=== PATIENT | male | born 1975 | race Two or more races ===

== ENCOUNTER 2016-10-16 12:48 | Emergency (ER) | payer MEDICAID ==
[~2016-10-16] VITALS: Ht 172.7 cm; Wt 72.6 kg
[~2016-10-16 12:48] MED LIST: COLACE100 MG ORAL; METFORMIN HCL500 M1 ORAL; NORCO 5-325 TA1 EAC1 ORAL; NORCO 5-325 TA1 EACH ORAL
[2016-10-16 13:04] VITALS: BP 107/77
--- NOTE | 2016-10-16 13:34 | Emergency Room Report ---
History of Present Illness General Chief Complaint: General Complaint Source: Patient Present Illness HPI 41-year-old male presents to the emergency department requesting evaluation for return to work status post cholecystectomy x2 weeks. Patient states his has not had any followup with his surgeon as he has been having difficulty contacting the surgeon to make an appointment. Patient states he needs to return to work patient had saurabh removed here in the emergency department at recent visit. Patient denies erythema, discharge or pain at the surgical site. He denies nausea, vomiting, fevers, chills. Denies CP, Palpitations, LOC, AMS , dizziness, Changes in Vision, Sensation, paresthesias, or a sudden severe headache. Allergies: Coded Allergies: No Known Allergies (Unverified , 10/08/16) Patient History Past Medical History: see triage record Past Surgical History: none Pertinent Family History: none Immunizations: UTD Reviewed Nursing Documentation: PMH: Agreed, PSxH: Agreed Nursing Documentation-PMH Past Medical History: No History, Except For Hx Hypertension: Yes Hx Diabetes: Yes Review of Systems All Other Systems: negative except mentioned in HPI Physical Exam Vital Signs Date Time Temp Pulse Resp B/P Pulse Ox O2 Delivery O2 Flow Rate FiO2 10/16/16 13:04 98.4 96 18 107/77 99 Room Air Sp02 EP Interpretation: reviewed, normal General Appearance: no apparent distress, alert, GCS 15, non-toxic Head: normocephalic, atraumatic Eyes: bilateral eye PERRL, bilateral eye normal inspection ENT: hearing grossly normal, normal pharynx, no angioedema, normal voice Neck: full range of motion, supple/symm/no masses Respiratory: chest non-tender, lungs clear, normal breath sounds, speaking full sentences Cardiovascular #1: regular rate, rhythm, no edema Gastrointestinal: normal bowel sounds, non tender, soft, no guarding, no rebound Rectal: deferred Genitourinary: normal inspection, no CVA tenderness Musculoskeletal: back normal, gait/station normal, normal range of motion, non- tender, no calf tenderness Neurologic: alert, oriented x3, responsive, motor strength/tone normal, sensory intact, speech normal Psychiatric: judgement/insight normal, memory normal, mood/affect normal, no suicidal/homicidal ideation Skin: normal color, no rash, warm/dry, well hydrated, wd healing/no infection noted - Large surgical incision and approximately 5 inches across the right upper quadrant noted, erythema or increased temperature to palpation no evidence of secondary infection at this time. Lymphatic: no adenopathy Medical Decision Making PA Attestation Dr. Hurtado is my supervising Physician whom patient management has been discussed with. Diagnostic Impression: Primary Impression: Status post biliary surgery Additional Impression: Visit for wound check ER Course Pt. presents to the ED for medical clearance to return to work status post cholecystectomy several weeks ago with inability to follow up with surgeon. Ddx considered but are not limited to wound dehiscence, cellulitis, healing surgical incision Vital signs: are WNL, pt. is afebrile H&PE are most consistent with: normal limited physical examination no evidence of infection. ORDERS: none required at this time, the diagnosis is clinical ED INTERVENTIONS: -Discussed with patient that he needs to follow up with the surgeon or at the hospital where surgery was performed as I am unable to clear him for return to work because I was not involved with the surgical aspect. I offered to help patient attempted to contact DrVidhi called Dr's change service and left a message which also is not returned. Messaging public service administrator gave me alternative number for the surgeon, and I provided that #2 the patient. DISCHARGE: At this time pt. is stable for d/c to law enforcement. Will provide printed patient care instructions, and any necessary prescriptions. Care plan and follow up instructions have been discussed with the patient prior to discharge. Last Vital Signs Date Time Temp Pulse Resp B/P Pulse Ox O2 Delivery O2 Flow Rate FiO2 10/16/16 13:04 98.4 96 18 107/77 99 Room Air Disposition: HOME, SELF-CARE Condition: Stable Patient Instructions: Medical Screening Exam Additional Instructions: your surgeon has been paged will discuss that he needs to schedule your follow up evaluation the office number is Follow up with Surgeon in 3-5 days Return sooner to ED if new symptoms occur, or current symptoms become worse. Kamryn Hargrove Oct 16, 2016 13:34
[2016-10-16 13:40] VITALS: BP 107/77
== END 2016-10-16 13:42 | disposition home or self-care (01) ==
LOC: EMR 13:36
DX: Z48.02 Encounter for removal of sutures (principal); Z90.49 Acquired absence of other specified parts of digestive tract; I10 Essential (primary) hypertension; E11.9 Type 2 diabetes mellitus without complications
CPT/HCPCS: 99282

== ENCOUNTER 2017-08-24 15:56 | Emergency (ER) | payer SELFPAY ==
[~2017-08-24] VITALS: Ht 170.2 cm; Wt 71.7 kg
[2017-08-24] MEDS ORDERED: NKM (16:09)
[2017-08-24 16:17] VITALS: BP 134/84
[2017-08-24] MEDS ORDERED: Ketorolac 30mg Inj IV ONE (16:30)
[2017-08-24 17:35] LABS: ANION GAP 9 mmol/L (5-15); CALCIUM 8.8 MG/DL (8.5-10.1); CARBON DIOXIDE 27 MMOL/L (21-32); CHLORIDE 99 MMOL/L (98-107); CREATININE 0.8 MG/DL (0.55-1.30); GLOMERULAR FILTRATION RATE > 60 mL/min (>60); POTASSIUM 3.9 MMOL/L (3.5-5.1); SODIUM 135 MMOL/L (136-145)
[2017-08-24 17:42] LABS: BASOPHILS % (AUTO) 0.9 % (0.0-2.0); EOSINOPHILS % (AUTO) 0.4 % (0.0-3.0); LYMPHOCYTES % (AUTO) 9.1 % (20.0-45.0); MEAN CORPUSCULAR HGB CONC 31.7 G/DL (32.0-36.0); MEAN CORPUSCULAR VOLUME 95 FL (80-99); MEAN PLATELET VOLUME 8.6 FL (6.5-10.1); MONOCYTES % (AUTO) 5.6 % (1.0-10.0); PLATELET COUNT 235 K/UL (150-450); RED BLOOD COUNT 5.45 M/UL (4.70-6.10); RED CELL DISTRIBUTION WIDTH 11.1 % (11.6-14.8); WHITE BLOOD COUNT 12.3 K/UL (4.8-10.8)
[2017-08-24 17:48] LABS: ALANINE AMINOTRANSFERASE 25 U/L (12-78); ALBUMIN/GLOBULIN RATIO 0.6 (1.0-2.7); ASPARTATE AMINO TRANSFERASE 15 U/L (15-37); CKMB 1.1 NG/ML (0.0-3.6); TOTAL PROTEIN 7.8 G/DL (6.4-8.2)
[2017-08-24 17:51] LABS: APPEARANCE,URINE CLEAR; KETONES,URINE 1+ (NEGATIVE); LEUKOCYTE ESTERASE ,URINE NEGATIVE (NEGATIVE); NITRITE,URINE NEGATIVE (NEGATIVE); PH,URINE 5 (4.5-8.0); PROTEIN,URINE 3+ (NEGATIVE); UROBILINOGEN,URINE NORMAL MG/DL (0.0-1.0)
[2017-08-24 18:12] LABS: AMORPHOUS SEDIMENT,UR FEW /LPF; BACTERIA,URINE FEW /HPF; WBC,URINE 0-2 /HPF (0 - 0)
[2017-08-24 18:31] VITALS: BP 127/75
[2017-08-24] MEDS ORDERED: METFORMIN HCL500 M1 ORAL (19:05)
[2017-08-24] MEDS ORDERED: CEPHALEXIN500 MG ORAL (19:05)
[2017-08-24] MEDS ORDERED: VIBRAMYCIN100 MG ORAL (19:05)
[2017-08-24 19:17] VITALS: BP 140/76
[2017-08-24 19:18] VITALS: BP 140/76
--- NOTE | 2017-08-24 21:02 | Emergency Room Report ---
History of Present Illness General Chief Complaint: Skin Rash/Abscess Source: Patient Present Illness [facility] The patient is a 42 yo male presenting for left foot pain. He states he has a history of diabetes on oral medication but has not been taking it for the past year. He has not seen his primary doctor and this time. Left foot pain began 3 days prior after he believes he cut his skin while cutting his toenails. Pain is now a 10 out of 10 dull ache and does not radiate. Worse with walking and movement. He has not tried any pain medications. He denies other symptoms including nausea, vomiting, fever, chills, chest pain, numbness or tingling, dizziness, blurred vision, SOB, CP, dysuria, increased urinary frequency Allergies: Coded Allergies: No Known Allergies (Unverified , 10/08/16) Patient History Past Medical History: see triage record Pertinent Family History: none Reviewed Nursing Documentation: PMH: Agreed, PSxH: Agreed Nursing Documentation-PMH Hx Hypertension: Yes Hx Diabetes: Yes Review of Systems All Other Systems: negative except mentioned in HPI Physical Exam Vital Signs Date Time Temp Pulse Resp B/P (MAP) Pulse Ox O2 Delivery O2 Flow Rate FiO2 08/24/17 16:02 98.8 110 18 118/77 98 Room Air Sp02 EP Interpretation: reviewed, normal General Appearance: no apparent distress, alert, GCS 15, non-toxic Head: normocephalic, atraumatic Eyes: bilateral eye normal inspection, bilateral eye PERRL ENT: hearing grossly normal, normal pharynx, no angioedema, normal voice Musculoskeletal: back normal, gait/station normal, normal range of motion, no calf tenderness, inflammation - L distal foot, swelling - L distal foot, tender - TTP over the L distal foot Neurologic: alert, oriented x3, responsive, motor strength/tone normal, sensory intact, speech normal Psychiatric: judgement/insight normal, memory normal, mood/affect normal, no suicidal/homicidal ideation Skin: rash - erythema to the L distal foot from mid foot to toes Lymphatic: no adenopathy Medical Decision Making PA Attestation Dr. Friedman is my supervising physician. Patient management was discussed with my supervising physician Diagnostic Impression: Primary Impression: Uncontrolled diabetes mellitus Qualified Codes: E11.8 - Type 2 diabetes mellitus with unspecified complications; E11.65 - Type 2 diabetes mellitus with hyperglycemia Additional Impression: Cellulitis Qualified Codes: L03.119 - Cellulitis of unspecified part of limb ER Course The patient is a 42 yo male presenting for left foot pain. Differential diagnoses considered but not limited to: abscess, cellulitis, insect bite, DKA, hyperglycemia, among others PE: Afebrile. NAD L foot: There is erythema, Soft tissue swelling, and edema from the toes to the mid foot. There is also tenderness to palpation of this area. Full active range of motion of the ankle and toes are intact. Sensation is intact to light touch. No discharge labs: Significant for leukocytosis and hyperglycemia The patient is given IV fluids. Glucose is rechecked the Accu-Chek has decreased by more than 100 The patient is also given IV antibiotics and pain medication. He'll be discharged home and treated for cellulitis. Prescription for Keflex and doxycycline. He needs to followup with his primary doctor soon as possible. He was given prescription for metformin and informed of the importance of diabetes control. ER precautions given Laboratory Tests Test 08/24/17 16:53 08/24/17 17:20 White Blood Count 12.3 K/UL (4.8-10.8) H Red Blood Count 5.45 M/UL (4.70-6.10) Hemoglobin 16.4 G/DL (14.2-18.0) Hematocrit 51.7 % (42.0-52.0) Mean Corpuscular Volume 95 FL (80-99) Mean Corpuscular Hemoglobin 30.0 PG (27.0-31.0) Mean Corpuscular Hemoglobin Concent 31.7 G/DL (32.0-36.0) L Red Cell Distribution Width 11.1 % (11.6-14.8) L Platelet Count 235 K/UL (150-450) Mean Platelet Volume 8.6 FL (6.5-10.1) Neutrophils (%) (Auto) 84.0 % (45.0-75.0) H Lymphocytes (%) (Auto) 9.1 % (20.0-45.0) L Monocytes (%) (Auto) 5.6 % (1.0-10.0) Eosinophils (%) (Auto) 0.4 % (0.0-3.0) Basophils (%) (Auto) 0.9 % (0.0-2.0) Sodium Level 135 MMOL/L (136-145) L Potassium Level 3.9 MMOL/L (3.5-5.1) Chloride Level 99 MMOL/L (98-107) Carbon Dioxide Level 27 MMOL/L (21-32) Anion Gap 9 mmol/L (5-15) Blood Urea Nitrogen 13 mg/dL (7-18) Creatinine 0.8 MG/DL (0.55-1.30) Estimate Glomerular Filtration Rate > 60 mL/min (>60) Glucose Level 360 MG/DL (74-106) H Lactic Acid Level 1.90 mmol/L (0.66-2.22) Calcium Level 8.8 MG/DL (8.5-10.1) Total Bilirubin 0.5 MG/DL (0.2-1.0) Aspartate Amino Transferase (AST) 15 U/L (15-37) Alanine Aminotransferase (ALT) 25 U/L (12-78) Alkaline Phosphatase 149 U/L (46-116) H Total Creatine Kinase 68 U/L (26-308) Creatine Kinase MB 1.1 NG/ML (0.0-3.6) Creatine Kinase MB Relative Index 1.6 Troponin I 0.000 ng/mL (0.000-0.056) Total Protein 7.8 G/DL (6.4-8.2) Albumin 2.9 G/DL (3.4-5.0) L Globulin 4.9 g/dL Albumin/Globulin Ratio 0.6 (1.0-2.7) L Urine Color Pale yellow Urine Appearance Clear Urine pH 5 (4.5-8.0) Urine Specific [place] 1.010 (1.005-1.035) Urine Protein 3+ (NEGATIVE) H Urine Glucose (UA) 4+ (NEGATIVE) H Urine Ketones 1+ (NEGATIVE) H Urine Occult Blood 3+ (NEGATIVE) H Urine Nitrite Negative (NEGATIVE) Urine Bilirubin Negative (NEGATIVE) Urine Urobilinogen Normal MG/DL (0.0-1.0) Urine Leukocyte Esterase Negative (NEGATIVE) Urine RBC 5-10 /HPF (0 - 0) H Urine WBC 0-2 /HPF (0 - 0) Urine Squamous Epithelial Cells None /LPF (NONE/OCC) Urine Amorphous Sediment Few /LPF (NONE) H Urine Bacteria Few /HPF (NONE) Acetone, Qualitative Positive Lab Results Impression Significant for leukocytosis and hyperglycemia Last Vital Signs Date Time Temp Pulse Resp B/P (MAP) Pulse Ox O2 Delivery O2 Flow Rate FiO2 08/24/17 19:18 98.9 99 22 140/76 97 Room Air Status: improved Disposition: HOME, SELF-CARE Condition: Improved Scripts Doxycycline Hyclate* (VIBRAMYCIN*) 100 Mg Capsule 100 MG ORAL EVERY 12 HOURS, #14 CAP 0 Refills Prov: FOREIGNANTHAO P.A. 08/24/17 Cephalexin* (KEFLEX*) 500 Mg Capsule 500 MG ORAL EVERY 12 HOURS, #14 CAP 0 Refills Prov: FOREIGNANTHAO P.A. 08/24/17 Metformin Hcl* (METFORMIN HCL*) 500 Mg Tablet 500 MG ORAL TWICE A DAY, #30 TAB Prov: THAO BLANDON.A. 08/24/17 Patient Instructions: Cellulitis, Type 2 Diabetes Mellitus, Adult, [id number] Additional Instructions: I discussed my findings with the patient. All questions and concerns have been answered. Treatment and medication compliance have been addressed. Return to ED if symptoms worsen, new symptoms arise such as fever or numbness, or if needed for any reason. Patient verbalized understanding of discharge instructions. Please follow up with her primary doctor for wound check within 2 days. THAO BLANDON Aug 24, 2017 21:02
--- NOTE | 2017-08-26 16:57 | Cardiology Report ---
APPROVED REPORT EKG Measurement Heart [id number] Sinus tachycardia Otherwise normal ECG
== END 2017-08-24 19:19 | disposition home or self-care (01) ==
LOC: EMR 16:18
DX: L03.116 Cellulitis of left lower limb (principal); E11.65 Type 2 diabetes mellitus with hyperglycemia; I10 Essential (primary) hypertension; D72.829 Elevated white blood cell count, unspecified
CPT/HCPCS: 36415; 80053; 81003; 82009; 82550; 82553; 82962; 83605; 84484; 85025; 87040; 93005; 96361; 96374; 99284; J1885

== ENCOUNTER 2017-08-27 11:08 | Inpatient (IN) | payer SELFPAY ==
[~2017-08-27] VITALS: Ht 167.6 cm; Wt 74.8 kg
[~2017-08-27 11:08] MED LIST changes: +CEPHALEXIN500 MG ORAL; +NKM; +VIBRAMYCIN100 MG ORAL
[2017-08-27 11:31] VITALS: BP 163/94
[2017-08-27] MEDS ORDERED: Vancomycin 1gm inj IVPB ONE (11:44)
[2017-08-27] MEDS ORDERED: Vancomycin 1 GM in D5W 275 ML IVPB ONE (11:45)
[2017-08-27] MEDS ORDERED: Morphine Sulfate 4mg/ml Inj IVP ONE (11:45)
[2017-08-27] MEDS ORDERED: Hydrogen Peroxide 473ml Bottle TOPIC ONE ×2 (12:18→13:00)
[2017-08-27 12:20] LABS: EOSINOPHILS % (AUTO) 1.5 % (0.0-3.0); LYMPHOCYTES % (AUTO) 21.1 % (20.0-45.0); MEAN CORPUSCULAR HEMOGLOBIN 30.6 PG (27.0-31.0); MEAN CORPUSCULAR HGB CONC 33.2 G/DL (32.0-36.0); MEAN CORPUSCULAR VOLUME 92 FL (80-99); MEAN PLATELET VOLUME 9.2 FL (6.5-10.1); MONOCYTES % (AUTO) 9.2 % (1.0-10.0); NEUTROPHILS % (AUTO) 67.2 % (45.0-75.0); PLATELET COUNT 303 K/UL (150-450); RED BLOOD COUNT 5.43 M/UL (4.70-6.10); RED CELL DISTRIBUTION WIDTH 10.3 % (11.6-14.8); WHITE BLOOD COUNT 6.7 K/UL (4.8-10.8)
[2017-08-27 12:25] LABS: INR 0.9 (0.9-1.1); PROTHROMBIN TIME 9.8 SEC (9.30-11.50)
--- NOTE | 2017-08-27 12:28 | Emergency Room Report ---
History of Present Illness General Chief Complaint: General Complaint Source: Patient, Medical Record Present Illness HPI The patient presents with increased pain and worsening of his left foot and third toe. He was seen in August 24 and begun on antibiotics for cellulitis. He states that the pain has been increasing. He's been continuing to work. Also there is drainage from the toe. His last tetanus was a year ago. He has diabetes and his blood sugar was out of control 3 days ago. He was given a prescription for metformin at that time. He denies fevers or chills. Pain is 10/10 in the toe and foot radiating somewhat to the ankle. It is aching and burning pain. He took S[place]ulpa with minimal relief. No NVD, dysuria, chest pain, URI sy, dyspnea, headache. 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 Nursing Documentation: PMH: Agreed, PSxH: Agreed Nursing Documentation-PMH Past Medical History: No History, Except For Hx Hypertension: Yes Hx Diabetes: Yes Review of Systems All Other Systems: negative except mentioned in HPI Physical Exam Vital Signs Date Time Temp Pulse Resp B/P (MAP) Pulse Ox O2 Delivery O2 Flow Rate FiO2 08/27/17 11:14 98.1 106 18 162/100 100 Room Air Sp02 EP Interpretation: reviewed, normal General Appearance: well appearing, no apparent distress, GCS 15 Head: normocephalic Eyes: bilateral eye normal inspection, bilateral eye PERRL ENT: moist mucus membranes Neck: supple Respiratory: lungs clear, normal breath sounds Cardiovascular #1: tachycardia Cardiovascular #2: 2+ radial (R), 2+ dorsalis pedis (L) Gastrointestinal: normal inspection, normal bowel sounds, non tender, no mass, non-distended Musculoskeletal: back normal, inflammation, swelling - 3rd toe L, tender Neurologic: alert, oriented x3, grossly normal Psychiatric: other - in pain and frustrated Skin: warm/dry, other - erythema of dorsum of L foot with swelling. 3rd toe is darkened with serosanguinous drainage Medical Decision Making Diagnostic Impression: Primary Impression: Osteomyelitis left third toe Additional Impression: Hyperglycemia ER Course Diabetic patient presents with prior diagnosis of cellulitis of L foot with worsened pain and drainage from 3rd toe. Ddx: cellulitis, osteomyelitis, gangrene amongst others. Emergent evaluation with xrays, labs, cultures. Treatment with IV hydration, analgesia and antibiotics IV. The foot will be cleansed. Xrays with osteo and gas. EKG without injury. CXR normal. Labs with elevated ESR and normalized WBC, elevated glucose and lactate. Antibiotics begun. Patient with epigastric pain and vomiting after morphine. Pepcid, Reglan and benadryl given with relief. Improved with treatment. Admit Dr. Gibson with orthopedic consult. Laboratory Tests Test 08/27/17 11:54 08/27/17 13:30 White Blood Count 6.7 K/UL (4.8-10.8) Red Blood Count 5.43 M/UL (4.70-6.10) Hemoglobin 16.6 G/DL (14.2-18.0) Hematocrit 50.0 % (42.0-52.0) Mean Corpuscular Volume 92 FL (80-99) Mean Corpuscular Hemoglobin 30.6 PG (27.0-31.0) Mean Corpuscular Hemoglobin Concent 33.2 G/DL (32.0-36.0) Red Cell Distribution Width 10.3 % (11.6-14.8) L Platelet Count 303 K/UL (150-450) Mean Platelet Volume 9.2 FL (6.5-10.1) Neutrophils (%) (Auto) 67.2 % (45.0-75.0) Lymphocytes (%) (Auto) 21.1 % (20.0-45.0) Monocytes (%) (Auto) 9.2 % (1.0-10.0) Eosinophils (%) (Auto) 1.5 % (0.0-3.0) Basophils (%) (Auto) 1.0 % (0.0-2.0) Erythrocyte Sedimentation Rate 27 MM/HR (0-15) H Prothrombin Time 9.8 SEC (9.30-11.50) Prothrombin Time INR 0.9 (0.9-1.1) PTT 29 SEC (23-33) Sodium Level 134 MMOL/L (136-145) L Potassium Level 3.7 MMOL/L (3.5-5.1) Chloride Level 96 MMOL/L (98-107) L Carbon Dioxide Level 28 MMOL/L (21-32) Anion Gap 10 mmol/L (5-15) Blood Urea Nitrogen 15 mg/dL (7-18) Creatinine 1.0 MG/DL (0.55-1.30) Estimate Glomerular Filtration Rate > 60 mL/min (>60) Glucose Level 384 MG/DL (74-106) H Lactic Acid Level 3.40 mmol/L (0.66-2.22) H Pending Calcium Level 9.3 MG/DL (8.5-10.1) Total Bilirubin 0.4 MG/DL (0.2-1.0) Aspartate Amino Transferase (AST) 13 U/L (15-37) L Alanine Aminotransferase (ALT) 22 U/L (12-78) Alkaline Phosphatase 139 U/L (46-116) H Total Creatine Kinase 36 U/L (26-308) Troponin I < 0.017 ng/mL (0.000-0.056) Total Protein 7.8 G/DL (6.4-8.2) Albumin 2.7 G/DL (3.4-5.0) L Globulin 5.1 g/dL Albumin/Globulin Ratio 0.5 (1.0-2.7) L EKG Diagnostic Results Rate: tachycardiac ST Segments: no acute changes Rhythm Strip Diag. Results EP Interpretation: yes Rhythm: no PVC's, no ectopy - Sinus tachycardia Chest X-Ray Diagnostic Results Chest X-Ray Diagnostic Results : Chest X-Ray Ordered: Yes # of Views/Limited/Complete: 1 View Indication: Other Interpretation: no consolidation, no effusion, no pneumothorax Impression: No acute disease - poor inspiration Electronically Signed by: Electronically signed by Massimo Griffith MD Other X-Ray Diagnostic Results Other X-Ray Diagnostic Results : X-Ray ordered: Left foot # of Views/Limited Vs Complete: 3 View Indication: Other Interpretation: no dislocation, no fractures, other - bone destruction and gas Status: improved Disposition: ADMITTED INPATIENT Condition: Serious Referrals: NOT CHOSEN VICKI/,REFERRING (PCP) Massimo Griffith M.D. Aug 27, 2017 12:28
[2017-08-27] MEDS ORDERED: DiphenhydrAMINE 50mg/ml Inj IVP ONE (12:30)
[2017-08-27] MEDS ORDERED: Metoclopramide 10mg/2ml Inj IVP ONE (12:30)
[2017-08-27 12:40] LABS: ANION GAP 10 mmol/L (5-15); CALCIUM 9.3 MG/DL (8.5-10.1); CARBON DIOXIDE 28 MMOL/L (21-32); CHLORIDE 96 MMOL/L (98-107); GLOMERULAR FILTRATION RATE > 60 mL/min (>60); POTASSIUM 3.7 MMOL/L (3.5-5.1); SODIUM 134 MMOL/L (136-145)
[2017-08-27 12:45] LABS: ALANINE AMINOTRANSFERASE 22 U/L (12-78); ALBUMIN/GLOBULIN RATIO 0.5 (1.0-2.7); ASPARTATE AMINO TRANSFERASE 13 U/L (15-37); TOTAL PROTEIN 7.8 G/DL (6.4-8.2)
[2017-08-27 12:54] VITALS: BP 159/88
[2017-08-27 12:56] LABS: REFLEX LACTIC ACID YES OR NO YES
[2017-08-27 13:22] LABS: ERYTHROCYTE SEDIMENTATION RATE 27 MM/HR (0-15)
[2017-08-27] MEDS ORDERED: Zosyn 3.375gm/50ml Premix 50 ML IVPB STA (14:04)
[2017-08-27] MEDS ORDERED: Albuterol/Ipratropium 3ml neb HHN PRN (15:00)
[2017-08-27] MEDS ORDERED: Miralax 17gm pkt ORAL PRN (15:00)
[2017-08-27] MEDS ORDERED: Nitroglycerin Subl 0.4mg tab SL PRN (15:00)
[2017-08-27 15:11] LABS: APPEARANCE,URINE CLEAR; KETONES,URINE NEGATIVE (NEGATIVE); LEUKOCYTE ESTERASE ,URINE NEGATIVE (NEGATIVE); NITRITE,URINE NEGATIVE (NEGATIVE); PH,URINE 5 (4.5-8.0); PROTEIN,URINE 3+ (NEGATIVE); UROBILINOGEN,URINE 1 MG/DL (0.0-1.0)
[2017-08-27 15:25] LABS: BACTERIA,URINE FEW /HPF; WBC,URINE 0-2 /HPF (0 - 0)
[2017-08-27 15:30] VITALS: BP 133/82
--- NOTE | 2017-08-27 15:34 | Diagnostic Imaging Report ---
Indication: Pain Technique: 3 views left foot Comparison: none Findings: There is a soft tissue defect involving the tip of the third toe. There are possibly some soft tissue gas bubbles. There is evidence of destruction of the terminal tuft of the third distal phalanx. There is slight irregularity of the terminal tuft of the seconds distal phalanx, although this appears fairly well-corticated and with fairly sharp margins. There is questionably some tissue loss at the tip of the second digit. No acute fractures. No dislocations. No other evidence of osseous erosions. The joint spaces are preserved. There is hallux [place] and metatarsus adductus. Impression: Evidence of destruction of the terminal tuft of the third distal phalanx, worrisome process myelitis. Overlying soft tissue defect likely relates to stated clinical history of gangrene. Possible gas bubbles are noted, may indicate open wound or infection with gas-forming organism Equivocal soft tissue and bony abnormality of the terminal tuft of the second digit. Tissue loss and osteomyelitis in this area not completely excludable. Consider MRI for better characterization
--- NOTE | 2017-08-27 15:39 | Diagnostic Imaging Report ---
Indication: Chest pain Technique: One view of the chest Comparison: none Findings: Inspiration is suboptimal. The lungs and pleural spaces are clear. Calcified granuloma is seen in the left lung apex Impression: Evidence of old granulomatous disease No acute process
--- NOTE | 2017-08-27 16:05 | Consultation ---
Consult Note Assessment/Plan Podiatry Consult Dictated A/ 1) Gas left 3rd toe 2) OM left 3rd toe 3) Cellulitis of left foot 4) DM 5) Diabetic Neuropathy P/ 1) Consent obtained and bedside I&D performed. Deep cultures were taken. 2) Cont IV abx 3) Will order wound care 4) Will monitor Thank you Maykel Zabala DPM Aug 27, 2017 16:05
[2017-08-27] MEDS: NovoLOG Insulin Flexpen SUBQ SCH ×2 (16:46→20:45)
[2017-08-27] MEDS: Cefepime HCl 2 GM in D5W 55 ML IV SCH (17:58)
[2017-08-27] MEDS ORDERED: Cefepime HCl 2 GM in D5W 110 ML IV SCH (18:00)
--- NOTE | 2017-08-27 18:30 | Consultation ---
DATE OF CONSULTATION: 08/27/2017 CONSULTING PHYSICIAN: Maykel Vuong D.P.M. REQUESTING PHYSICIAN: Elder Gibson M.D. REASON FOR CONSULTATION: Diabetic foot ulcer, cellulitis, possible gas. HISTORY OF PRESENT ILLNESS: The patient is a 42-year-old male, who was admitted to [facility] today for worsening infection of the left foot. He states that he was here a few days ago in the ER and was triaged and given intravenous antibiotics and discharged. Subsequently, he returned today with worsening infection, which required admission. The patient admits to some pain in the left foot. Denies any fevers, chills, nausea, or vomiting. PAST MEDICAL HISTORY: Significant for diabetes mellitus. MEDICATIONS: Per DEC and include heparin for DVT prophylaxis, vancomycin, cefepime and Zosyn. ALLERGIES: He has no known drug allergies. SOCIAL HISTORY: Noncontributory. FAMILY HISTORY: Noncontributory. REVIEW OF SYSTEMS: As above. PHYSICAL EXAMINATION: VITAL SIGNS: Temperature is 97.8 degrees, pulse is 101, respiration rate is 18, blood pressure is 136/74, and saturating 100% on room air. EXTREMITIES: Lower extremity physical exam, vascular, palpable pedal pulses noted bilaterally. Left foot is warmer than the right. There is hair noted on the digits. DERMATOLOGICAL: There is erythema noted on the dorsum of the left foot. Left third toe was bulbous. Also, the tip of the toe necrotic, malodorous and is discharge noted from the of the toe. Digital interspaces are macerated on adjacent interspaces of the third toe. Right dermatological exam is unremarkable. NEUROLOGICAL: Protective threshold is absent. MUSCULOSKELETAL: There is 5/5 muscle strength noted in anterolateral and posterior muscle groups of bilateral lower extremities. He has no gross deformity noted. LABORATORY AND DIAGNOSTIC DATA: White blood cell count is 6.7, hemoglobin and hematocrit is 16.6 and 50. ESR is 27. Lactic acid is 2.50. Potassium 3.7, creatinine is 1.0, glucose is 384, and BUN is 15. Albumin is 2.7. INR is 0.9. Lower extremity imaging, x-ray of the left foot shows evidence of destruction of the terminal tuft of the third distal phalanx, possible osteomyelitis overlying soft tissue defect likely relates to clinical history of gangrene, possible gas bubbles are noted, may indicate old open wound or infection with gas-forming organism. ASSESSMENT: 1. Gas left third toe. 2. Osteomyelitis of left third toe. 3. Cellulitis of left foot. 4. Diabetes mellitus. 5. Diabetic neuropathy. PLAN: 1. Consent was obtained from the patient to perform incision and drainage of the left third toe. Risks and benefits were explained to the patient. The patient agreed and signed the consent. The patient was identified. Correct site was identified and time out. Incision was made at the distal aspect of the left third toe. Nonviable tissue was removed and a ulceration was noted at the distal aspect of the third toe. This probes to bone. Purulence was noted and drained. Again, the distal phalanx was exposed. Malodor was noted. Cultures were taken and irrigated and thoroughly. Wound was dressed. The patient tolerated the procedure well. 2. Wound care orders were placed. 3. Continue IV antibiotics. 4. We will monitor the patient's condition. Thank you for the courtesy of this consultation, Dr. Gibson. Maykel Vuong D.P.M. DR: STEFANY JOB#: [id number] CC:
[2017-08-27 19:47] VITALS: BP 139/88
[2017-08-27] MEDS: Morphine Sulfate 2mg/ml Inj IVP PRN (20:43)
[2017-08-27] MEDS: Heparin 5000 units/ml inj SUBQ SCH (20:45)
[2017-08-27] MEDS: Vancomycin 1250mg/D5W 250ml IVPB SCH (20:46)
--- NOTE | 2017-08-27 21:43 | History & Physical ---
History and Physical History & Physicial JoB # [id number] Zachariah Solomon MD Aug 27, 2017 21:43
--- NOTE | 2017-08-27 22:42 | Pulmonology Progress Note ---
Assessment/Plan Problems: (1) Osteomyelitis of toe of left foot (2) Abnormal liver function test (3) Gangrene Assessment/Plan wound care IV abx podiatry Subjective Constitutional: Reports: no symptoms Respiratory: Reports: no symptoms Allergies: Coded Allergies: No Known Allergies (Unverified , 10/08/16) Objective Last 24 Hour Vital Signs Date Time Temp Pulse Resp B/P (MAP) Pulse Ox O2 Delivery O2 Flow Rate FiO2 08/27/17 21:22 98.2 08/27/17 19:47 98.2 86 18 139/88 97 Room Air 08/27/17 19:44 88 20 Room Air 08/27/17 16:48 98.5 08/27/17 15:30 97.6 82 18 133/82 100 Room Air 08/27/17 15:00 101 18 136/74 100 Room Air 08/27/17 12:54 97.8 115 18 159/88 100 Room Air 08/27/17 11:31 97.9 101 18 163/94 Room Air 08/27/17 11:14 98.1 106 18 162/100 100 Room Air Intake and Output 08/27/17 08/28/17 19:00 07:00 Intake Total 0 ml Balance 0 ml Intake Oral 0 ml General Appearance: WD/WN HEENT: normocephalic, atraumatic, PERRL Respiratory/Chest: chest wall non-tender, lungs clear Cardiovascular: normal peripheral pulses, regular rhythm Abdomen: normal bowel sounds, soft, non tender Genitourinary: normal external genitalia Extremities: no cyanosis Skin: no lesions, no ulcers Neurologic/Psychiatric: hand roller II-XII grossly normal Lymphatic: no neck adenopathy Laboratory Tests 08/27/17 11:54: White Blood Count 6.7, Red Blood Count 5.43, Hemoglobin 16.6, Hematocrit 50.0, Mean Corpuscular Volume 92, Mean Corpuscular Hemoglobin 30.6, Mean Corpuscular Hemoglobin Concent 33.2, Red Cell Distribution Width 10.3L, Platelet Count 303, Mean Platelet Volume 9.2, Neutrophils (%) (Auto) 67.2, Lymphocytes (%) (Auto) 21.1, Monocytes (%) (Auto) 9.2, Eosinophils (%) (Auto) 1.5, Basophils (%) (Auto ) 1.0, Erythrocyte Sedimentation Rate 27H, Prothrombin Time 9.8, Prothromb Time International Ratio 0.9, Activated Partial Thromboplast Time 29, Sodium Level 134L, Potassium Level 3.7, Chloride Level 96L, Carbon Dioxide Level 28, Anion Gap 10, Blood Urea Nitrogen 15, Creatinine 1.0, Estimat Glomerular Filtration Rate > 60, Glucose Level 384H, Lactic Acid Level 3.40H, Calcium Level 9.3, Total Bilirubin 0.4, Aspartate Amino Transf (AST/SGOT) 13L, Alanine Aminotransferase (ALT/SGPT) 22, Alkaline Phosphatase 139H, Total Creatine Kinase 36, Troponin I < 0.017, Total Protein 7.8, Albumin 2.7L, Globulin 5.1, Albumin/Globulin Ratio 0.5L 08/27/17 13:30: Lactic Acid Level 2.50H 08/27/17 14:42: Urine Color Yellow, Urine Appearance Clear, Urine pH 5, Urine Specific [place] 1.010, Urine Protein 3+H, Urine Glucose (UA) 4+H, Urine Ketones Negative, Urine Occult Blood 2+H, Urine Nitrite Negative, Urine Bilirubin Negative, Urine Urobilinogen 1H, Urine Leukocyte Esterase Negative, Urine RBC 2-4H, Urine WBC 0- 2, Urine Squamous Epithelial Cells None, Urine Bacteria Few Current Medications Medications (Trade) Dose Ordered Sig/Ghazal Route PRN Reason Start Time Stop Time Status Last Admin Dose Admin Acetaminophen (Tylenol) 650 mg Q4H PRN ORAL fever 08/27/17 15:00 09/26/17 14:59 Albuterol/ Ipratropium (Albuterol/ Ipratropium) 3 ml Q4H PRN HHN Shortness of Breath 08/27/17 15:00 09/01/17 14:59 Cefepime HCl 2 gm/ Dextrose 55 ml @ 110 mls/hr Q12HR@0600,1800 IV 08/27/17 18:00 09/03/17 17:59 08/27/17 17:58 Dextrose (Dextrose 50%) STAT PRN IV Hypoglycemia 08/27/17 15:00 09/26/17 14:59 Heparin Sodium (Porcine) (Heparin 5000 units/ml) 5,000 units EVERY 12 HOURS SUBQ 08/27/17 21:00 09/26/17 20:59 08/27/17 20:45 Insulin Aspart (NovoLOG) BEFORE MEALS AND HS SUBQ 08/27/17 16:30 09/26/17 16:29 08/27/17 20:45 Metformin HCl (Glucophage) 500 mg BEFORE LUNCH ORAL 08/28/17 11:30 09/27/17 11:29 Metformin HCl (Glucophage) 1,000 mg BIAC ORAL 08/28/17 06:30 09/27/17 06:29 Morphine Sulfate (Morphine Sulfate) 2 mg Q4H PRN IVP Moderate Pain (Pain Scale 4-6) 08/27/17 15:00 09/03/17 14:59 08/27/17 20:43 Ondansetron HCl (Zofran) 4 mg Q6H PRN IVP Nausea & Vomiting 08/27/17 15:00 09/26/17 14:59 Polyethylene Glycol (Miralax) 17 gm DAILYPRN PRN ORAL Constipation 08/27/17 15:00 09/26/17 14:59 Sodium Chloride 1,000 ml @ 100 mls/hr Q10H IV 08/27/17 21:45 09/26/17 21:44 08/27/17 22:00 Temazepam (Restoril) 15 mg HSPRN PRN ORAL Insomnia 08/27/17 15:00 09/03/17 14:59 Vancomycin HCl (Vanco rx to dose) 1 ea DAILY PRN MISC . 08/27/17 15:45 09/26/17 15:44 Vancomycin HCl/ Dextrose 250 ml @ 166.667 mls/hr Q12HR IVPB 08/27/17 21:00 09/01/17 20:59 08/27/17 20:46 CESAR SRINIVASAN Aug 27, 2017 22:42
--- NOTE | 2017-08-28 | History and Physical Report ---
DATE OF ADMISSION: 08/27/2017 CHIEF COMPLAINT: Left foot second toe gangrene. HISTORY OF PRESENT ILLNESS: This is a 42-year-old gentleman with past medical history significant for diabetes type 2, history of cholecystectomy, who presented to the emergency room complaining about the worsening infection of the left foot. The patient was noted that he was in the emergency room a few days ago and was given IV antibiotics and subsequently discharged. The patient returned today with worsening infection, which required admission and the patient has some pain in the left foot. Denies any fever or chills. Denies any nausea or vomiting. Shortly after initial evaluation in the emergency room, the patient was admitted to the hospital with diabetic foot ulcer with cellulitis and gas gangrene. PAST MEDICAL HISTORY/PAST SURGICAL HISTORY: As above. History of diabetes type 2 and cholecystectomy. MEDICATIONS: Medications at home are significant for Maurice and metformin. ALLERGIES: No known drug allergies. SOCIAL HISTORY: Denies any smoking. Socially drinks. No substance abuse. FAMILY HISTORY: Noncontributory. REVIEW OF SYSTEMS: Mostly as above. Denies any dysuria, frequency, hematuria, or hematochezia. PHYSICAL EXAMINATION: VITAL SIGNS: On admission, temperature 98.1, pulse of 106, respirations 18, and blood pressure 162/100. GENERAL: The patient is awake, responsive, in no acute distress. HEAD AND NECK: Pupils are reactive to light. Extraocular movements intact. Neck was supple. No JVD. LUNGS: Good air entry. No wheeze or rales. HEART: S1 and S2. Regular rhythm. No gallop or rub. ABDOMEN: Soft, nondistended, and nontender. Positive bowel sounds. EXTREMITIES: No cyanosis, clubbing, or edema. Left lower extremity has a dressing. NEUROLOGIC: Cranial nerves II through XII are grossly intact. Motor is 5/5 in all extremities. LABORATORY AND DIAGNOSTIC DATA: Laboratory on admission with WBC of 6.7, hemoglobin 16, hematocrit 50, platelets 303. Sodium 134, potassium 3.7, chloride 96, bicarbonate 28, BUN 15, creatinine 1.0, glucose is 384. Lactic acid is 3.40, repeat was 2.5. Troponin less than 0.17. Alkaline phosphatase 139. PT of 9.8, INR is 0.9, PTT of 29. Urinalysis, +4 glucose, +3 protein, +2 occult blood, nitrite negative, and leukocyte esterase negative. X-ray of the foot noted the patient has evidence of destruction of the terminal tuft of the third distal phalanx, worrisome for myelitis, overlying soft tissue defect related to the stated clinical history of the gangrene, possible gas bubble are noted, may indicate an open wound or infection with a gas forming organism. Tissue loss and osteomyelitis of was also noted. IMPRESSION: 1. Uncontrolled diabetes type 2. 2. Gas gangrene of the left second toe. 3. Proteinuria. 4. Hyponatremia. PLAN: Admit the patient to Med/Surg. We will follow up with Dr. Vuong's recommendation, who had seen the patient already, incised and drained abscess. Follow up with the culture. Broad-spectrum antibiotic with vancomycin and cefepime, and we will follow up with pain medication. Accu-Chek with sliding scale. IV hydration and we will monitor laboratory in the morning. Code status is Full Code. DVT prophylaxis at low risk. Zachariah Solomon M.D. DR: Kwadwo JOB#: [id number] CC:
[2017-08-28] MEDS ORDERED: Vancomycin 1 GM in D5W 275 ML IV SCH (00:30)
[2017-08-28 04:00] VITALS: BP 132/86
[2017-08-28] MEDS: Cefepime HCl 2 GM in D5W 55 ML IV SCH ×2 (06:01→20:22)
[2017-08-28] MEDS: metFORMIN 500mg tab ORAL SCH ×3 (06:01→17:02)
[2017-08-28] MEDS: NovoLOG Insulin Flexpen SUBQ SCH ×4 (06:02→20:46)
[2017-08-28 07:10] LABS: BASOPHILS % (AUTO) 1.2 % (0.0-2.0); EOSINOPHILS % (AUTO) 3.8 % (0.0-3.0); LYMPHOCYTES % (AUTO) 35.2 % (20.0-45.0); MEAN CORPUSCULAR HGB CONC 33.9 G/DL (32.0-36.0); MEAN CORPUSCULAR VOLUME 92 FL (80-99); MEAN PLATELET VOLUME 8.5 FL (6.5-10.1); MONOCYTES % (AUTO) 14.7 % (1.0-10.0); NEUTROPHILS % (AUTO) 45.1 % (45.0-75.0); PLATELET COUNT 286 K/UL (150-450); RED BLOOD COUNT 4.96 M/UL (4.70-6.10); RED CELL DISTRIBUTION WIDTH 10.6 % (11.6-14.8); WHITE BLOOD COUNT 5.2 K/UL (4.8-10.8)
[2017-08-28 07:31] LABS: MAGNESIUM 1.7 MG/DL (1.8-2.4)
[2017-08-28 07:34] LABS: ALANINE AMINOTRANSFERASE 98 U/L (12-78); ALBUMIN/GLOBULIN RATIO 0.5 (1.0-2.7); ANION GAP 7 mmol/L (5-15); ASPARTATE AMINO TRANSFERASE 51 U/L (15-37); CALCIUM 9.1 MG/DL (8.5-10.1); CARBON DIOXIDE 29 MMOL/L (21-32); CHLORIDE 103 MMOL/L (98-107); CREATININE 0.8 MG/DL (0.55-1.30); GLOMERULAR FILTRATION RATE > 60 mL/min (>60); POTASSIUM 4.3 MMOL/L (3.5-5.1); SODIUM 139 MMOL/L (136-145)
[2017-08-28 08:00] VITALS: BP 124/76
[2017-08-28] MEDS: Morphine Sulfate 2mg/ml Inj IVP PRN ×3 (08:05→21:50)
[2017-08-28] MEDS: Vancomycin 1250mg/D5W 250ml IVPB SCH ×2 (08:32→21:51)
[2017-08-28] MEDS: Heparin 5000 units/ml inj SUBQ SCH ×2 (08:34→20:25)
--- NOTE | 2017-08-28 09:30 | Pulmonology Progress Note ---
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 monomer recovery operator followed s/p I&D of L 3 rd toe wound wound care as per monomer recovery operator recommendations empiric abx fup with cx ID consult X ray left foot noted( likely gangrene,suspicious for osteo) MRI L foot - per ID discretion Venous Duplex BLE pain management BS management, HgA1c -9.8, not at goal , add Levemir, continue SS of insulin, Metformin DVT prophylaxis Bowel regimen case discussed and evaluated by supervising physician Subjective Allergies: Coded Allergies: No Known Allergies (Unverified , 10/08/16) Subjective denies chest pain, SOB pain Left foot, intermittently relieved with analgesics BS not well controlled Objective Last 24 Hour Vital Signs Date Time Temp Pulse Resp B/P (MAP) Pulse Ox O2 Delivery O2 Flow Rate FiO2 08/28/17 08:00 97.9 82 18 124/76 100 Room Air 08/28/17 07:55 81 18 Room Air 08/28/17 04:00 98.6 95 18 132/86 100 Room Air 08/27/17 21:22 98.2 08/27/17 19:47 98.2 86 18 139/88 97 Room Air 08/27/17 19:44 88 20 Room Air 08/27/17 16:48 98.5 08/27/17 15:30 97.6 82 18 133/82 100 Room Air 08/27/17 15:00 101 18 136/74 100 Room Air 08/27/17 12:54 97.8 115 18 159/88 100 Room Air 08/27/17 11:31 97.9 101 18 163/94 Room Air 08/27/17 11:14 98.1 106 18 162/100 100 Room Air General Appearance: WD/WN, no acute distress HEENT: normocephalic, atraumatic, anicteric, mucous membranes moist Respiratory/Chest: lungs clear, no respiratory distress, no accessory muscle use Cardiovascular: normal rate, regular rhythm, no JVD Abdomen: normal bowel sounds, soft, non tender, non distended Extremities: other - Left foot with dressing C/D/I Neurologic/Psychiatric: no motor/sensory deficits, alert, oriented x 3, responsive Laboratory Tests 08/27/17 11:54: White Blood Count 6.7, Red Blood Count 5.43, Hemoglobin 16.6, Hematocrit 50.0, Mean Corpuscular Volume 92, Mean Corpuscular Hemoglobin 30.6, Mean Corpuscular Hemoglobin Concent 33.2, Red Cell Distribution Width 10.3L, Platelet Count 303, Mean Platelet Volume 9.2, Neutrophils (%) (Auto) 67.2, Lymphocytes (%) (Auto) 21.1, Monocytes (%) (Auto) 9.2, Eosinophils (%) (Auto) 1.5, Basophils (%) (Auto ) 1.0, Erythrocyte Sedimentation Rate 27H, Prothrombin Time 9.8, Prothromb Time International Ratio 0.9, Activated Partial Thromboplast Time 29, Sodium Level 134L, Potassium Level 3.7, Chloride Level 96L, Carbon Dioxide Level 28, Anion Gap 10, Blood Urea Nitrogen 15, Creatinine 1.0, Estimat Glomerular Filtration Rate > 60, Glucose Level 384H, Lactic Acid Level 3.40H, Calcium Level 9.3, Total Bilirubin 0.4, Aspartate Amino Transf (AST/SGOT) 13L, Alanine Aminotransferase (ALT/SGPT) 22, Alkaline Phosphatase 139H, Total Creatine Kinase 36, Troponin I < 0.017, Total Protein 7.8, Albumin 2.7L, Globulin 5.1, Albumin/Globulin Ratio 0.5L 08/27/17 13:30: Lactic Acid Level 2.50H 08/27/17 14:42: Urine Color Yellow, Urine Appearance Clear, Urine pH 5, Urine Specific [place] 1.010, Urine Protein 3+H, Urine Glucose (UA) 4+H, Urine Ketones Negative, Urine Occult Blood 2+H, Urine Nitrite Negative, Urine Bilirubin Negative, Urine Urobilinogen 1H, Urine Leukocyte Esterase Negative, Urine RBC 2-4H, Urine WBC 0- 2, Urine Squamous Epithelial Cells None, Urine Bacteria Few 08/28/17 05:30: White Blood Count 5.2, Red Blood Count 4.96, Hemoglobin 15.4, Hematocrit 45.4, Mean Corpuscular Volume 92, Mean Corpuscular Hemoglobin 31.0, Mean Corpuscular Hemoglobin Concent 33.9, Red Cell Distribution Width 10.6L, Platelet Count 286, Mean Platelet Volume 8.5, Neutrophils (%) (Auto) 45.1, Lymphocytes (%) (Auto) 35.2, Monocytes (%) (Auto) 14.7H, Eosinophils (%) (Auto) 3.8H, Basophils (%) ( Auto) 1.2, Sodium Level 139, Potassium Level 4.3, Chloride Level 103, Carbon Dioxide Level 29, Anion Gap 7, Blood Urea Nitrogen 9, Creatinine 0.8, Estimat Glomerular Filtration Rate > 60, Glucose Level 149#H, Calcium Level 9.1, Total Bilirubin 0.3, Aspartate Amino Transf (AST/SGOT) 51H, Alanine Aminotransferase ( ALT/SGPT) 98H, Alkaline Phosphatase 254H, Total Protein 7.0, Albumin 2.4L, Globulin 4.6, Albumin/Globulin Ratio 0.5L, Hemoglobin A1c 9.8H, Phosphorus Level 4.0, Magnesium Level 1.7L Current Medications Medications (Trade) Dose Ordered Sig/Ghazal Route PRN Reason Start Time Stop Time Status Last Admin Dose Admin Acetaminophen (Tylenol) 650 mg Q4H PRN ORAL fever 08/27/17 15:00 09/26/17 14:59 Albuterol/ Ipratropium (Albuterol/ Ipratropium) 3 ml Q4H PRN HHN Shortness of Breath 08/27/17 15:00 09/01/17 14:59 Cefepime HCl 2 gm/ Dextrose 55 ml @ 110 mls/hr Q12HR@0600,1800 IV 08/27/17 18:00 09/03/17 17:59 08/28/17 06:01 Dextrose (Dextrose 50%) STAT PRN IV Hypoglycemia 08/27/17 15:00 09/26/17 14:59 Heparin Sodium (Porcine) (Heparin 5000 units/ml) 5,000 units EVERY 12 HOURS SUBQ 08/27/17 21:00 09/26/17 20:59 08/28/17 08:34 Insulin Aspart (NovoLOG) BEFORE MEALS AND HS SUBQ 08/27/17 16:30 09/26/17 16:29 08/28/17 06:02 Metformin HCl (Glucophage) 500 mg BEFORE LUNCH ORAL 08/28/17 11:30 09/27/17 11:29 Metformin HCl (Glucophage) 1,000 mg BIAC ORAL 08/28/17 06:30 09/27/17 06:29 08/28/17 06:01 Morphine Sulfate (Morphine Sulfate) 2 mg Q4H PRN IVP Moderate Pain (Pain Scale 4-6) 08/27/17 15:00 09/03/17 14:59 08/28/17 08:05 Ondansetron HCl (Zofran) 4 mg Q6H PRN IVP Nausea & Vomiting 08/27/17 15:00 09/26/17 14:59 Polyethylene Glycol (Miralax) 17 gm DAILYPRN PRN ORAL Constipation 08/27/17 15:00 09/26/17 14:59 Sodium Chloride 1,000 ml @ 100 mls/hr Q10H IV 08/27/17 21:45 09/26/17 21:44 08/28/17 08:31 Temazepam (Restoril) 15 mg HSPRN PRN ORAL Insomnia 08/27/17 15:00 09/03/17 14:59 Vancomycin HCl (Vanco rx to dose) 1 ea DAILY PRN MISC . 08/27/17 15:45 09/26/17 15:44 Vancomycin HCl/ Dextrose 250 ml @ 166.667 mls/hr Q12HR IVPB 08/27/17 21:00 09/01/17 20:59 08/28/17 08:32 [place] (Amara Horta NP Aug 28, 2017 09:30
[2017-08-28 10:24] LABS: BASOPHILS % (AUTO) 1.2 % (0.0-2.0); EOSINOPHILS % (AUTO) 3.3 % (0.0-3.0); LYMPHOCYTES % (AUTO) 29.6 % (20.0-45.0); MEAN CORPUSCULAR HEMOGLOBIN 31.1 PG (27.0-31.0); MEAN CORPUSCULAR HGB CONC 33.6 G/DL (32.0-36.0); MEAN CORPUSCULAR VOLUME 92 FL (80-99); MEAN PLATELET VOLUME 8.5 FL (6.5-10.1); MONOCYTES % (AUTO) 12.7 % (1.0-10.0); NEUTROPHILS % (AUTO) 53.3 % (45.0-75.0); PLATELET COUNT 273 K/UL (150-450); RED BLOOD COUNT 4.73 M/UL (4.70-6.10); RED CELL DISTRIBUTION WIDTH 10.6 % (11.6-14.8); WHITE BLOOD COUNT 5.1 K/UL (4.8-10.8)
[2017-08-28] MEDS: Levemir Flexpen SUBQ SCH (11:36)
--- NOTE | 2017-08-28 15:46 | Consultation ---
Consult Note Consult Note ID CONSULT: Sabrina# [id number] Assessment/Plan ASSESSMENT: 42 y/o male with: // Left 3rd toe ulcer / gangrene / abscess / osteomyelitis - SP I&D 08/27 - WCx GNR - XR: Evidence of destruction of the terminal tuft of the third distal phalanx, worrisome process myelitis. Overlying soft tissue defect likely relates to stated clinical history of gangrene. Possible gas bubbles are noted, may indicate open wound or infection with gas-forming organism. Equivocal soft tissue and bony abnormality of the terminal tuft of the second digit. Tissue loss and osteomyelitis in this area not completely excludable. Consider MRI for better characterization - elevated ESR // Left foot cellulitis // Elevated LFTs r/o hepatobiliary disease, asymptomatic // Afebrile without leukocytosis // Uncontrolled DM2 - HbA1c 9.8% // NKDA // Full Code PLAN: - continue IV vancomycin, cefepime d# 2, add PO flagyl d# 1 anaerobic coverage. Will need 6 weeks IV ABX if not amputated - check hepatitis panel, abdo US - f/u cultures - weekly CBC, CMP, ESR, CRP while on IV ABX - wound care, podiatry f/u Thanks! Will follow SERGIO LOPEZ Aug 28, 2017 15:46
[2017-08-28] MEDS: metroNIDAZOLE 500mg tab ORAL SCH ×2 (16:00→23:59)
--- NOTE | 2017-08-28 16:06 | Internal Med Progress Note ---
Subjective Physician Name Zachariah Solomon Attending Physician Zachariah Solomon MD Current Medications Medications (Trade) Dose Ordered Sig/Ghazal Route PRN Reason Start Time Stop Time Status Last Admin Dose Admin Acetaminophen (Tylenol) 650 mg Q4H PRN ORAL fever 08/27/17 15:00 09/26/17 14:59 Albuterol/ Ipratropium (Albuterol/ Ipratropium) 3 ml Q4H PRN HHN Shortness of Breath 08/27/17 15:00 09/01/17 14:59 Cefepime HCl 2 gm/ Dextrose 55 ml @ 110 mls/hr Q12HR@0600,1800 IV 08/27/17 18:00 09/03/17 17:59 08/28/17 06:01 Dextrose (Dextrose 50%) STAT PRN IV Hypoglycemia 08/27/17 15:00 09/26/17 14:59 Heparin Sodium (Porcine) (Heparin 5000 units/ml) 5,000 units EVERY 12 HOURS SUBQ 08/27/17 21:00 09/26/17 20:59 08/28/17 08:34 Insulin Aspart (NovoLOG) BEFORE MEALS AND HS SUBQ 08/27/17 16:30 09/26/17 16:29 08/28/17 11:31 Insulin Detemir (Levemir) 7 units DAILY SUBQ 08/28/17 11:00 09/27/17 10:59 08/28/17 11:36 Metformin HCl (Glucophage) 500 mg BEFORE LUNCH ORAL 08/28/17 11:30 09/27/17 11:29 08/28/17 11:30 Metformin HCl (Glucophage) 1,000 mg BIAC ORAL 08/28/17 06:30 09/27/17 06:29 08/28/17 06:01 Metronidazole (Flagyl) 500 mg Q8HR ORAL 08/28/17 16:00 09/04/17 15:59 Morphine Sulfate (Morphine Sulfate) 2 mg Q4H PRN IVP Moderate Pain (Pain Scale 4-6) 08/27/17 15:00 09/03/17 14:59 08/28/17 08:05 Ondansetron HCl (Zofran) 4 mg Q6H PRN IVP Nausea & Vomiting 08/27/17 15:00 09/26/17 14:59 Polyethylene Glycol (Miralax) 17 gm DAILYPRN PRN ORAL Constipation 08/27/17 15:00 09/26/17 14:59 Povidone Iodine (Betadine Susan) 1 applic BID TOPIC 08/28/17 15:00 09/27/17 14:59 Sodium Chloride 1,000 ml @ 100 mls/hr Q10H IV 08/27/17 21:45 09/26/17 21:44 08/28/17 08:31 Temazepam (Restoril) 15 mg HSPRN PRN ORAL Insomnia 08/27/17 15:00 09/03/17 14:59 Vancomycin HCl (Vanco rx to dose) 1 ea DAILY PRN MISC . 08/27/17 15:45 09/26/17 15:44 Vancomycin HCl/ Dextrose 250 ml @ 166.667 mls/hr Q12HR IVPB 08/27/17 21:00 09/01/17 20:59 08/28/17 08:32 Allergies: Coded Allergies: No Known Allergies (Unverified , 10/08/16) Subjective awake, alert, responsive, VAD, No CP or SOB. Objective Last Vital Signs Date Time Temp Pulse Resp B/P (MAP) Pulse Ox O2 Delivery O2 Flow Rate FiO2 08/28/17 08:00 97.9 82 18 124/76 100 Room Air Laboratory Tests Test 08/28/17 05:30 08/28/17 10:00 White Blood Count 5.2 K/UL (4.8-10.8) 5.1 K/UL (4.8-10.8) Red Blood Count 4.96 M/UL (4.70-6.10) 4.73 M/UL (4.70-6.10) Hemoglobin 15.4 G/DL (14.2-18.0) 14.7 G/DL (14.2-18.0) Hematocrit 45.4 % (42.0-52.0) 43.7 % (42.0-52.0) Mean Corpuscular Volume 92 FL (80-99) 92 FL (80-99) Mean Corpuscular Hemoglobin 31.0 PG (27.0-31.0) 31.1 PG (27.0-31.0) H Mean Corpuscular Hemoglobin Concent 33.9 G/DL (32.0-36.0) 33.6 G/DL (32.0-36.0) Red Cell Distribution Width 10.6 % (11.6-14.8) L 10.6 % (11.6-14.8) L Platelet Count 286 K/UL (150-450) 273 K/UL (150-450) Mean Platelet Volume 8.5 FL (6.5-10.1) 8.5 FL (6.5-10.1) Neutrophils (%) (Auto) 45.1 % (45.0-75.0) 53.3 % (45.0-75.0) Lymphocytes (%) (Auto) 35.2 % (20.0-45.0) 29.6 % (20.0-45.0) Monocytes (%) (Auto) 14.7 % (1.0-10.0) H 12.7 % (1.0-10.0) H Eosinophils (%) (Auto) 3.8 % (0.0-3.0) H 3.3 % (0.0-3.0) H Basophils (%) (Auto) 1.2 % (0.0-2.0) 1.2 % (0.0-2.0) Sodium Level 139 MMOL/L (136-145) Potassium Level 4.3 MMOL/L (3.5-5.1) Chloride Level 103 MMOL/L (98-107) Carbon Dioxide Level 29 MMOL/L (21-32) Anion Gap 7 mmol/L (5-15) Blood Urea Nitrogen 9 mg/dL (7-18) Creatinine 0.8 MG/DL (0.55-1.30) Estimat Glomerular Filtration Rate > 60 mL/min (>60) Glucose Level 149 MG/DL (74-106) #H Hemoglobin A1c 9.8 % (4.3-6.0) H Calcium Level 9.1 MG/DL (8.5-10.1) Phosphorus Level 4.0 MG/DL (2.5-4.9) Magnesium Level 1.7 MG/DL (1.8-2.4) L Total Bilirubin 0.3 MG/DL (0.2-1.0) Aspartate Amino Transf (AST/SGOT) 51 U/L (15-37) H Alanine Aminotransferase (ALT/SGPT) 98 U/L (12-78) H Alkaline Phosphatase 254 U/L (46-116) H Total Protein 7.0 G/DL (6.4-8.2) Albumin 2.4 G/DL (3.4-5.0) L Globulin 4.6 g/dL Albumin/Globulin Ratio 0.5 (1.0-2.7) L Lactic Acid Level 1.20 mmol/L (0.66-2.22) Microbiology Date/Time Source Procedure Growth Status 08/27/17 16:00 Wound Gram Stain - Final Resulted 08/27/17 16:00 Wound Wound Culture - Preliminary Resulted 08/27/17 12:35 Toe Left Second Gram Stain - Final Resulted 08/27/17 12:35 Toe Left Second Wound Culture - Preliminary Resulted Objective General: No acute distress, awake and alert HEENT: NCAT, sclera anicteric, PERRL, EOMI. Neck: Supple, no significant jugular venous distention, Lungs: Good inspiratory effort, no accessory muscle use, clear to auscultation bilaterally, no Wheeze or Rales. Heart: Regular rate and rhythm, normal S1/S2, no murmurs/gallops Abdomen: soft, nontender, nondistended. Normoactive bowel sounds. / Rectal: Refused and deferred. Extremities: No Cyanosis , clubbing or edema. Neuro: A&O x 3, Able to move all extremities, Left foot dressing. Skin: warm, no rashes or lesions Psych: Normal mood and affect Assessment/Plan Assessment/Plan IMPRESSION: 1. Uncontrolled diabetes type 2. 2. Gas gangrene of the left second toe. 3. Proteinuria. 4. Hyponatremia. 5. Abnormal LFT. PLAN: in Med/Surg. Dr. Vuong's from Podiatry monitor cultures. Broad-spectrum antibiotic with vancomycin, Flagyl, and Cefepime Accu-Chek with sliding scale. IV hydration Monitor Labs Code status is Full Code. DVT prophylaxis at low risk. Zachariah Solomon MD Aug 28, 2017 16:06
[2017-08-28] MEDS: Betadine 4oz Bottle TOPIC SCH ×2 (16:57→18:00)
[2017-08-28 19:32] VITALS: BP 140/87
[2017-08-28] MEDS ORDERED: NS 275ml ONE (21:04)
[2017-08-28] MEDS ORDERED: Tubing IV Secondary IV ONE (21:04)
[2017-08-29] VITALS: BP_SYST 135; BP_SYST 157; BP_DIAS 91; BP_DIAS 95
--- NOTE | 2017-08-29 03:46 | Consultation ---
DATE OF CONSULTATION: 08/28/2017 INFECTIOUS DISEASES CONSULTATION CONSULTING PHYSICIAN: Espinoza Tripp M.D. REQUESTING PHYSICIAN: Zachariah Solomon M.D. REASON FOR CONSULTATION: Osteomyelitis. HISTORY OF PRESENT ILLNESS: This is a 42-year-old diabetic male admitted on 08/27/2017 with a left foot infection. He has evidence of gangrene of his left third toe and x-ray is concerning for abscess and osteomyelitis as well. He has been seen by the Podiatry, who performed a bedside incision and drainage with pustular output. A Gram stain is showing gram-negative rods. He is afebrile without leukocytosis and started on empiric IV vancomycin and cefepime. ID now consulted to assist in management. PAST MEDICAL HISTORY: Uncontrolled diabetes. Hemoglobin A1c of 9.8%. PAST SURGICAL HISTORY: 1. Cholecystectomy. 2. Incision and drainage of his left third toe on 08/27/2017. ALLERGIES: No known drug allergies. MEDICATIONS: 1. Vancomycin. 2. Cefepime. 3. Metformin. 4. Insulin. FAMILY HISTORY: Reviewed and noncontributory. SOCIAL HISTORY: The patient drinks alcohol socially. He denies tobacco or illicit drug abuse. REVIEW OF SYSTEMS: As per history of present illness. Ten systems reviewed. All pertinent positives and negatives noted. PHYSICAL EXAMINATION: VITAL SIGNS: Maximum temperature 98.2, blood pressure 124/76, heart rate in 80s, respiratory rate 18, and saturating 100% on room air. GENERAL: No apparent distress. Nontoxic appearing. CARDIOVASCULAR: Regular rate and rhythm. No murmurs. PULMONARY: Clear to auscultation bilaterally. ABDOMEN: Bowel sounds are present. Soft, nondistended, and nontender. EXTREMITIES: Left foot is bandaged. Photographic evidence reviewed. NEUROLOGICAL: Alert and oriented x3, nonfocal. SKIN: No rash. LABORATORY DATA: White blood cell count 5.1, hemoglobin 14.7, and platelets 273,000. Sodium 139, potassium 4.3, chloride 103, bicarbonate 29, BUN 7, creatinine 0.9, and glucose 149. ESR 27. Hemoglobin A1c 9.8%. AST 51, ALT 98, and alkaline phosphatase 254. Total bilirubin 0.3. Albumin 2.4. Urinalysis is negative. MICROBIOLOGY: On 08/27/2017, wound culture, gram-negative rods. IMAGIN. On 08/28/2017, bilateral lower extremity Doppler ultrasound negative for DVT. 2. On 08/27/2017, chest x-ray no acute findings. 3. On 08/27/2017, left foot x-ray with gas bubbles and probable osteomyelitis. Please refer to full report for full details. ASSESSMENT: 1. Left third toe gangrene/abscess/osteomyelitis, status post incision and drainage on 08/27/2017. Wound cultures growing gram-negative rods. ESR is elevated. 2. Left foot cellulitis. 3. Elevated liver function tests, rule out hepatobiliary disease, asymptomatic at this time. 4. Afebrile without leukocytosis. 5. Uncontrolled diabetes type 2 with hemoglobin A1c at 9.8%. 6. No known drug allergies. 7. Full Code. PLAN: 1. Continue IV vancomycin and cefepime, day #2 and add oral Flagyl day #1, anaerobic coverage. He will need six weeks of IV antibiotics if toe is not amputated. 2. Check hepatitis panel and abdominal ultrasound. 3. Follow up cultures. 4. Weekly CBC, CMP, ESR, and CRP while on IV antibiotics. 5. Wound care. Thank you. We will follow. Espinoza Tripp M.D. DR: LAMAR/josue JOB#: [id number] CC: Zachariah Solomon M.D.; Fax#: [phone] Gris Roy M.D; FAX#: [phone]
[2017-08-29 04:00] VITALS: BP 151/92
[2017-08-29] MEDS: Cefepime HCl 2 GM in D5W 55 ML IV SCH ×2 (05:08→17:52)
[2017-08-29] MEDS ORDERED: Vancomycin 1gm inj IVPB ONE (05:25)
[2017-08-29] MEDS: metroNIDAZOLE 500mg tab ORAL SCH ×3 (05:50→21:36)
[2017-08-29] MEDS: metFORMIN 500mg tab ORAL SCH ×3 (05:54→16:37)
[2017-08-29] MEDS ORDERED: Vancomycin 1gm in Dextrose 275ml IVPB SCH (06:00)
[2017-08-29] MEDS: NovoLOG Insulin Flexpen SUBQ SCH ×5 (06:01→21:00)
[2017-08-29 07:23] LABS: BASOPHILS % (AUTO) 1.2 % (0.0-2.0); EOSINOPHILS % (AUTO) 3.4 % (0.0-3.0); LYMPHOCYTES % (AUTO) 29.6 % (20.0-45.0); MEAN CORPUSCULAR HEMOGLOBIN 32.4 PG (27.0-31.0); MEAN CORPUSCULAR HGB CONC 35.6 G/DL (32.0-36.0); MEAN CORPUSCULAR VOLUME 91 FL (80-99); NEUTROPHILS % (AUTO) 55.8 % (45.0-75.0); PLATELET COUNT 280 K/UL (150-450); RED CELL DISTRIBUTION WIDTH 10.4 % (11.6-14.8); WHITE BLOOD COUNT 4.6 K/UL (4.8-10.8)
[2017-08-29 07:43] LABS: ALANINE AMINOTRANSFERASE 68 U/L (12-78); ALBUMIN/GLOBULIN RATIO 0.5 (1.0-2.7); ANION GAP 5 mmol/L (5-15); ASPARTATE AMINO TRANSFERASE 29 U/L (15-37); CALCIUM 9.4 MG/DL (8.5-10.1); CARBON DIOXIDE 29 MMOL/L (21-32); CHLORIDE 103 MMOL/L (98-107); CREATININE 0.6 MG/DL (0.55-1.30); GLOMERULAR FILTRATION RATE > 60 mL/min (>60); POTASSIUM 3.8 MMOL/L (3.5-5.1); SODIUM 137 MMOL/L (136-145); TOTAL PROTEIN 6.8 G/DL (6.4-8.2)
[2017-08-29 08:00] VITALS: BP 122/78
[2017-08-29] MEDS: Levemir Flexpen SUBQ SCH (08:50)
[2017-08-29] MEDS: Heparin 5000 units/ml inj SUBQ SCH ×2 (09:00→20:31)
[2017-08-29] MEDS: Betadine 4oz Bottle TOPIC SCH ×2 (09:01→18:00)
[2017-08-29] MEDS ORDERED: D5W 275ml ONE (10:35)
[2017-08-29] MEDS: Vancomycin 1gm in Dextrose 275ml IVPB SCH ×3 (11:47→23:49)
--- NOTE | 2017-08-29 11:56 | Infectious Diseases Prog Note ---
Assessment/Plan Assessment/Plan ASSESSMENT: 42 y/o male with: // Left 3rd toe ulcer / gangrene / abscess / osteomyelitis - SP I&D 08/27 - WCx ( stain : GNR ) + strp x 3 - XR: Evidence of destruction of the terminal tuft of the third distal phalanx, worrisome process myelitis. Overlying soft tissue defect likely relates to stated clinical history of gangrene. Possible gas bubbles are noted, may indicate open wound or infection with gas-forming organism. Equivocal soft tissue and bony abnormality of the terminal tuft of the second digit. Tissue loss and osteomyelitis in this area not completely excludable. Consider MRI for better characterization - elevated ESR // Left foot cellulitis // Elevated LFTs improving hepatitis panel: neg // Afebrile without leukocytosis // Uncontrolled DM2 - HbA1c 9.8% // NKDA // Full Code PLAN: - continue IV vancomycin, cefepimem d# 3, and PO flagyl d# 2. Will need 6 weeks IV ABX if not amputated - check abdo US - f/u cultures - weekly CBC, CMP, ESR, CRP while on IV ABX Subjective Constitutional: Denies: no symptoms, fever, chills, fatigue, anorexia, drenching sweats, other Allergies: Coded Allergies: No Known Allergies (Unverified , 10/08/16) Objective Vital Signs Last 24 Hour Vital Signs Date Time Temp Pulse Resp B/P (MAP) Pulse Ox O2 Delivery O2 Flow Rate FiO2 08/29/17 08:00 97.3 78 18 122/78 98 Room Air 08/29/17 07:00 84 18 Room Air 21 08/29/17 04:00 97.7 80 20 151/92 98 Room Air 08/29/17 00:00 97.3 85 20 157/91 98 Room Air 08/28/17 19:32 97.7 87 20 140/87 97 Room Air Height (Feet): 5 Height (Inches): 6.00 Weight (Pounds): 165 HEENT: anicteric Respiratory/Chest: no accessory muscle use Cardiovascular: no gallop/murmur Abdomen: no organomegaly Microbiology Date/Time Source Procedure Growth Status 08/27/17 11:54 Blood Blood Culture - Preliminary NO GROWTH AFTER 24 HOURS Resulted 08/27/17 11:54 Blood Blood Culture - Preliminary NO GROWTH AFTER 24 HOURS Resulted 08/27/17 16:00 Wound Gram Stain - Final Resulted 08/27/17 16:00 Wound Culture - Preliminary Strep Species, Gamma-Hemolytic Strep Species, Beta Hemolytic Streptococcus Viridans Resulted 08/27/17 13:40 Nasal Nares MRSA Culture - Final NO METHICILLIN RESISTANT STAPH AUREUS... Complete 08/27/17 12:35 Toe Left Second Gram Stain - Final Resulted 08/27/17 12:35 Wound Culture - Preliminary Strep Species, Gamma-Hemolytic Resulted Laboratory Tests Test 08/28/17 20:25 08/29/17 04:50 Vancomycin Level Trough 4.7 ug/mL (5.0-12.0) L Hepatitis A IgM Antibody Negative (Negative) Hepatitis B Surface Antigen Negative (Negative) Hepatitis B Core IgM Antibody Negative (Negative) Hepatitis C Antibody 0.2 s/co ratio (0.0-0.9) White Blood Count 4.6 K/UL (4.8-10.8) L Red Blood Count 4.70 M/UL (4.70-6.10) Hemoglobin 15.2 G/DL (14.2-18.0) Hematocrit 42.7 % (42.0-52.0) Mean Corpuscular Volume 91 FL (80-99) Mean Corpuscular Hemoglobin 32.4 PG (27.0-31.0) H Mean Corpuscular Hemoglobin Concent 35.6 G/DL (32.0-36.0) Red Cell Distribution Width 10.4 % (11.6-14.8) L Platelet Count 280 K/UL (150-450) Mean Platelet Volume 8.0 FL (6.5-10.1) Neutrophils (%) (Auto) 55.8 % (45.0-75.0) Lymphocytes (%) (Auto) 29.6 % (20.0-45.0) Monocytes (%) (Auto) 10.0 % (1.0-10.0) Eosinophils (%) (Auto) 3.4 % (0.0-3.0) H Basophils (%) (Auto) 1.2 % (0.0-2.0) Sodium Level 137 MMOL/L (136-145) Potassium Level 3.8 MMOL/L (3.5-5.1) Chloride Level 103 MMOL/L (98-107) Carbon Dioxide Level 29 MMOL/L (21-32) Anion Gap 5 mmol/L (5-15) Blood Urea Nitrogen 7 mg/dL (7-18) Creatinine 0.6 MG/DL (0.55-1.30) Estimat Glomerular Filtration Rate > 60 mL/min (>60) Glucose Level 199 MG/DL (74-106) H Calcium Level 9.4 MG/DL (8.5-10.1) Total Bilirubin 0.3 MG/DL (0.2-1.0) Aspartate Amino Transf (AST/SGOT) 29 U/L (15-37) Alanine Aminotransferase (ALT/SGPT) 68 U/L (12-78) Alkaline Phosphatase 210 U/L (46-116) H Total Protein 6.8 G/DL (6.4-8.2) Albumin 2.4 G/DL (3.4-5.0) L Globulin 4.4 g/dL Albumin/Globulin Ratio 0.5 (1.0-2.7) L Current Medications Medications (Trade) Dose Ordered Sig/Ghazal Route PRN Reason Start Time Stop Time Status Last Admin Dose Admin Acetaminophen (Tylenol) 650 mg Q4H PRN ORAL fever 08/27/17 15:00 09/26/17 14:59 Albuterol/ Ipratropium (Albuterol/ Ipratropium) 3 ml Q4H PRN HHN Shortness of Breath 08/27/17 15:00 09/01/17 14:59 Cefepime HCl 2 gm/ Dextrose 55 ml @ 110 mls/hr Q12HR@0600,1800 IV 08/27/17 18:00 09/03/17 17:59 08/29/17 05:08 Dextrose (Dextrose 50%) STAT PRN IV Hypoglycemia 08/27/17 15:00 09/26/17 14:59 Heparin Sodium (Porcine) (Heparin 5000 units/ml) 5,000 units EVERY 12 HOURS SUBQ 08/27/17 21:00 09/26/17 20:59 08/29/17 09:00 Insulin Aspart (NovoLOG) BEFORE MEALS AND HS SUBQ 08/27/17 16:30 09/26/17 16:29 08/29/17 11:41 Insulin Detemir (Levemir) 7 units DAILY SUBQ 08/28/17 11:00 09/27/17 10:59 08/28/17 11:36 Metformin HCl (Glucophage) 500 mg BEFORE LUNCH ORAL 08/28/17 11:30 09/27/17 11:29 08/29/17 11:41 Metformin HCl (Glucophage) 1,000 mg BIAC ORAL 08/28/17 06:30 09/27/17 06:29 08/29/17 05:54 Metronidazole (Flagyl) 500 mg Q8HR ORAL 08/28/17 16:00 09/04/17 15:59 08/29/17 05:50 Morphine Sulfate (Morphine Sulfate) 2 mg Q4H PRN IVP Moderate Pain (Pain Scale 4-6) 08/27/17 15:00 09/03/17 14:59 08/28/17 21:50 Ondansetron HCl (Zofran) 4 mg Q6H PRN IVP Nausea & Vomiting 08/27/17 15:00 09/26/17 14:59 Polyethylene Glycol (Miralax) 17 gm DAILYPRN PRN ORAL Constipation 08/27/17 15:00 09/26/17 14:59 Povidone Iodine (Betadine Susan) 1 applic BID TOPIC 08/28/17 15:00 09/27/17 14:59 08/29/17 09:01 Sodium Chloride 1,000 ml @ 100 mls/hr Q10H IV 08/27/17 21:45 09/26/17 21:44 08/29/17 03:49 Temazepam (Restoril) 15 mg HSPRN PRN ORAL Insomnia 08/27/17 15:00 09/03/17 14:59 Vancomycin HCl (Vanco rx to dose) 1 ea DAILY PRN MISC . 08/27/17 15:45 09/26/17 15:44 Vancomycin HCl 1 gm/Dextrose 275 ml @ 183.708 mls/hr Q6HR IVPB 08/29/17 12:00 09/03/17 11:59 08/29/17 11:47 KAMRAN ROMERO M.D. Aug 29, 2017 11:56
[2017-08-29 12:00] VITALS: BP 120/74
[2017-08-29] MEDS: Morphine Sulfate 2mg/ml Inj IVP PRN ×2 (12:27→17:53)
--- NOTE | 2017-08-29 12:37 | Podiatric Progress Note ---
Assessment/Plan Patient Edd Aldrich is a 42 year old male who was admitted on Aug 27, 2017 at 12:07 with Problems: Assessment/Plan A/ 1) Gas left 3rd toe - resolved 2) OM left 3rd toe 3) Cellulitis of left foot - resolving 4) DM 5) Diabetic Neuropathy P/ 1) Cont wound care. Condition is improving but will likely need serial debridements. Advised patient he may lose toe but will attempt to salvage. Can perform wound care as outpt. 2) Cont IV abx, recommend retirement abx 3) Will monitor Subjective Allergies: Coded Allergies: No Known Allergies (Unverified , 10/08/16) Subjective Patient states he feels much better. He himself has noticed an improvement in the overall appearance of his left foot. Swelling in his left toe has gone down. Objective Exam Last 24 Hour Vital Signs Date Time Temp Pulse Resp B/P (MAP) Pulse Ox O2 Delivery O2 Flow Rate FiO2 08/29/17 12:00 97.8 78 18 120/74 99 Room Air 08/29/17 08:00 97.3 78 18 122/78 98 Room Air 08/29/17 07:00 84 18 Room Air 21 08/29/17 04:00 97.7 80 20 151/92 98 Room Air 08/29/17 00:00 97.3 85 20 157/91 98 Room Air 08/28/17 19:32 97.7 87 20 140/87 97 Room Air Laboratory Tests Test 08/28/17 20:25 08/29/17 04:50 Vancomycin Level Trough 4.7 ug/mL (5.0-12.0) L Hepatitis A IgM Antibody Negative (Negative) Hepatitis B Surface Antigen Negative (Negative) Hepatitis B Core IgM Antibody Negative (Negative) Hepatitis C Antibody 0.2 s/co ratio (0.0-0.9) White Blood Count 4.6 K/UL (4.8-10.8) L Red Blood Count 4.70 M/UL (4.70-6.10) Hemoglobin 15.2 G/DL (14.2-18.0) Hematocrit 42.7 % (42.0-52.0) Mean Corpuscular Volume 91 FL (80-99) Mean Corpuscular Hemoglobin 32.4 PG (27.0-31.0) H Mean Corpuscular Hemoglobin Concent 35.6 G/DL (32.0-36.0) Red Cell Distribution Width 10.4 % (11.6-14.8) L Platelet Count 280 K/UL (150-450) Mean Platelet Volume 8.0 FL (6.5-10.1) Neutrophils (%) (Auto) 55.8 % (45.0-75.0) Lymphocytes (%) (Auto) 29.6 % (20.0-45.0) Monocytes (%) (Auto) 10.0 % (1.0-10.0) Eosinophils (%) (Auto) 3.4 % (0.0-3.0) H Basophils (%) (Auto) 1.2 % (0.0-2.0) Sodium Level 137 MMOL/L (136-145) Potassium Level 3.8 MMOL/L (3.5-5.1) Chloride Level 103 MMOL/L (98-107) Carbon Dioxide Level 29 MMOL/L (21-32) Anion Gap 5 mmol/L (5-15) Blood Urea Nitrogen 7 mg/dL (7-18) Creatinine 0.6 MG/DL (0.55-1.30) Estimat Glomerular Filtration Rate > 60 mL/min (>60) Glucose Level 199 MG/DL (74-106) H Calcium Level 9.4 MG/DL (8.5-10.1) Total Bilirubin 0.3 MG/DL (0.2-1.0) Aspartate Amino Transf (AST/SGOT) 29 U/L (15-37) Alanine Aminotransferase (ALT/SGPT) 68 U/L (12-78) Alkaline Phosphatase 210 U/L (46-116) H Total Protein 6.8 G/DL (6.4-8.2) Albumin 2.4 G/DL (3.4-5.0) L Globulin 4.4 g/dL Albumin/Globulin Ratio 0.5 (1.0-2.7) L Microbiology Date/Time Source Procedure Growth Status 08/27/17 11:54 Blood Blood Culture - Preliminary NO GROWTH AFTER 24 HOURS Resulted 08/27/17 16:00 Wound Gram Stain - Final Resulted 08/27/17 16:00 Wound Culture - Preliminary Strep Species, Gamma-Hemolytic Strep Species, Beta Hemolytic Streptococcus Viridans Resulted 08/27/17 13:40 Nasal Nares MRSA Culture - Final NO METHICILLIN RESISTANT STAPH AUREUS... Complete 08/27/17 12:35 Toe Left Second Gram Stain - Final Resulted 08/27/17 12:35 Wound Culture - Preliminary Strep Species, Gamma-Hemolytic Resulted Dermatological Dermatological Narrative Left 3rd toe edema has subsided. Erythema of left foot resolved Bone is exposed and distal aspect of toe is necrotic. No purulence or malodor noted. Maykel Vuong DPM Aug 29, 2017 12:37
--- NOTE | 2017-08-29 14:45 | Pulmonology Progress Note ---
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&D of L 3 rd toe wound wound care as per well drill operator recommendations empiric abx fup with cx blood cx prel negative , wound cx + Strep ID follows X ray left foot noted( likely gangrene,suspicious for osteo) MRI L foot - per ID discretion ID recommended 6 weeks Rx for presumptive OM , will hold on MRI for now Venous Duplex BLE pain management BS management, HgA1c -9.8, not at goal , started on Levemir, continue SS of insulin, Metformin - BS better DVT prophylaxis Bowel regimen case discussed and evaluated by supervising physician Subjective Allergies: Coded Allergies: No Known Allergies (Unverified , 10/08/16) Subjective denies chest pain, SOB pain Left foot, intermittently relieved with analgesics BS better Objective Last 24 Hour Vital Signs Date Time Temp Pulse Resp B/P (MAP) Pulse Ox O2 Delivery O2 Flow Rate FiO2 08/29/17 12:00 97.8 78 18 120/74 99 Room Air 08/29/17 08:00 97.3 78 18 122/78 98 Room Air 08/29/17 07:00 84 18 Room Air 21 08/29/17 04:00 97.7 80 20 151/92 98 Room Air 08/29/17 00:00 97.3 85 20 157/91 98 Room Air 08/28/17 19:32 97.7 87 20 140/87 97 Room Air Objective General Appearance: WD/WN, no acute distress HEENT: normocephalic, atraumatic, anicteric, mucous membranes moist Respiratory/Chest: lungs clear, no respiratory distress, no accessory muscle use Cardiovascular: normal rate, regular rhythm, no JVD Abdomen: normal bowel sounds, soft, non tender, non distended Extremities: other - Left foot with dressing C/D/I Neurologic/Psychiatric: no motor/sensory deficits, alert, oriented x 3, responsive Microbiology Date/Time Source Procedure Growth Status 08/27/17 11:54 Blood Blood Culture - Preliminary NO GROWTH AFTER 24 HOURS Resulted 08/27/17 11:54 Blood Blood Culture - Preliminary NO GROWTH AFTER 24 HOURS Resulted 08/27/17 16:00 Wound Gram Stain - Final Resulted 08/27/17 16:00 Wound Culture - Preliminary Strep Species, Gamma-Hemolytic Strep Species, Beta Hemolytic Streptococcus Viridans Resulted 08/27/17 13:40 Nasal Nares MRSA Culture - Final NO METHICILLIN RESISTANT STAPH AUREUS... Complete 08/27/17 12:35 Toe Left Second Gram Stain - Final Resulted 08/27/17 12:35 Wound Culture - Preliminary Strep Species, Gamma-Hemolytic Resulted Laboratory Tests 08/28/17 20:25: Vancomycin Level Trough 4.7L, Hepatitis A IgM Antibody Negative, Hepatitis B Surface Antigen Negative, Hepatitis B Core IgM Antibody Negative, Hepatitis C Antibody 0.2 08/29/17 04:50: White Blood Count 4.6L, Red Blood Count 4.70, Hemoglobin 15.2, Hematocrit 42.7, Mean Corpuscular Volume 91, Mean Corpuscular Hemoglobin 32.4H, Mean Corpuscular Hemoglobin Concent 35.6, Red Cell Distribution Width 10.4L, Platelet Count 280, Mean Platelet Volume 8.0, Neutrophils (%) (Auto) 55.8, Lymphocytes (%) (Auto) 29.6, Monocytes (%) (Auto) 10.0, Eosinophils (%) (Auto) 3.4H, Basophils (%) ( Auto) 1.2, Sodium Level 137, Potassium Level 3.8, Chloride Level 103, Carbon Dioxide Level 29, Anion Gap 5, Blood Urea Nitrogen 7, Creatinine 0.6, Estimat Glomerular Filtration Rate > 60, Glucose Level 199H, Calcium Level 9.4, Total Bilirubin 0.3, Aspartate Amino Transf (AST/SGOT) 29, Alanine Aminotransferase ( ALT/SGPT) 68, Alkaline Phosphatase 210H, Total Protein 6.8, Albumin 2.4L, Globulin 4.4, Albumin/Globulin Ratio 0.5L Current Medications Medications (Trade) Dose Ordered Sig/Ghazal Route PRN Reason Start Time Stop Time Status Last Admin Dose Admin Acetaminophen (Tylenol) 650 mg Q4H PRN ORAL fever 08/27/17 15:00 09/26/17 14:59 Albuterol/ Ipratropium (Albuterol/ Ipratropium) 3 ml Q4H PRN HHN Shortness of Breath 08/27/17 15:00 09/01/17 14:59 Cefepime HCl 2 gm/ Dextrose 55 ml @ 110 mls/hr Q12HR@0600,1800 IV 08/27/17 18:00 09/03/17 17:59 08/29/17 05:08 Dextrose (Dextrose 50%) STAT PRN IV Hypoglycemia 08/27/17 15:00 09/26/17 14:59 Heparin Sodium (Porcine) (Heparin 5000 units/ml) 5,000 units EVERY 12 HOURS SUBQ 08/27/17 21:00 09/26/17 20:59 08/29/17 09:00 Insulin Aspart (NovoLOG) BEFORE MEALS AND HS SUBQ 08/27/17 16:30 09/26/17 16:29 08/29/17 11:41 Insulin Detemir (Levemir) 7 units DAILY SUBQ 08/28/17 11:00 09/27/17 10:59 08/28/17 11:36 Metformin HCl (Glucophage) 500 mg BEFORE LUNCH ORAL 08/28/17 11:30 09/27/17 11:29 08/29/17 11:41 Metformin HCl (Glucophage) 1,000 mg BIAC ORAL 08/28/17 06:30 09/27/17 06:29 08/29/17 05:54 Metronidazole (Flagyl) 500 mg Q8HR ORAL 08/28/17 16:00 09/04/17 15:59 08/29/17 05:50 Morphine Sulfate (Morphine Sulfate) 2 mg Q4H PRN IVP Moderate Pain (Pain Scale 4-6) 08/27/17 15:00 09/03/17 14:59 08/29/17 12:27 Ondansetron HCl (Zofran) 4 mg Q6H PRN IVP Nausea & Vomiting 08/27/17 15:00 09/26/17 14:59 Polyethylene Glycol (Miralax) 17 gm DAILYPRN PRN ORAL Constipation 08/27/17 15:00 09/26/17 14:59 Povidone Iodine (Betadine Susan) 1 applic BID TOPIC 08/28/17 15:00 09/27/17 14:59 08/29/17 09:01 Sodium Chloride 1,000 ml @ 100 mls/hr Q10H IV 08/27/17 21:45 09/26/17 21:44 08/29/17 03:49 Temazepam (Restoril) 15 mg HSPRN PRN ORAL Insomnia 08/27/17 15:00 09/03/17 14:59 Vancomycin HCl (Vanco rx to dose) 1 ea DAILY PRN MISC . 08/27/17 15:45 09/26/17 15:44 Vancomycin HCl 1 gm/Dextrose 275 ml @ 183.708 mls/hr Q6HR IVPB 08/29/17 12:00 09/03/17 11:59 08/29/17 11:47 Newton (Rodney)Amara NP Aug 29, 2017 14:45
--- NOTE | 2017-08-29 15:15 | Internal Med Progress Note ---
Subjective Physician Name Zachariah Solomon Attending Physician Zachariah Solomon MD Current Medications Medications (Trade) Dose Ordered Sig/Ghazal Route PRN Reason Start Time Stop Time Status Last Admin Dose Admin Acetaminophen (Tylenol) 650 mg Q4H PRN ORAL fever 08/27/17 15:00 09/26/17 14:59 Albuterol/ Ipratropium (Albuterol/ Ipratropium) 3 ml Q4H PRN HHN Shortness of Breath 08/27/17 15:00 09/01/17 14:59 Cefepime HCl 2 gm/ Dextrose 55 ml @ 110 mls/hr Q12HR@0600,1800 IV 08/27/17 18:00 09/03/17 17:59 08/29/17 05:08 Dextrose (Dextrose 50%) STAT PRN IV Hypoglycemia 08/27/17 15:00 09/26/17 14:59 Heparin Sodium (Porcine) (Heparin 5000 units/ml) 5,000 units EVERY 12 HOURS SUBQ 08/27/17 21:00 09/26/17 20:59 08/29/17 09:00 Insulin Aspart (NovoLOG) BEFORE MEALS AND HS SUBQ 08/27/17 16:30 09/26/17 16:29 08/29/17 11:41 Insulin Detemir (Levemir) 7 units DAILY SUBQ 08/28/17 11:00 09/27/17 10:59 08/28/17 11:36 Metformin HCl (Glucophage) 500 mg BEFORE LUNCH ORAL 08/28/17 11:30 09/27/17 11:29 08/29/17 11:41 Metformin HCl (Glucophage) 1,000 mg BIAC ORAL 08/28/17 06:30 09/27/17 06:29 08/29/17 05:54 Metronidazole (Flagyl) 500 mg Q8HR ORAL 08/28/17 16:00 09/04/17 15:59 08/29/17 14:59 Morphine Sulfate (Morphine Sulfate) 2 mg Q4H PRN IVP Moderate Pain (Pain Scale 4-6) 08/27/17 15:00 09/03/17 14:59 08/29/17 12:27 Ondansetron HCl (Zofran) 4 mg Q6H PRN IVP Nausea & Vomiting 08/27/17 15:00 09/26/17 14:59 Polyethylene Glycol (Miralax) 17 gm DAILYPRN PRN ORAL Constipation 08/27/17 15:00 09/26/17 14:59 Povidone Iodine (Betadine Susan) 1 applic BID TOPIC 08/28/17 15:00 09/27/17 14:59 08/29/17 09:01 Sodium Chloride 1,000 ml @ 100 mls/hr Q10H IV 08/27/17 21:45 09/26/17 21:44 08/29/17 03:49 Temazepam (Restoril) 15 mg HSPRN PRN ORAL Insomnia 08/27/17 15:00 09/03/17 14:59 Vancomycin HCl (Vanco rx to dose) 1 ea DAILY PRN MISC . 08/27/17 15:45 09/26/17 15:44 Vancomycin HCl 1 gm/Dextrose 275 ml @ 183.708 mls/hr Q6HR IVPB 08/29/17 12:00 09/03/17 11:59 08/29/17 11:47 Allergies: Coded Allergies: No Known Allergies (Unverified , 10/08/16) Subjective awake, alert, responsive, NAD, No CP or SOB. Objective Last Vital Signs Date Time Temp Pulse Resp B/P (MAP) Pulse Ox O2 Delivery O2 Flow Rate FiO2 08/29/17 12:00 97.8 78 18 120/74 99 Room Air 08/29/17 07:00 21 Laboratory Tests Test 08/28/17 20:25 08/29/17 04:50 Vancomycin Level Trough 4.7 ug/mL (5.0-12.0) L Hepatitis A IgM Antibody Negative (Negative) Hepatitis B Surface Antigen Negative (Negative) Hepatitis B Core IgM Antibody Negative (Negative) Hepatitis C Antibody 0.2 s/co ratio (0.0-0.9) White Blood Count 4.6 K/UL (4.8-10.8) L Red Blood Count 4.70 M/UL (4.70-6.10) Hemoglobin 15.2 G/DL (14.2-18.0) Hematocrit 42.7 % (42.0-52.0) Mean Corpuscular Volume 91 FL (80-99) Mean Corpuscular Hemoglobin 32.4 PG (27.0-31.0) H Mean Corpuscular Hemoglobin Concent 35.6 G/DL (32.0-36.0) Red Cell Distribution Width 10.4 % (11.6-14.8) L Platelet Count 280 K/UL (150-450) Mean Platelet Volume 8.0 FL (6.5-10.1) Neutrophils (%) (Auto) 55.8 % (45.0-75.0) Lymphocytes (%) (Auto) 29.6 % (20.0-45.0) Monocytes (%) (Auto) 10.0 % (1.0-10.0) Eosinophils (%) (Auto) 3.4 % (0.0-3.0) H Basophils (%) (Auto) 1.2 % (0.0-2.0) Sodium Level 137 MMOL/L (136-145) Potassium Level 3.8 MMOL/L (3.5-5.1) Chloride Level 103 MMOL/L (98-107) Carbon Dioxide Level 29 MMOL/L (21-32) Anion Gap 5 mmol/L (5-15) Blood Urea Nitrogen 7 mg/dL (7-18) Creatinine 0.6 MG/DL (0.55-1.30) Estimat Glomerular Filtration Rate > 60 mL/min (>60) Glucose Level 199 MG/DL (74-106) H Calcium Level 9.4 MG/DL (8.5-10.1) Total Bilirubin 0.3 MG/DL (0.2-1.0) Aspartate Amino Transf (AST/SGOT) 29 U/L (15-37) Alanine Aminotransferase (ALT/SGPT) 68 U/L (12-78) Alkaline Phosphatase 210 U/L (46-116) H Total Protein 6.8 G/DL (6.4-8.2) Albumin 2.4 G/DL (3.4-5.0) L Globulin 4.4 g/dL Albumin/Globulin Ratio 0.5 (1.0-2.7) L Microbiology Date/Time Source Procedure Growth Status 08/27/17 11:54 Blood Blood Culture - Preliminary NO GROWTH AFTER 24 HOURS Resulted 08/27/17 11:54 Blood Blood Culture - Preliminary NO GROWTH AFTER 24 HOURS Resulted 08/27/17 16:00 Wound Gram Stain - Final Resulted 08/27/17 16:00 Wound Culture - Preliminary Strep Species, Gamma-Hemolytic Strep Species, Beta Hemolytic Streptococcus Viridans Resulted 08/27/17 13:40 Nasal Nares MRSA Culture - Final NO METHICILLIN RESISTANT STAPH AUREUS... Complete 08/27/17 12:35 Toe Left Second Gram Stain - Final Resulted 08/27/17 12:35 Wound Culture - Preliminary Strep Species, Gamma-Hemolytic Resulted Objective General: No acute distress, awake and alert HEENT: NCAT, sclera anicteric, PERRL, EOMI. Neck: Supple, no significant jugular venous distention, Lungs: Good inspiratory effort, no accessory muscle use, clear to auscultation bilaterally, no Wheeze or Rales. Heart: Regular rate and rhythm, normal S1/S2, no murmurs/gallops Abdomen: soft, nontender, nondistended. Normoactive bowel sounds. / Rectal: Refused and deferred. Extremities: No Cyanosis , clubbing or edema. Neuro: A&O x 3, Able to move all extremities, Left foot dressing. Skin: warm, no rashes or lesions Psych: Normal mood and affect Assessment/Plan Assessment/Plan IMPRESSION: 1. Uncontrolled diabetes type 2. 2. left foot infection STREP SPECIES, GAMMA-HEMOLYTIC GROWTH: 3+ Organism 2 STREP SPECIES, BETA HEMOLYTIC GROWTH: 3+ Organism 3 STREPTOCOCCUS VIRIDANS GROWTH: 3+ 3. Proteinuria. 4. Hyponatremia. 5. Abnormal LFT. PLAN: in Med/Surg. Dr. Vuong's from Podiatry monitor cultures. Broad-spectrum antibiotic with vancomycin, Flagyl, and Cefepime Accu-Chek with sliding scale. IV hydration Monitor Labs Code status is Full Code. DVT prophylaxis at low risk. Zachariah Solomon MD Aug 29, 2017 15:15
[2017-08-29 16:00] VITALS: BP 120/84
[2017-08-29 19:37] VITALS: BP 156/85
[2017-08-30] VITALS (7 sets, daily range): BP systolic 106–156; BP diastolic 71–96
[2017-08-30] MEDS: Cefepime HCl 2 GM in D5W 55 ML IV SCH ×2 (05:28→17:05)
[2017-08-30] MEDS: Vancomycin 1gm in Dextrose 275ml IVPB SCH ×3 (06:13→17:49)
[2017-08-30] MEDS: metroNIDAZOLE 500mg tab ORAL SCH ×2 (06:13→14:26)
[2017-08-30] MEDS: metFORMIN 500mg tab ORAL SCH ×3 (06:14→16:53)
[2017-08-30] MEDS: NovoLOG Insulin Flexpen SUBQ SCH ×4 (06:16→21:07)
[2017-08-30] MEDS: Betadine 4oz Bottle TOPIC SCH ×2 (08:21→17:05)
[2017-08-30] MEDS: Levemir Flexpen SUBQ SCH (08:22)
[2017-08-30] MEDS: Heparin 5000 units/ml inj SUBQ SCH ×2 (08:22→21:08)
--- NOTE | 2017-08-30 10:16 | Diagnostic Imaging Report ---
ULTRASOUND OF THE ABDOMEN HISTORY: Elevated LFTs. TECHNIQUE: Grayscale ultrasound imaging of the abdomen was performed. COMPARISON: No prior study is available for comparison. FINDINGS: The liver is borderline increased in size measuring 17.1 cm and mildly echogenic in appearance. There is no intrahepatic biliary ductal dilatation. Routine color and pulsed Doppler images demonstrate normal hepatopetal flow in the main portal vein. The gallbladder is surgically absent. The common bile duct measures 4 mm. The head and body of the pancreas are normal. The pancreatic tail is obscured by gas. The spleen is mildly enlarged and measures 13.5 cm. The right kidney measures 12.4 cm in length. The left kidney measures 13.1 cm in length. The kidneys appear normal without evidence of hydronephrosis. The visualized portions of the aorta and inferior vena cava appear normal. IMPRESSION: 1. Borderline hepatomegaly and increased hepatic echogenicity suggesting hepatic steatosis or other fibrofatty hepatocellular disease. Please correlate with liver function tests. 2. Mild splenomegaly. 3. Status post cholecystectomy.
--- NOTE | 2017-08-30 13:09 | Pulmonology Progress Note ---
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 3 rd toe wound wound care as per preschool teacher recommendations abx fup with cx blood cx prel negative , ID follows X ray left foot noted( likely gangrene,suspicious for osteo) MRI L foot - per ID discretion ID recommended 6 weeks Rx for presumptive OM , will hold on MRI for now will need PICC placement in am Venous Duplex BLE pain management BS management, HgA1c -9.8, not at goal , started on Levemir, continue SS of insulin, Metformin - BS better DVT prophylaxis Bowel regimen LFT down, abdominal US + likely hepatic steatosis, +HSM case discussed and evaluated by supervising physician Subjective Allergies: Coded Allergies: No Known Allergies (Unverified , 10/08/16) Subjective denies chest pain, SOB pain in the left foot, intermittently relieved with analgesics BS improving afebrile, no leukocytosis Objective Last 24 Hour Vital Signs Date Time Temp Pulse Resp B/P (MAP) Pulse Ox O2 Delivery O2 Flow Rate FiO2 08/30/17 12:00 97.8 83 18 106/71 99 Room Air 08/30/17 08:00 97.1 83 18 134/81 98 Room Air 08/30/17 07:30 86 18 Room Air 21 08/30/17 04:00 97.5 79 20 127/80 97 Room Air 08/30/17 00:00 97.9 81 20 135/95 99 Room Air 08/29/17 21:42 79 18 Room Air 21 08/29/17 19:37 97.9 92 20 156/85 96 Room Air 08/29/17 16:00 98.2 88 21 120/84 99 Room Air Intake and Output 08/30/17 08/31/17 19:00 07:00 Intake Total 183.708 ml Balance 183.708 ml IV Total 183.708 ml # Bowel Movements 2 Objective General Appearance: WD/WN, no acute distress HEENT: normocephalic, atraumatic, anicteric, mucous membranes moist Respiratory/Chest: lungs clear, no respiratory distress, no accessory muscle use Cardiovascular: normal rate, regular rhythm, no JVD Abdomen: normal bowel sounds, soft, non tender, non distended Extremities: other - Left foot with dressing C/D/I Neurologic/Psychiatric: no motor/sensory deficits, alert, oriented x 3, responsive Microbiology Date/Time Source Procedure Growth Status 08/27/17 16:00 Wound Gram Stain - Final Resulted 08/27/17 16:00 Wound Culture - Preliminary Enterococcus Faecalis Strep Species, Beta Hemolytic Streptococcus Viridans Resulted 08/27/17 13:40 Nasal Nares MRSA Culture - Final NO METHICILLIN RESISTANT STAPH AUREUS... Complete Laboratory Tests 08/30/17 05:15: Vancomycin Level Trough 16.9H Current Medications Medications (Trade) Dose Ordered Sig/Ghazal Route PRN Reason Start Time Stop Time Status Last Admin Dose Admin Acetaminophen (Tylenol) 650 mg Q4H PRN ORAL fever 08/27/17 15:00 09/26/17 14:59 Albuterol/ Ipratropium (Albuterol/ Ipratropium) 3 ml Q4H PRN HHN Shortness of Breath 08/27/17 15:00 09/01/17 14:59 Cefepime HCl 2 gm/ Dextrose 55 ml @ 110 mls/hr Q12HR@0600,1800 IV 08/27/17 18:00 09/03/17 17:59 08/30/17 05:28 Dextrose (Dextrose 50%) STAT PRN IV Hypoglycemia 08/27/17 15:00 09/26/17 14:59 Heparin Sodium (Porcine) (Heparin 5000 units/ml) 5,000 units EVERY 12 HOURS SUBQ 08/27/17 21:00 09/26/17 20:59 08/30/17 08:22 Insulin Aspart (NovoLOG) BEFORE MEALS AND HS SUBQ 08/27/17 16:30 09/26/17 16:29 08/30/17 12:36 Insulin Detemir (Levemir) 7 units DAILY SUBQ 08/28/17 11:00 09/27/17 10:59 08/30/17 08:22 Metformin HCl (Glucophage) 500 mg BEFORE LUNCH ORAL 08/28/17 11:30 09/27/17 11:29 08/30/17 12:33 Metformin HCl (Glucophage) 1,000 mg BIAC ORAL 08/28/17 06:30 09/27/17 06:29 08/30/17 06:14 Metronidazole (Flagyl) 500 mg Q8HR ORAL 08/28/17 16:00 09/04/17 15:59 08/30/17 06:13 Morphine Sulfate (Morphine Sulfate) 2 mg Q4H PRN IVP Moderate Pain (Pain Scale 4-6) 08/27/17 15:00 09/03/17 14:59 08/29/17 17:53 Ondansetron HCl (Zofran) 4 mg Q6H PRN IVP Nausea & Vomiting 08/27/17 15:00 09/26/17 14:59 Polyethylene Glycol (Miralax) 17 gm DAILYPRN PRN ORAL Constipation 08/27/17 15:00 09/26/17 14:59 Povidone Iodine (Betadine Susan) 1 applic BID TOPIC 08/28/17 15:00 09/27/17 14:59 08/30/17 08:21 Sodium Chloride 1,000 ml @ 100 mls/hr Q10H IV 08/27/17 21:45 09/26/17 21:44 08/29/17 23:48 Temazepam (Restoril) 15 mg HSPRN PRN ORAL Insomnia 08/27/17 15:00 09/03/17 14:59 Vancomycin HCl (Vanco rx to dose) 1 ea DAILY PRN MISC . 08/27/17 15:45 09/26/17 15:44 Vancomycin HCl 1 gm/Dextrose 275 ml @ 183.708 mls/hr Q6HR IVPB 08/29/17 12:00 09/03/17 11:59 08/30/17 12:33 Amara Glez NP ([facility]anchtein) Aug 30, 2017 13:09
[2017-08-30] MEDS ORDERED: Lidocaine 1% Plain 30 ml INJ ONE (13:30)
--- NOTE | 2017-08-30 15:21 | Internal Med Progress Note ---
Subjective Physician Name Zachariah Solomon Attending Physician Zachariah Solomon MD Current Medications Medications (Trade) Dose Ordered Sig/Ghazal Route PRN Reason Start Time Stop Time Status Last Admin Dose Admin Acetaminophen (Tylenol) 650 mg Q4H PRN ORAL fever 08/27/17 15:00 09/26/17 14:59 Albuterol/ Ipratropium (Albuterol/ Ipratropium) 3 ml Q4H PRN HHN Shortness of Breath 08/27/17 15:00 09/01/17 14:59 Cefepime HCl 2 gm/ Dextrose 55 ml @ 110 mls/hr Q12HR@0600,1800 IV 08/27/17 18:00 09/03/17 17:59 08/30/17 05:28 Chlorhexidine Gluconate (Catina-Hex 2%) 1 applic DAILY@2000 TOPIC 08/30/17 20:00 09/29/17 19:59 Dextrose (Dextrose 50%) STAT PRN IV Hypoglycemia 08/27/17 15:00 09/26/17 14:59 Heparin Sodium (Porcine) (Heparin 5000 units/ml) 5,000 units EVERY 12 HOURS SUBQ 08/27/17 21:00 09/26/17 20:59 08/30/17 08:22 Heparin Sodium/ Sodium Chloride (Heparin 2000 units/Ns 1000ml premix) 2,000 unit ONCE ONCE INJ 08/31/17 13:30 08/31/17 13:31 Insulin Aspart (NovoLOG) BEFORE MEALS AND HS SUBQ 08/27/17 16:30 09/26/17 16:29 08/30/17 12:36 Insulin Detemir (Levemir) 7 units DAILY SUBQ 08/28/17 11:00 09/27/17 10:59 08/30/17 08:22 Lidocaine HCl (Xylocaine 1% 30ml) 30 ml ONCE ONCE INJ 08/31/17 13:30 08/31/17 13:31 Metformin HCl (Glucophage) 500 mg BEFORE LUNCH ORAL 08/28/17 11:30 09/27/17 11:29 08/30/17 12:33 Metformin HCl (Glucophage) 1,000 mg BIAC ORAL 08/28/17 06:30 09/27/17 06:29 08/30/17 06:14 Metronidazole (Flagyl) 500 mg Q8HR ORAL 08/28/17 16:00 09/04/17 15:59 08/30/17 14:26 Morphine Sulfate (Morphine Sulfate) 2 mg Q4H PRN IVP Moderate Pain (Pain Scale 4-6) 08/27/17 15:00 09/03/17 14:59 08/29/17 17:53 Ondansetron HCl (Zofran) 4 mg Q6H PRN IVP Nausea & Vomiting 08/27/17 15:00 09/26/17 14:59 Polyethylene Glycol (Miralax) 17 gm DAILYPRN PRN ORAL Constipation 08/27/17 15:00 09/26/17 14:59 Povidone Iodine (Betadine Susan) 1 applic BID TOPIC 08/28/17 15:00 09/27/17 14:59 08/30/17 08:21 Sodium Chloride 1,000 ml @ 100 mls/hr Q10H IV 08/27/17 21:45 09/26/17 21:44 08/29/17 23:48 Temazepam (Restoril) 15 mg HSPRN PRN ORAL Insomnia 08/27/17 15:00 09/03/17 14:59 Vancomycin HCl (Vanco rx to dose) 1 ea DAILY PRN MISC . 08/27/17 15:45 09/26/17 15:44 Vancomycin HCl 1 gm/Dextrose 275 ml @ 183.708 mls/hr Q6HR IVPB 08/29/17 12:00 09/03/17 11:59 08/30/17 12:33 Allergies: Coded Allergies: No Known Allergies (Unverified , 10/08/16) Subjective awake, alert, responsive, NAD, No CP or SOB. Objective Last Vital Signs Date Time Temp Pulse Resp B/P (MAP) Pulse Ox O2 Delivery O2 Flow Rate FiO2 08/30/17 12:00 97.8 83 18 106/71 99 Room Air 08/30/17 07:30 21 Laboratory Tests Test 08/30/17 05:15 Vancomycin Level Trough 16.9 ug/mL (5.0-12.0) H Microbiology Date/Time Source Procedure Growth Status 08/27/17 16:00 Wound Gram Stain - Final Resulted 08/27/17 16:00 Wound Culture - Preliminary Enterococcus Faecalis Strep Species, Beta Hemolytic Streptococcus Viridans Resulted Intake and Output 08/30/17 08/31/17 19:00 07:00 Intake Total 183.708 ml Balance 183.708 ml IV Total 183.708 ml # Bowel Movements 2 Objective General: No acute distress, awake and alert HEENT: NCAT, sclera anicteric, PERRL, EOMI. Neck: Supple, no significant jugular venous distention, Lungs: Good inspiratory effort, no accessory muscle use, clear to auscultation bilaterally, no Wheeze or Rales. Heart: Regular rate and rhythm, normal S1/S2, no murmurs/gallops Abdomen: soft, nontender, nondistended. Normoactive bowel sounds. / Rectal: Refused and deferred. Extremities: No Cyanosis , clubbing or edema. Neuro: A&O x 3, Able to move all extremities, Left foot dressing. Skin: warm, no rashes or lesions Psych: Normal mood and affect Assessment/Plan Assessment/Plan IMPRESSION: 1. Uncontrolled diabetes type 2. 2. left foot infection STREP SPECIES, GAMMA-HEMOLYTIC GROWTH: 3+ Organism 2 STREP SPECIES, BETA HEMOLYTIC GROWTH: 3+ Organism 3 STREPTOCOCCUS VIRIDANS GROWTH: 3+ 3. Proteinuria. 4. Hyponatremia. 5. Abnormal LFT resolved. PLAN: in Med/Surg. F/U with ID recommendation monitor cultures. Broad-spectrum antibiotic with vancomycin, Flagyl, and Cefepime Accu-Chek with sliding scale. DC IV hydration Monitor Labs Code status is Full Code. DVT prophylaxis at low risk. Abdominal US IMPRESSION: 1. Borderline hepatomegaly and increased hepatic echogenicity suggesting hepatic steatosis or other fibrofatty hepatocellular disease. Please correlate with liver function tests. 2. Mild splenomegaly. 3. Status post cholecystectomy. Zachariah Solomon MD Aug 30, 2017 15:21
[2017-08-30] MEDS: Dyna-Hex 2% Top Sol 2oz TOPIC SCH (20:00)
[2017-08-31] MEDS: Vancomycin 1gm in Dextrose 275ml IVPB SCH ×2 (00:24→06:42)
[2017-08-31] MEDS: metroNIDAZOLE 500mg tab ORAL SCH ×2 (00:24→05:49)
[2017-08-31 04:00] VITALS: BP 112/72
[2017-08-31] MEDS: Cefepime HCl 2 GM in D5W 55 ML IV SCH (05:49)
[2017-08-31] MEDS: metFORMIN 500mg tab ORAL SCH ×3 (06:41→16:31)
[2017-08-31 06:45] LABS: BASOPHILS % (AUTO) 0.9 % (0.0-2.0); EOSINOPHILS % (AUTO) 3.1 % (0.0-3.0); LYMPHOCYTES % (AUTO) 31.6 % (20.0-45.0); MEAN CORPUSCULAR HEMOGLOBIN 31.8 PG (27.0-31.0); MEAN CORPUSCULAR HGB CONC 35.1 G/DL (32.0-36.0); MEAN CORPUSCULAR VOLUME 91 FL (80-99); MEAN PLATELET VOLUME 7.9 FL (6.5-10.1); MONOCYTES % (AUTO) 10.5 % (1.0-10.0); NEUTROPHILS % (AUTO) 53.9 % (45.0-75.0); PLATELET COUNT 312 K/UL (150-450); RED BLOOD COUNT 4.95 M/UL (4.70-6.10); RED CELL DISTRIBUTION WIDTH 10.6 % (11.6-14.8)
[2017-08-31] MEDS: NovoLOG Insulin Flexpen SUBQ SCH ×4 (06:51→20:25)
[2017-08-31 07:16] LABS: ANION GAP 7 mmol/L (5-15); CALCIUM 9.6 MG/DL (8.5-10.1); CARBON DIOXIDE 27 MMOL/L (21-32); CHLORIDE 105 MMOL/L (98-107); CREATININE 0.7 MG/DL (0.55-1.30); GLOMERULAR FILTRATION RATE > 60 mL/min (>60); POTASSIUM 3.7 MMOL/L (3.5-5.1); SODIUM 139 MMOL/L (136-145)
[2017-08-31 08:00] VITALS: BP 123/73
[2017-08-31] MEDS: Heparin 5000 units/ml inj SUBQ SCH ×2 (08:24→20:20)
[2017-08-31] MEDS: Levemir Flexpen SUBQ SCH (08:29)
[2017-08-31] MEDS: Betadine 4oz Bottle TOPIC SCH ×2 (09:00→16:56)
--- NOTE | 2017-08-31 10:55 | Infectious Diseases Prog Note ---
Assessment/Plan Assessment/Plan ASSESSMENT: 42 y/o male with: // Left 3rd toe ulcer / gangrene / abscess / osteomyelitis - SP I&D 08/27 - WCx :+3 E.fecalis ( S Amp, vanco), +3 S. anginosus/ constellatus, +3 S. viridans (preliminary) - XR: Evidence of destruction of the terminal tuft of the third distal phalanx, worrisome process myelitis. Overlying soft tissue defect likely relates to stated clinical history of gangrene. Possible gas bubbles are noted, may indicate open wound or infection with gas-forming organism. Equivocal soft tissue and bony abnormality of the terminal tuft of the second digit. Tissue loss and osteomyelitis in this area not completely excludable. Consider MRI for better characterization - elevated ESR // Left foot cellulitis, improving // Elevated LFTs improving hepatitis panel: neg Abd us: Borderline hepatomegaly and increased hepatic echogenicity suggesting hepatic steatosis or other fibrofatty hepatocellular disease. Please correlate with liver function tests. Mild splenomegaly. Status post cholecystectomy. // Afebrile without leukocytosis // Uncontrolled DM2 - HbA1c 9.8% // NKDA // Full Code PLAN: -Switch IV vancomycin, cefepime d# 5, and PO flagyl d# 4 to IV Unasyn 2g q 6h. Will need 6 weeks IV ABX if not amputated -alternative upon discharge if unable to do q6h dosing: IV Ceftriaxone plus PO flagyl - f/u final cultures - weekly CBC, CMP, ESR, CRP while on IV ABX Subjective Allergies: Coded Allergies: No Known Allergies (Unverified , 10/08/16) Subjective afebrile no leukocytosius Objective Vital Signs Last 24 Hour Vital Signs Date Time Temp Pulse Resp B/P (MAP) Pulse Ox O2 Delivery O2 Flow Rate FiO2 08/31/17 08:00 98.1 85 20 123/73 98 Room Air 08/31/17 04:00 97.5 77 20 112/72 98 Room Air 08/30/17 23:42 97.5 77 20 135/85 98 Room Air 08/30/17 19:39 97.7 83 20 143/95 99 Room Air 08/30/17 19:10 87 18 Room Air 21 08/30/17 15:45 98.2 85 19 156/96 98 Room Air 08/30/17 12:00 97.8 83 18 106/71 99 Room Air Height (Feet): 5 Height (Inches): 6.00 Weight (Pounds): 165 Objective General Appearance: WD/WN, no acute distress HEENT: normocephalic, atraumatic, anicteric, mucous membranes moist Respiratory/Chest: lungs clear, no respiratory distress, no accessory muscle use Cardiovascular: normal rate, regular rhythm, no JVD Abdomen: normal bowel sounds, soft, non tender, non distended Extremities: other - Left foot with dressing C/D/I Neurologic/Psychiatric: no motor/sensory deficits, alert, oriented x 3, responsive Laboratory Tests Test 08/31/17 05:00 White Blood Count 5.0 K/UL (4.8-10.8) Red Blood Count 4.95 M/UL (4.70-6.10) Hemoglobin 15.8 G/DL (14.2-18.0) Hematocrit 44.9 % (42.0-52.0) Mean Corpuscular Volume 91 FL (80-99) Mean Corpuscular Hemoglobin 31.8 PG (27.0-31.0) H Mean Corpuscular Hemoglobin Concent 35.1 G/DL (32.0-36.0) Red Cell Distribution Width 10.6 % (11.6-14.8) L Platelet Count 312 K/UL (150-450) Mean Platelet Volume 7.9 FL (6.5-10.1) Neutrophils (%) (Auto) 53.9 % (45.0-75.0) Lymphocytes (%) (Auto) 31.6 % (20.0-45.0) Monocytes (%) (Auto) 10.5 % (1.0-10.0) H Eosinophils (%) (Auto) 3.1 % (0.0-3.0) H Basophils (%) (Auto) 0.9 % (0.0-2.0) Sodium Level 139 MMOL/L (136-145) Potassium Level 3.7 MMOL/L (3.5-5.1) Chloride Level 105 MMOL/L (98-107) Carbon Dioxide Level 27 MMOL/L (21-32) Anion Gap 7 mmol/L (5-15) Blood Urea Nitrogen 8 mg/dL (7-18) Creatinine 0.7 MG/DL (0.55-1.30) Estimat Glomerular Filtration Rate > 60 mL/min (>60) Glucose Level 120 MG/DL (74-106) H Calcium Level 9.6 MG/DL (8.5-10.1) Current Medications Medications (Trade) Dose Ordered Sig/Ghazal Route PRN Reason Start Time Stop Time Status Last Admin Dose Admin Acetaminophen (Tylenol) 650 mg Q4H PRN ORAL fever 08/27/17 15:00 09/26/17 14:59 Albuterol/ Ipratropium (Albuterol/ Ipratropium) 3 ml Q4H PRN HHN Shortness of Breath 08/27/17 15:00 09/01/17 14:59 Cefepime HCl 2 gm/ Dextrose 55 ml @ 110 mls/hr Q12HR@0600,1800 IV 08/27/17 18:00 09/03/17 17:59 08/31/17 05:49 Chlorhexidine Gluconate (Catina-Hex 2%) 1 applic DAILY@2000 TOPIC 08/30/17 20:00 09/29/17 19:59 Dextrose (Dextrose 50%) STAT PRN IV Hypoglycemia 08/27/17 15:00 09/26/17 14:59 Heparin Sodium (Porcine) (Heparin 5000 units/ml) 5,000 units EVERY 12 HOURS SUBQ 08/27/17 21:00 09/26/17 20:59 08/31/17 08:24 Heparin Sodium/ Sodium Chloride (Heparin 2000 units/Ns 1000ml premix) 2,000 unit ONCE ONCE INJ 08/31/17 13:30 08/31/17 13:31 Insulin Aspart (NovoLOG) BEFORE MEALS AND HS SUBQ 08/27/17 16:30 09/26/17 16:29 08/31/17 06:51 Insulin Detemir (Levemir) 7 units DAILY SUBQ 08/28/17 11:00 09/27/17 10:59 08/31/17 08:29 Lidocaine HCl (Xylocaine 1% 30ml) 30 ml ONCE ONCE INJ 08/31/17 13:30 08/31/17 13:31 Metformin HCl (Glucophage) 500 mg BEFORE LUNCH ORAL 08/28/17 11:30 09/27/17 11:29 08/30/17 12:33 Metformin HCl (Glucophage) 1,000 mg BIAC ORAL 08/28/17 06:30 09/27/17 06:29 08/31/17 06:41 Metronidazole (Flagyl) 500 mg Q8HR ORAL 08/28/17 16:00 09/04/17 15:59 08/31/17 05:49 Morphine Sulfate (Morphine Sulfate) 2 mg Q4H PRN IVP Moderate Pain (Pain Scale 4-6) 08/27/17 15:00 09/03/17 14:59 08/29/17 17:53 Ondansetron HCl (Zofran) 4 mg Q6H PRN IVP Nausea & Vomiting 08/27/17 15:00 09/26/17 14:59 Polyethylene Glycol (Miralax) 17 gm DAILYPRN PRN ORAL Constipation 08/27/17 15:00 09/26/17 14:59 Povidone Iodine (Betadine Susan) 1 applic BID TOPIC 08/28/17 15:00 09/27/17 14:59 08/30/17 17:05 Temazepam (Restoril) 15 mg HSPRN PRN ORAL Insomnia 08/27/17 15:00 09/03/17 14:59 Vancomycin HCl (Vanco rx to dose) 1 ea DAILY PRN MISC . 08/27/17 15:45 09/26/17 15:44 Vancomycin HCl 1 gm/Dextrose 275 ml @ 183.708 mls/hr Q6HR IVPB 08/29/17 12:00 09/03/17 11:59 08/31/17 06:42 Tawnya Turner M.D. Aug 31, 2017 10:55
[2017-08-31 12:00] VITALS: BP 140/85
[2017-08-31] MEDS: Ampicillin/Sulbactam Sod 3 GM in NS 110 ML IVPB SCH ×3 (12:37→23:49)
[2017-08-31] MEDS: Morphine Sulfate 2mg/ml Inj IVP PRN ×2 (13:09→16:57)
--- NOTE | 2017-08-31 13:21 | Diagnostic Imaging Report ---
Indications: Needs long-term IV access Technique: Ultrasound confirms patent compressible left basilic vein. Total sterile technique, including sterile probe cover and sterile gel, hat, mask,, sterile gown, large sterile drape, and preparation with 2% chlorhexidine utilized. Local anesthesia with 1% lidocaine. Under real-time ultrasound guidance, puncture basilic vein using 21-gauge needle, documented and archived, passage 0.018 guidewire under direct fluoroscopy, which was used to determine appropriate catheter length, exchange for 5 Swedish peel-away sheath. 5 Swedish Bard dual-lumen power PICC cut to but acute cm. It was inserted through the peel-away sheath. Peel-away sheath and guidewire removed. Catheter fixed to the skin. Both catheter ports aspirated and flushed. Patient tolerated procedure well, without immediate complication. Digital radiograph documents satisfactory catheter tip position, at the cavoatrial junction. Total fluoroscopy time 0.2 minutes. Total dose area product 7 dGycm2 Impression: Successful placement of left PICC under sonographic and fluoroscopic guidance, as described above.
[2017-08-31] MEDS ORDERED: Lidocaine 1% Plain 30 ml INJ ONE (13:30)
[2017-08-31] MEDS ORDERED: Heparin 2000 units/Ns 1000ml INJ ONE (13:30)
--- NOTE | 2017-08-31 15:37 | Pulmonology Progress Note ---
Assessment/Plan Problems: (1) Gangrene (2) Hyperglycemia (3) Cellulitis of third toe, left Assessment/Plan iv abx wound care dc planning Subjective ROS Limited/Unobtainable: No Constitutional: Reports: no symptoms HEENT: Repors: no symptoms Respiratory: Reports: no symptoms Cardiovascular: Reports: no symptoms Allergies: Coded Allergies: No Known Allergies (Unverified , 10/08/16) Objective Last 24 Hour Vital Signs Date Time Temp Pulse Resp B/P (MAP) Pulse Ox O2 Delivery O2 Flow Rate FiO2 08/31/17 13:39 99.1 08/31/17 12:00 99.1 86 20 140/85 98 Room Air 08/31/17 08:00 98.1 85 20 123/73 98 Room Air 08/31/17 07:25 84 18 Room Air 21 08/31/17 04:00 97.5 77 20 112/72 98 Room Air 08/30/17 23:42 97.5 77 20 135/85 98 Room Air 08/30/17 19:39 97.7 83 20 143/95 99 Room Air 08/30/17 19:10 87 18 Room Air 21 08/30/17 15:45 98.2 85 19 156/96 98 Room Air Intake and Output 08/31/17 09/01/17 19:00 07:00 Intake Total 110 ml Balance 110 ml IV Total 110 ml General Appearance: WD/WN HEENT: normocephalic, atraumatic Respiratory/Chest: chest wall non-tender, lungs clear Cardiovascular: normal peripheral pulses, normal rate Abdomen: no organomegaly Extremities: no cyanosis Skin: no rash Laboratory Tests 08/31/17 05:00: White Blood Count 5.0, Red Blood Count 4.95, Hemoglobin 15.8, Hematocrit 44.9, Mean Corpuscular Volume 91, Mean Corpuscular Hemoglobin 31.8H, Mean Corpuscular Hemoglobin Concent 35.1, Red Cell Distribution Width 10.6L, Platelet Count 312, Mean Platelet Volume 7.9, Neutrophils (%) (Auto) 53.9, Lymphocytes (%) (Auto) 31.6, Monocytes (%) (Auto) 10.5H, Eosinophils (%) (Auto) 3.1H, Basophils (%) ( Auto) 0.9, Sodium Level 139, Potassium Level 3.7, Chloride Level 105, Carbon Dioxide Level 27, Anion Gap 7, Blood Urea Nitrogen 8, Creatinine 0.7, Estimat Glomerular Filtration Rate > 60, Glucose Level 120H, Calcium Level 9.6 Current Medications Medications (Trade) Dose Ordered Sig/Ghazal Route PRN Reason Start Time Stop Time Status Last Admin Dose Admin Acetaminophen (Tylenol) 650 mg Q4H PRN ORAL fever 08/27/17 15:00 09/26/17 14:59 Albuterol/ Ipratropium (Albuterol/ Ipratropium) 3 ml Q4H PRN HHN Shortness of Breath 08/27/17 15:00 09/01/17 14:59 Ampicillin Sodium/ Sulbactam Sodium 3 gm/Sodium Chloride 110 ml @ 220 mls/hr Q6HR IVPB 08/31/17 12:30 09/07/17 12:29 08/31/17 12:37 Chlorhexidine Gluconate (Catina-Hex 2%) 1 applic DAILY@2000 TOPIC 08/30/17 20:00 09/29/17 19:59 Dextrose (Dextrose 50%) STAT PRN IV Hypoglycemia 08/27/17 15:00 09/26/17 14:59 Heparin Sodium (Porcine) (Heparin 5000 units/ml) 5,000 units EVERY 12 HOURS SUBQ 08/27/17 21:00 09/26/17 20:59 08/31/17 08:24 Insulin Aspart (NovoLOG) BEFORE MEALS AND HS SUBQ 08/27/17 16:30 09/26/17 16:29 08/31/17 11:23 Insulin Detemir (Levemir) 7 units DAILY SUBQ 08/28/17 11:00 09/27/17 10:59 08/31/17 08:29 Metformin HCl (Glucophage) 500 mg BEFORE LUNCH ORAL 08/28/17 11:30 09/27/17 11:29 08/31/17 11:16 Metformin HCl (Glucophage) 1,000 mg BIAC ORAL 08/28/17 06:30 09/27/17 06:29 08/31/17 06:41 Morphine Sulfate (Morphine Sulfate) 2 mg Q4H PRN IVP Moderate Pain (Pain Scale 4-6) 08/27/17 15:00 09/03/17 14:59 08/31/17 13:09 Ondansetron HCl (Zofran) 4 mg Q6H PRN IVP Nausea & Vomiting 08/27/17 15:00 09/26/17 14:59 Polyethylene Glycol (Miralax) 17 gm DAILYPRN PRN ORAL Constipation 08/27/17 15:00 09/26/17 14:59 Povidone Iodine (Betadine Susan) 1 applic BID TOPIC 08/28/17 15:00 09/27/17 14:59 08/31/17 09:00 Temazepam (Restoril) 15 mg HSPRN PRN ORAL Insomnia 08/27/17 15:00 09/03/17 14:59 CESAR SRINIVASAN Aug 31, 2017 15:37
[2017-08-31 16:00] VITALS: BP 117/81
--- NOTE | 2017-08-31 19:56 | Internal Med Progress Note ---
Subjective Date of Service: Aug 31, 2017 Physician Name Salima Sheffield Attending Physician Zachariah Solomon MD Current Medications Medications (Trade) Dose Ordered Sig/Ghazal Route PRN Reason Start Time Stop Time Status Last Admin Dose Admin Acetaminophen (Tylenol) 650 mg Q4H PRN ORAL fever 08/27/17 15:00 09/26/17 14:59 Albuterol/ Ipratropium (Albuterol/ Ipratropium) 3 ml Q4H PRN HHN Shortness of Breath 08/27/17 15:00 09/01/17 14:59 Ampicillin Sodium/ Sulbactam Sodium 3 gm/Sodium Chloride 110 ml @ 220 mls/hr Q6HR IVPB 08/31/17 12:30 09/07/17 12:29 08/31/17 17:25 Chlorhexidine Gluconate (Catina-Hex 2%) 1 applic DAILY@2000 TOPIC 08/30/17 20:00 09/29/17 19:59 Dextrose (Dextrose 50%) STAT PRN IV Hypoglycemia 08/27/17 15:00 09/26/17 14:59 Heparin Sodium (Porcine) (Heparin 5000 units/ml) 5,000 units EVERY 12 HOURS SUBQ 08/27/17 21:00 09/26/17 20:59 08/31/17 08:24 Insulin Aspart (NovoLOG) BEFORE MEALS AND HS SUBQ 08/27/17 16:30 09/26/17 16:29 08/31/17 11:23 Insulin Detemir (Levemir) 7 units DAILY SUBQ 08/28/17 11:00 09/27/17 10:59 08/31/17 08:29 Metformin HCl (Glucophage) 500 mg BEFORE LUNCH ORAL 08/28/17 11:30 09/27/17 11:29 08/31/17 11:16 Metformin HCl (Glucophage) 1,000 mg BIAC ORAL 08/28/17 06:30 09/27/17 06:29 08/31/17 16:31 Morphine Sulfate (Morphine Sulfate) 2 mg Q4H PRN IVP Moderate Pain (Pain Scale 4-6) 08/27/17 15:00 09/03/17 14:59 08/31/17 16:57 Ondansetron HCl (Zofran) 4 mg Q6H PRN IVP Nausea & Vomiting 08/27/17 15:00 09/26/17 14:59 Polyethylene Glycol (Miralax) 17 gm DAILYPRN PRN ORAL Constipation 08/27/17 15:00 09/26/17 14:59 Povidone Iodine (Betadine Susan) 1 applic BID TOPIC 08/28/17 15:00 09/27/17 14:59 08/31/17 16:56 Temazepam (Restoril) 15 mg HSPRN PRN ORAL Insomnia 08/27/17 15:00 09/03/17 14:59 Allergies: Coded Allergies: No Known Allergies (Unverified , 10/08/16) ROS Limited/Unobtainable: No Constitutional: Reports: no symptoms HEENT: Reports: no symptoms Cardiovascular: Reports: no symptoms Respiratory: Reports: no symptoms Gastrointestinal/Abdominal: Reports: no symptoms Genitourinary: Reports: no symptoms Neurologic/Psychiatric: Reports: no symptoms Subjective 42 YO M admitted with infection left foot. Now osteomyelitis left 3rd toe. Cover for Int [facility]-Dr Solomon. Objective Last Vital Signs Date Time Temp Pulse Resp B/P (MAP) Pulse Ox O2 Delivery O2 Flow Rate FiO2 08/31/17 17:27 98.0 08/31/17 16:00 85 20 117/81 99 Room Air 08/31/17 07:25 21 Laboratory Tests Test 08/31/17 05:00 White Blood Count 5.0 K/UL (4.8-10.8) Red Blood Count 4.95 M/UL (4.70-6.10) Hemoglobin 15.8 G/DL (14.2-18.0) Hematocrit 44.9 % (42.0-52.0) Mean Corpuscular Volume 91 FL (80-99) Mean Corpuscular Hemoglobin 31.8 PG (27.0-31.0) H Mean Corpuscular Hemoglobin Concent 35.1 G/DL (32.0-36.0) Red Cell Distribution Width 10.6 % (11.6-14.8) L Platelet Count 312 K/UL (150-450) Mean Platelet Volume 7.9 FL (6.5-10.1) Neutrophils (%) (Auto) 53.9 % (45.0-75.0) Lymphocytes (%) (Auto) 31.6 % (20.0-45.0) Monocytes (%) (Auto) 10.5 % (1.0-10.0) H Eosinophils (%) (Auto) 3.1 % (0.0-3.0) H Basophils (%) (Auto) 0.9 % (0.0-2.0) Sodium Level 139 MMOL/L (136-145) Potassium Level 3.7 MMOL/L (3.5-5.1) Chloride Level 105 MMOL/L (98-107) Carbon Dioxide Level 27 MMOL/L (21-32) Anion Gap 7 mmol/L (5-15) Blood Urea Nitrogen 8 mg/dL (7-18) Creatinine 0.7 MG/DL (0.55-1.30) Estimat Glomerular Filtration Rate > 60 mL/min (>60) Glucose Level 120 MG/DL (74-106) H Calcium Level 9.6 MG/DL (8.5-10.1) Intake and Output 08/31/17 09/01/17 19:00 07:00 Intake Total 110 ml Balance 110 ml IV Total 110 ml Objective Objective General: No acute distress, awake and alert HEENT: NCAT, sclera anicteric, PERRL, EOMI. Neck: Supple, no significant jugular venous distention, Lungs: Good inspiratory effort, no accessory muscle use, clear to auscultation bilaterally, no Wheeze or Rales. Heart: Regular rate and rhythm, normal S1/S2, no murmurs/gallops Abdomen: soft, nontender, nondistended. Normoactive bowel sounds. / Rectal: Refused and deferred. Extremities: No Cyanosis , clubbing or edema. Neuro: A&O x 3, Able to move all extremities, Left foot dressing. Skin: warm, no rashes or lesions Psych: Normal mood and affect Assessment/Plan Problem List: (1) Osteomyelitis of toe of left foot Assessment & Plan: See podiatry and ID note. Continue vanco, flagyl and cefepime. May require serial I&D. (2) Abnormal liver function test (3) Uncontrolled diabetes mellitus Assessment & Plan: Continue novolog sliding scale. Status: not improved SALIMA SHEFFIELD Aug 31, 2017 19:56
[2017-08-31 20:00] VITALS: BP 151/85
[2017-08-31] MEDS: Dyna-Hex 2% Top Sol 2oz TOPIC SCH (20:18)
[2017-09-01] VITALS: BP 135/83
[2017-09-01 04:00] VITALS: BP 131/87
[2017-09-01] MEDS: Ampicillin/Sulbactam Sod 3 GM in NS 110 ML IVPB SCH ×4 (05:53→23:53)
[2017-09-01] MEDS: metFORMIN 500mg tab ORAL SCH ×3 (05:54→16:33)
[2017-09-01] MEDS: NovoLOG Insulin Flexpen SUBQ SCH ×4 (05:57→20:45)
[2017-09-01 08:00] VITALS: BP 123/77
[2017-09-01] MEDS: Heparin 5000 units/ml inj SUBQ SCH ×2 (09:20→20:44)
[2017-09-01] MEDS: Levemir Flexpen SUBQ SCH (09:21)
[2017-09-01] MEDS: Betadine 4oz Bottle TOPIC SCH ×2 (09:25→17:08)
[2017-09-01 12:00] VITALS: BP 131/77
--- NOTE | 2017-09-01 12:19 | Infectious Diseases Prog Note ---
Assessment/Plan Assessment/Plan ASSESSMENT: 42 y/o male with: // Left 3rd toe ulcer / gangrene / abscess / osteomyelitis - SP I&D 08/27 - WCx :+3 E.fecalis ( S Amp, vanco), +3 S. anginosus/ constellatus, +3 S. viridans , <+1 S. aureus (sensi pending) - XR: Evidence of destruction of the terminal tuft of the third distal phalanx, worrisome process myelitis. Overlying soft tissue defect likely relates to stated clinical history of gangrene. Possible gas bubbles are noted, may indicate open wound or infection with gas-forming organism. Equivocal soft tissue and bony abnormality of the terminal tuft of the second digit. Tissue loss and osteomyelitis in this area not completely excludable. Consider MRI for better characterization - elevated ESR // Left foot cellulitis, improving // Elevated LFTs improving hepatitis panel: neg Abd us: Borderline hepatomegaly and increased hepatic echogenicity suggesting hepatic steatosis or other fibrofatty hepatocellular disease. Please correlate with liver function tests. Mild splenomegaly. Status post cholecystectomy. // Afebrile without leukocytosis // Uncontrolled DM2 - HbA1c 9.8% // NKDA // Full Code PLAN: -Continue IV Unasyn 3g q 6h abx d# for OM and resumed IV Vancomycin pending S.aureus sensi -alternative upon discharge if unable to do q6h dosing: IV Ceftriaxone 2g qd plus PO flagyl 500mg q8h, if MSSA- if MRSA will do IV Vanco and Ceftriaxone -08/31 SP IV Vanco, Cefepime, Flagyl #4 - f/u final cultures - weekly CBC, CMP, ESR, CRP while on IV ABX Subjective Allergies: Coded Allergies: No Known Allergies (Unverified , 10/08/16) Subjective afebrile no leukocytosius wound cx also grwoing S.aureus Bcx NTD Objective Vital Signs Last 24 Hour Vital Signs Date Time Temp Pulse Resp B/P (MAP) Pulse Ox O2 Delivery O2 Flow Rate FiO2 09/01/17 08:00 97.9 86 19 123/77 98 Room Air 09/01/17 07:55 86 18 Room Air 21 09/01/17 04:00 97.9 83 18 131/87 99 Room Air 09/01/17 00:00 97.5 81 18 135/83 95 Room Air 08/31/17 20:00 98.1 87 18 151/85 99 Room Air 08/31/17 19:00 91 18 Room Air 21 08/31/17 17:27 98.0 08/31/17 16:00 98.0 85 20 117/81 99 Room Air Height (Feet): 5 Height (Inches): 6.00 Weight (Pounds): 165 Objective General Appearance: WD/WN, no acute distress HEENT: normocephalic, atraumatic, anicteric, mucous membranes moist Respiratory/Chest: lungs clear, no respiratory distress, no accessory muscle use Cardiovascular: normal rate, regular rhythm, no JVD Abdomen: normal bowel sounds, soft, non tender, non distended Extremities: other - Left foot with dressing C/D/I Neurologic/Psychiatric: no motor/sensory deficits, alert, oriented x 3, responsive Current Medications Medications (Trade) Dose Ordered Sig/Ghazal Route PRN Reason Start Time Stop Time Status Last Admin Dose Admin Acetaminophen (Tylenol) 650 mg Q4H PRN ORAL fever 08/27/17 15:00 09/26/17 14:59 Albuterol/ Ipratropium (Albuterol/ Ipratropium) 3 ml Q4H PRN HHN Shortness of Breath 08/27/17 15:00 09/01/17 14:59 Ampicillin Sodium/ Sulbactam Sodium 3 gm/Sodium Chloride 110 ml @ 220 mls/hr Q6HR IVPB 08/31/17 12:30 09/07/17 12:29 09/01/17 05:53 Chlorhexidine Gluconate (Catina-Hex 2%) 1 applic DAILY@2000 TOPIC 08/30/17 20:00 09/29/17 19:59 08/31/17 20:18 Dextrose (Dextrose 50%) STAT PRN IV Hypoglycemia 08/27/17 15:00 09/26/17 14:59 Heparin Sodium (Porcine) (Heparin 5000 units/ml) 5,000 units EVERY 12 HOURS SUBQ 08/27/17 21:00 09/26/17 20:59 09/01/17 09:20 Insulin Aspart (NovoLOG) BEFORE MEALS AND HS SUBQ 08/27/17 16:30 09/26/17 16:29 09/01/17 05:57 Insulin Detemir (Levemir) 7 units DAILY SUBQ 08/28/17 11:00 09/27/17 10:59 09/01/17 09:21 Metformin HCl (Glucophage) 500 mg BEFORE LUNCH ORAL 08/28/17 11:30 09/27/17 11:29 08/31/17 11:16 Metformin HCl (Glucophage) 1,000 mg BIAC ORAL 08/28/17 06:30 09/27/17 06:29 09/01/17 05:54 Morphine Sulfate (Morphine Sulfate) 2 mg Q4H PRN IVP Moderate Pain (Pain Scale 4-6) 08/27/17 15:00 09/03/17 14:59 08/31/17 16:57 Ondansetron HCl (Zofran) 4 mg Q6H PRN IVP Nausea & Vomiting 08/27/17 15:00 09/26/17 14:59 Polyethylene Glycol (Miralax) 17 gm DAILYPRN PRN ORAL Constipation 08/27/17 15:00 09/26/17 14:59 Povidone Iodine (Betadine Susan) 1 applic BID TOPIC 08/28/17 15:00 09/27/17 14:59 09/01/17 09:25 Temazepam (Restoril) 15 mg HSPRN PRN ORAL Insomnia 08/27/17 15:00 09/03/17 14:59 Tawnya Tunrer M.D. Sep 01, 2017 12:19
[2017-09-01] MEDS: Morphine Sulfate 2mg/ml Inj IVP PRN (12:56)
--- NOTE | 2017-09-01 15:37 | Podiatric Progress Note ---
Assessment/Plan Patient Edd Alrdich is a 42 year old male who was admitted on Aug 27, 2017 at 12:07 with Problems: Assessment/Plan A/ 1) Gas left 3rd toe - resolved 2) OM left 3rd toe 3) Cellulitis of left foot - resolved 4) DM 5) Diabetic Neuropathy P/ 1) Cont wound care. Condition is improving. Will need outpatient follow. Patient can be discharged from my standpoint 2) Cont IV abx, recommend skilled nursing abx 3) Will monitor Subjective Allergies: Coded Allergies: No Known Allergies (Unverified , 10/08/16) Subjective Patient is feeling better. He wants to go home Objective Exam Last 24 Hour Vital Signs Date Time Temp Pulse Resp B/P (MAP) Pulse Ox O2 Delivery O2 Flow Rate FiO2 09/01/17 12:00 98.0 85 18 131/77 97 Room Air 09/01/17 08:00 97.9 86 19 123/77 98 Room Air 09/01/17 07:55 86 18 Room Air 21 09/01/17 04:00 97.9 83 18 131/87 99 Room Air 09/01/17 00:00 97.5 81 18 135/83 95 Room Air 08/31/17 20:00 98.1 87 18 151/85 99 Room Air 08/31/17 19:00 91 18 Room Air 21 08/31/17 17:27 98.0 08/31/17 16:00 98.0 85 20 117/81 99 Room Air Microbiology Date/Time Source Procedure Growth Status 08/27/17 11:54 Blood Blood Culture - Preliminary NO GROWTH AFTER 4 DAYS Resulted 08/27/17 16:00 Wound Gram Stain - Final Resulted 08/27/17 16:00 Wound Culture - Preliminary Enterococcus Faecalis Strep Anginosus/Constellatus Streptococcus Viridans Staphylococcus Aureus Resulted 08/27/17 13:40 Nasal Nares MRSA Culture - Final NO METHICILLIN RESISTANT STAPH AUREUS... Complete 08/27/17 12:35 Toe Left Second Gram Stain - Final Complete 08/27/17 12:35 Wound Culture - Final Enterococcus Faecalis Complete Dermatological Dermatological Narrative left 3rd toe reduced swelling. no discharge, erythema resolved. Distal portion necrotic but remaining toe viable. Maykel Vuong DPNate Sep 01, 2017 15:37
--- NOTE | 2017-09-01 15:41 | Pulmonology Progress Note ---
Assessment/Plan Problems: (1) Gangrene (2) Hyperglycemia (3) Cellulitis of third toe, left Assessment/Plan iv abx wound care dc planning might need to go to a skilled care facility Subjective ROS Limited/Unobtainable: No Constitutional: Reports: no symptoms HEENT: Repors: no symptoms Respiratory: Reports: no symptoms Cardiovascular: Reports: no symptoms Allergies: Coded Allergies: No Known Allergies (Unverified , 10/08/16) Objective Last 24 Hour Vital Signs Date Time Temp Pulse Resp B/P (MAP) Pulse Ox O2 Delivery O2 Flow Rate FiO2 09/01/17 12:00 98.0 85 18 131/77 97 Room Air 09/01/17 08:00 97.9 86 19 123/77 98 Room Air 09/01/17 07:55 86 18 Room Air 21 09/01/17 04:00 97.9 83 18 131/87 99 Room Air 09/01/17 00:00 97.5 81 18 135/83 95 Room Air 08/31/17 20:00 98.1 87 18 151/85 99 Room Air 08/31/17 19:00 91 18 Room Air 21 08/31/17 17:27 98.0 08/31/17 16:00 98.0 85 20 117/81 99 Room Air Intake and Output 09/01/17 09/02/17 19:00 07:00 Intake Total 110 ml Balance 110 ml IV Total 110 ml General Appearance: WD/WN, no acute distress HEENT: normocephalic Respiratory/Chest: chest wall non-tender, lungs clear Cardiovascular: normal peripheral pulses, normal rate Abdomen: normal bowel sounds, soft, non tender Genitourinary: normal external genitalia Extremities: no clubbing Skin: no ulcers Current Medications Medications (Trade) Dose Ordered Sig/Ghazal Route PRN Reason Start Time Stop Time Status Last Admin Dose Admin Acetaminophen (Tylenol) 650 mg Q4H PRN ORAL fever 08/27/17 15:00 09/26/17 14:59 Ampicillin Sodium/ Sulbactam Sodium 3 gm/Sodium Chloride 110 ml @ 220 mls/hr Q6HR IVPB 08/31/17 12:30 09/07/17 12:29 09/01/17 12:42 Chlorhexidine Gluconate (Catina-Hex 2%) 1 applic DAILY@1999 TOPIC 08/30/17 20:00 09/29/17 19:59 08/31/17 20:18 Dextrose (Dextrose 50%) STAT PRN IV Hypoglycemia 08/27/17 15:00 09/26/17 14:59 Heparin Sodium (Porcine) (Heparin 5000 units/ml) 5,000 units EVERY 12 HOURS SUBQ 08/27/17 21:00 09/26/17 20:59 09/01/17 09:20 Insulin Aspart (NovoLOG) BEFORE MEALS AND HS SUBQ 08/27/17 16:30 09/26/17 16:29 09/01/17 12:38 Insulin Detemir (Levemir) 7 units DAILY SUBQ 08/28/17 11:00 09/27/17 10:59 09/01/17 09:21 Metformin HCl (Glucophage) 500 mg BEFORE LUNCH ORAL 08/28/17 11:30 09/27/17 11:29 09/01/17 12:42 Metformin HCl (Glucophage) 1,000 mg BIAC ORAL 08/28/17 06:30 09/27/17 06:29 09/01/17 05:54 Morphine Sulfate (Morphine Sulfate) 2 mg Q4H PRN IVP Moderate Pain (Pain Scale 4-6) 08/27/17 15:00 09/03/17 14:59 09/01/17 12:56 Ondansetron HCl (Zofran) 4 mg Q6H PRN IVP Nausea & Vomiting 08/27/17 15:00 09/26/17 14:59 Polyethylene Glycol (Miralax) 17 gm DAILYPRN PRN ORAL Constipation 08/27/17 15:00 09/26/17 14:59 Povidone Iodine (Betadine Susan) 1 applic BID TOPIC 08/28/17 15:00 09/27/17 14:59 09/01/17 09:25 Temazepam (Restoril) 15 mg HSPRN PRN ORAL Insomnia 08/27/17 15:00 09/03/17 14:59 Vancomycin HCl (Vanco rx to dose) 1 ea DAILYPRN PRN MISC Per rx protocol 09/01/17 12:30 10/01/17 12:29 Vancomycin HCl 1 gm/Dextrose 275 ml @ 183.708 mls/hr Q6H IVPB 09/01/17 16:30 09/06/17 16:29 CESAR SRINIVASAN Sep 01, 2017 15:41
--- NOTE | 2017-09-01 15:51 | Internal Med Progress Note ---
Subjective Date of Service: Sep 01, 2017 Physician Name Salima Sheffield Attending Physician Zachariah Solomon MD Current Medications Medications (Trade) Dose Ordered Sig/Ghazal Route PRN Reason Start Time Stop Time Status Last Admin Dose Admin Acetaminophen (Tylenol) 650 mg Q4H PRN ORAL fever 08/27/17 15:00 09/26/17 14:59 Ampicillin Sodium/ Sulbactam Sodium 3 gm/Sodium Chloride 110 ml @ 220 mls/hr Q6HR IVPB 08/31/17 12:30 09/07/17 12:29 09/01/17 12:42 Chlorhexidine Gluconate (Catina-Hex 2%) 1 applic DAILY@2000 TOPIC 08/30/17 20:00 09/29/17 19:59 08/31/17 20:18 Dextrose (Dextrose 50%) STAT PRN IV Hypoglycemia 08/27/17 15:00 09/26/17 14:59 Heparin Sodium (Porcine) (Heparin 5000 units/ml) 5,000 units EVERY 12 HOURS SUBQ 08/27/17 21:00 09/26/17 20:59 09/01/17 09:20 Insulin Aspart (NovoLOG) BEFORE MEALS AND HS SUBQ 08/27/17 16:30 09/26/17 16:29 09/01/17 12:38 Insulin Detemir (Levemir) 7 units DAILY SUBQ 08/28/17 11:00 09/27/17 10:59 09/01/17 09:21 Metformin HCl (Glucophage) 500 mg BEFORE LUNCH ORAL 08/28/17 11:30 09/27/17 11:29 09/01/17 12:42 Metformin HCl (Glucophage) 1,000 mg BIAC ORAL 08/28/17 06:30 09/27/17 06:29 09/01/17 05:54 Morphine Sulfate (Morphine Sulfate) 2 mg Q4H PRN IVP Moderate Pain (Pain Scale 4-6) 08/27/17 15:00 09/03/17 14:59 09/01/17 12:56 Ondansetron HCl (Zofran) 4 mg Q6H PRN IVP Nausea & Vomiting 08/27/17 15:00 09/26/17 14:59 Polyethylene Glycol (Miralax) 17 gm DAILYPRN PRN ORAL Constipation 08/27/17 15:00 09/26/17 14:59 Povidone Iodine (Betadine Susan) 1 applic BID TOPIC 08/28/17 15:00 09/27/17 14:59 09/01/17 09:25 Temazepam (Restoril) 15 mg HSPRN PRN ORAL Insomnia 08/27/17 15:00 09/03/17 14:59 Vancomycin HCl (Vanco rx to dose) 1 ea DAILYPRN PRN MISC Per rx protocol 09/01/17 12:30 10/01/17 12:29 Vancomycin HCl 1 gm/Dextrose 275 ml @ 183.708 mls/hr Q6H IVPB 09/01/17 16:30 09/06/17 16:29 Allergies: Coded Allergies: No Known Allergies (Unverified , 10/08/16) ROS Limited/Unobtainable: No Constitutional: Reports: no symptoms HEENT: Reports: no symptoms Cardiovascular: Reports: no symptoms Respiratory: Reports: no symptoms Gastrointestinal/Abdominal: Reports: no symptoms Genitourinary: Reports: no symptoms Neurologic/Psychiatric: Reports: no symptoms Subjective 42 YO M admitted with infection left foot. Now osteomyelitis left 3rd toe. Cover for Int Med-Dr Solomon. Objective Last Vital Signs Date Time Temp Pulse Resp B/P (MAP) Pulse Ox O2 Delivery O2 Flow Rate FiO2 09/01/17 12:00 98.0 85 18 131/77 97 Room Air 09/01/17 07:55 21 Intake and Output 09/01/17 09/02/17 19:00 07:00 Intake Total 110 ml Balance 110 ml IV Total 110 ml Objective Objective General: No acute distress, awake and alert HEENT: NCAT, sclera anicteric, PERRL, EOMI. Neck: Supple, no significant jugular venous distention, Lungs: Good inspiratory effort, no accessory muscle use, clear to auscultation bilaterally, no Wheeze or Rales. Heart: Regular rate and rhythm, normal S1/S2, no murmurs/gallops Abdomen: soft, nontender, nondistended. Normoactive bowel sounds. / Rectal: Refused and deferred. Extremities: No Cyanosis , clubbing or edema. Neuro: A&O x 3, Able to move all extremities, Left foot dressing. Skin: warm, no rashes or lesions Psych: Normal mood and affect Assessment/Plan Problem List: (1) Osteomyelitis of toe of left foot Assessment & Plan: See podiatry and ID note. Continue vanco, flagyl and cefepime. May require serial I&D. (2) Abnormal liver function test (3) Uncontrolled diabetes mellitus Assessment & Plan: Continue novolog sliding scale. Status: progressing SALIMA SHEFFIELD Sep 01, 2017 15:51
[2017-09-01 16:06] VITALS: BP 123/87
[2017-09-01] MEDS: Vancomycin 1gm in Dextrose 275ml IVPB SCH ×2 (17:07→22:37)
[2017-09-01 20:00] VITALS: BP 145/91
[2017-09-01] MEDS: Dyna-Hex 2% Top Sol 2oz TOPIC SCH (20:00)
[2017-09-02] VITALS: BP 141/71
[2017-09-02] MEDS: Vancomycin 1gm in Dextrose 275ml IVPB SCH ×2 (03:33→09:57)
[2017-09-02 04:00] VITALS: BP 134/85
[2017-09-02] MEDS: Morphine Sulfate 2mg/ml Inj IVP PRN ×4 (04:31→18:00)
[2017-09-02] MEDS: Ampicillin/Sulbactam Sod 3 GM in NS 110 ML IVPB SCH ×4 (05:02→20:32)
[2017-09-02] MEDS: metFORMIN 500mg tab ORAL SCH ×3 (05:58→17:12)
[2017-09-02] MEDS: NovoLOG Insulin Flexpen SUBQ SCH ×4 (06:00→20:31)
[2017-09-02 06:42] LABS: BASOPHILS % (AUTO) 1.3 % (0.0-2.0); EOSINOPHILS % (AUTO) 2.7 % (0.0-3.0); MEAN CORPUSCULAR HEMOGLOBIN 32.6 PG (27.0-31.0); MEAN CORPUSCULAR HGB CONC 35.6 G/DL (32.0-36.0); MEAN CORPUSCULAR VOLUME 92 FL (80-99); MEAN PLATELET VOLUME 7.2 FL (6.5-10.1); MONOCYTES % (AUTO) 8.7 % (1.0-10.0); NEUTROPHILS % (AUTO) 53.3 % (45.0-75.0); PLATELET COUNT 284 K/UL (150-450); RED BLOOD COUNT 4.75 M/UL (4.70-6.10); RED CELL DISTRIBUTION WIDTH 10.7 % (11.6-14.8); WHITE BLOOD COUNT 5.8 K/UL (4.8-10.8)
[2017-09-02 07:22] LABS: ALANINE AMINOTRANSFERASE 123 U/L (12-78); ALBUMIN/GLOBULIN RATIO 0.7 (1.0-2.7); ANION GAP 9 mmol/L (5-15); ASPARTATE AMINO TRANSFERASE 68 U/L (15-37); CARBON DIOXIDE 26 MMOL/L (21-32); CHLORIDE 108 MMOL/L (98-107); CREATININE 0.6 MG/DL (0.55-1.30); GLOMERULAR FILTRATION RATE > 60 mL/min (>60); MAGNESIUM 1.5 MG/DL (1.8-2.4); PHOSPHORUS 3.1 MG/DL (2.5-4.9); POTASSIUM 3.2 MMOL/L (3.5-5.1); SODIUM 143 MMOL/L (136-145); TOTAL PROTEIN 6.3 G/DL (6.4-8.2)
[2017-09-02 08:00] VITALS: BP 105/68
[2017-09-02] MEDS ORDERED: Midazolam 2mg/2ml Inj ONE (08:00)
[2017-09-02] MEDS ORDERED: Lidocaine 1% MPF 10mg/ml 5ml ONE (08:00)
[2017-09-02] MEDS ORDERED: Propofol 200mg/20ml IV ONE (08:00)
[2017-09-02] MEDS: Levemir Flexpen SUBQ SCH (09:10)
[2017-09-02] MEDS: Betadine 4oz Bottle TOPIC SCH ×2 (09:13→17:08)
[2017-09-02] MEDS: Heparin 5000 units/ml inj SUBQ SCH ×2 (09:21→20:30)
--- NOTE | 2017-09-02 10:54 | Infectious Diseases Prog Note ---
Assessment/Plan Assessment/Plan ASSESSMENT: 42 y/o male with: // Left 3rd toe ulcer / gangrene / abscess / osteomyelitis- polymicrobial - SP I&D 08/27 - WCx :+3 E.fecalis ( S Amp, vanco), +3 S. anginosus/ constellatus, +3 S. viridans , <+1 MRSA (S Vancomycin, Bactrim, tetracycline) - XR: Evidence of destruction of the terminal tuft of the third distal phalanx, worrisome process myelitis. Overlying soft tissue defect likely relates to stated clinical history of gangrene. Possible gas bubbles are noted, may indicate open wound or infection with gas-forming organism. Equivocal soft tissue and bony abnormality of the terminal tuft of the second digit. Tissue loss and osteomyelitis in this area not completely excludable. Consider MRI for better characterization - elevated ESR // Left foot cellulitis, improving // Elevated LFTs improving hepatitis panel: neg Abd us: Borderline hepatomegaly and increased hepatic echogenicity suggesting hepatic steatosis or other fibrofatty hepatocellular disease. Please correlate with liver function tests. Mild splenomegaly. Status post cholecystectomy. // Afebrile without leukocytosis // Uncontrolled DM2 - HbA1c 9.8% // NKDA // Full Code PLAN: -Continue IV Unasyn 3g q 6h abx d# and IV Vancomycin abx d # for OM -upon discharge for easier doing regimen, will do IV Vancomycin (dose per pharmacy), Ceftriaxone 2g daily and PO flagyl 500mg q8h -08/31 SP IV Vanco, Cefepime, Flagyl #4 - wound care - weekly CBC, CMP, ESR, CRP while on IV ABX -contact precautions Discussed with RN and Dr Mckeon. Subjective Allergies: Coded Allergies: No Known Allergies (Unverified , 10/08/16) Subjective afebrile no leukocytosius Objective Vital Signs Last 24 Hour Vital Signs Date Time Temp Pulse Resp B/P (MAP) Pulse Ox O2 Delivery O2 Flow Rate FiO2 09/02/17 08:00 97.8 90 20 105/68 96 09/02/17 05:02 97.7 09/02/17 04:00 97.8 83 20 134/85 98 Room Air 09/02/17 00:00 97.7 85 20 141/71 97 Room Air 09/01/17 20:00 99.0 86 20 145/91 98 Room Air 09/01/17 19:01 94 18 Room Air 21 09/01/17 16:06 98.5 89 20 123/87 98 Room Air 09/01/17 12:00 98.0 85 18 131/77 97 Room Air Height (Feet): 5 Height (Inches): 6.00 Weight (Pounds): 165 Objective General Appearance: WD/WN, no acute distress HEENT: normocephalic, atraumatic, anicteric, mucous membranes moist Respiratory/Chest: lungs clear, no respiratory distress, no accessory muscle use Cardiovascular: normal rate, regular rhythm, no JVD Abdomen: normal bowel sounds, soft, non tender, non distended Extremities: other - Left foot with dressing C/D/I Neurologic/Psychiatric: no motor/sensory deficits, alert, oriented x 3, responsive Laboratory Tests Test 09/02/17 06:00 White Blood Count 5.8 K/UL (4.8-10.8) Red Blood Count 4.75 M/UL (4.70-6.10) Hemoglobin 15.5 G/DL (14.2-18.0) Hematocrit 43.6 % (42.0-52.0) Mean Corpuscular Volume 92 FL (80-99) Mean Corpuscular Hemoglobin 32.6 PG (27.0-31.0) H Mean Corpuscular Hemoglobin Concent 35.6 G/DL (32.0-36.0) Red Cell Distribution Width 10.7 % (11.6-14.8) L Platelet Count 284 K/UL (150-450) Mean Platelet Volume 7.2 FL (6.5-10.1) Neutrophils (%) (Auto) 53.3 % (45.0-75.0) Lymphocytes (%) (Auto) 34.0 % (20.0-45.0) Monocytes (%) (Auto) 8.7 % (1.0-10.0) Eosinophils (%) (Auto) 2.7 % (0.0-3.0) Basophils (%) (Auto) 1.3 % (0.0-2.0) Sodium Level 143 MMOL/L (136-145) Potassium Level 3.2 MMOL/L (3.5-5.1) L Chloride Level 108 MMOL/L (98-107) H Carbon Dioxide Level 26 MMOL/L (21-32) Anion Gap 9 mmol/L (5-15) Blood Urea Nitrogen 7 mg/dL (7-18) Creatinine 0.6 MG/DL (0.55-1.30) Estimat Glomerular Filtration Rate > 60 mL/min (>60) Glucose Level 146 MG/DL (74-106) H Calcium Level 8.0 MG/DL (8.5-10.1) L Phosphorus Level 3.1 MG/DL (2.5-4.9) Magnesium Level 1.5 MG/DL (1.8-2.4) L Total Bilirubin 0.2 MG/DL (0.2-1.0) Aspartate Amino Transf (AST/SGOT) 68 U/L (15-37) H Alanine Aminotransferase (ALT/SGPT) 123 U/L (12-78) H Alkaline Phosphatase 143 U/L (46-116) H Total Protein 6.3 G/DL (6.4-8.2) L Albumin 2.5 G/DL (3.4-5.0) L Globulin 3.8 g/dL Albumin/Globulin Ratio 0.7 (1.0-2.7) L Current Medications Medications (Trade) Dose Ordered Sig/Ghazal Route PRN Reason Start Time Stop Time Status Last Admin Dose Admin Acetaminophen (Tylenol) 650 mg Q4H PRN ORAL fever 08/27/17 15:00 09/26/17 14:59 Ampicillin Sodium/ Sulbactam Sodium 3 gm/Sodium Chloride 110 ml @ 220 mls/hr Q6HR IVPB 08/31/17 12:30 09/07/17 12:29 09/02/17 05:02 Chlorhexidine Gluconate (Catina-Hex 2%) 1 applic DAILY@2000 TOPIC 08/30/17 20:00 09/29/17 19:59 09/01/17 20:00 Dextrose (Dextrose 50%) STAT PRN IV Hypoglycemia 08/27/17 15:00 09/26/17 14:59 Heparin Sodium (Porcine) (Heparin 5000 units/ml) 5,000 units EVERY 12 HOURS SUBQ 08/27/17 21:00 09/26/17 20:59 09/02/17 09:21 Insulin Aspart (NovoLOG) BEFORE MEALS AND HS SUBQ 08/27/17 16:30 09/26/17 16:29 09/02/17 06:00 Insulin Detemir (Levemir) 7 units DAILY SUBQ 08/28/17 11:00 09/27/17 10:59 09/02/17 09:10 Metformin HCl (Glucophage) 500 mg BEFORE LUNCH ORAL 08/28/17 11:30 09/27/17 11:29 09/01/17 12:42 Metformin HCl (Glucophage) 1,000 mg BIAC ORAL 08/28/17 06:30 09/27/17 06:29 09/02/17 05:58 Morphine Sulfate (Morphine Sulfate) 2 mg Q4H PRN IVP Moderate Pain (Pain Scale 4-6) 08/27/17 15:00 09/03/17 14:59 09/02/17 08:42 Ondansetron HCl (Zofran) 4 mg Q6H PRN IVP Nausea & Vomiting 08/27/17 15:00 09/26/17 14:59 Polyethylene Glycol (Miralax) 17 gm DAILYPRN PRN ORAL Constipation 08/27/17 15:00 09/26/17 14:59 Potassium Chloride (K-Dur) 40 meq ONCE ONCE ORAL 09/02/17 11:00 09/02/17 11:01 Povidone Iodine (Betadine Susan) 1 applic BID TOPIC 08/28/17 15:00 09/27/17 14:59 09/02/17 09:13 Temazepam (Restoril) 15 mg HSPRN PRN ORAL Insomnia 08/27/17 15:00 09/03/17 14:59 Vancomycin HCl (Vanco rx to dose) 1 ea DAILYPRN PRN MISC Per rx protocol 09/01/17 12:30 10/01/17 12:29 Vancomycin HCl 1 gm/Dextrose 275 ml @ 183.708 mls/hr Q6H IVPB 09/01/17 16:30 09/06/17 16:29 09/02/17 09:57 Tawnya Turner M.D. Sep 02, 2017 10:54
--- NOTE | 2017-09-02 11:45 | Internal Med Progress Note ---
Subjective Date of Service: Sep 02, 2017 Physician Name Salima Sheffield Attending Physician Zachariah Solomon MD Current Medications Medications (Trade) Dose Ordered Sig/Ghazal Route PRN Reason Start Time Stop Time Status Last Admin Dose Admin Acetaminophen (Tylenol) 650 mg Q4H PRN ORAL fever 08/27/17 15:00 09/26/17 14:59 Ampicillin Sodium/ Sulbactam Sodium 3 gm/Sodium Chloride 110 ml @ 220 mls/hr Q6HR IVPB 08/31/17 12:30 09/07/17 12:29 09/02/17 05:02 Chlorhexidine Gluconate (Catina-Hex 2%) 1 applic DAILY@2000 TOPIC 08/30/17 20:00 09/29/17 19:59 09/01/17 20:00 Dextrose (Dextrose 50%) STAT PRN IV Hypoglycemia 08/27/17 15:00 09/26/17 14:59 Heparin Sodium (Porcine) (Heparin 5000 units/ml) 5,000 units EVERY 12 HOURS SUBQ 08/27/17 21:00 09/26/17 20:59 09/02/17 09:21 Insulin Aspart (NovoLOG) BEFORE MEALS AND HS SUBQ 08/27/17 16:30 09/26/17 16:29 09/02/17 06:00 Insulin Detemir (Levemir) 7 units DAILY SUBQ 08/28/17 11:00 09/27/17 10:59 09/02/17 09:10 Metformin HCl (Glucophage) 500 mg BEFORE LUNCH ORAL 08/28/17 11:30 09/27/17 11:29 09/02/17 11:29 Metformin HCl (Glucophage) 1,000 mg BIAC ORAL 08/28/17 06:30 09/27/17 06:29 09/02/17 05:58 Morphine Sulfate (Morphine Sulfate) 2 mg Q4H PRN IVP Moderate Pain (Pain Scale 4-6) 08/27/17 15:00 09/03/17 14:59 09/02/17 08:42 Ondansetron HCl (Zofran) 4 mg Q6H PRN IVP Nausea & Vomiting 08/27/17 15:00 09/26/17 14:59 Polyethylene Glycol (Miralax) 17 gm DAILYPRN PRN ORAL Constipation 08/27/17 15:00 09/26/17 14:59 Povidone Iodine (Betadine Susan) 1 applic BID TOPIC 08/28/17 15:00 09/27/17 14:59 09/02/17 09:13 Temazepam (Restoril) 15 mg HSPRN PRN ORAL Insomnia 08/27/17 15:00 09/03/17 14:59 Vancomycin HCl (Vanco rx to dose) 1 ea DAILYPRN PRN MISC Per rx protocol 09/01/17 12:30 10/01/17 12:29 Vancomycin HCl 1 gm/Dextrose 275 ml @ 183.708 mls/hr Q6H IVPB 09/01/17 16:30 09/06/17 16:29 09/02/17 09:57 Allergies: Coded Allergies: No Known Allergies (Unverified , 10/08/16) ROS Limited/Unobtainable: No Constitutional: Reports: no symptoms HEENT: Reports: no symptoms Cardiovascular: Reports: no symptoms Respiratory: Reports: no symptoms Gastrointestinal/Abdominal: Reports: no symptoms Genitourinary: Reports: no symptoms Neurologic/Psychiatric: Reports: no symptoms Subjective 42 YO M admitted with infection left foot. Now osteomyelitis left 3rd toe. Cover for Int Med-Dr Solomon. Await alf fac placement. Objective Last Vital Signs Date Time Temp Pulse Resp B/P (MAP) Pulse Ox O2 Delivery O2 Flow Rate FiO2 09/02/17 08:00 97.8 90 20 105/68 96 09/02/17 04:00 Room Air 09/01/17 19:01 21 Laboratory Tests Test 09/02/17 06:00 White Blood Count 5.8 K/UL (4.8-10.8) Red Blood Count 4.75 M/UL (4.70-6.10) Hemoglobin 15.5 G/DL (14.2-18.0) Hematocrit 43.6 % (42.0-52.0) Mean Corpuscular Volume 92 FL (80-99) Mean Corpuscular Hemoglobin 32.6 PG (27.0-31.0) H Mean Corpuscular Hemoglobin Concent 35.6 G/DL (32.0-36.0) Red Cell Distribution Width 10.7 % (11.6-14.8) L Platelet Count 284 K/UL (150-450) Mean Platelet Volume 7.2 FL (6.5-10.1) Neutrophils (%) (Auto) 53.3 % (45.0-75.0) Lymphocytes (%) (Auto) 34.0 % (20.0-45.0) Monocytes (%) (Auto) 8.7 % (1.0-10.0) Eosinophils (%) (Auto) 2.7 % (0.0-3.0) Basophils (%) (Auto) 1.3 % (0.0-2.0) Sodium Level 143 MMOL/L (136-145) Potassium Level 3.2 MMOL/L (3.5-5.1) L Chloride Level 108 MMOL/L (98-107) H Carbon Dioxide Level 26 MMOL/L (21-32) Anion Gap 9 mmol/L (5-15) Blood Urea Nitrogen 7 mg/dL (7-18) Creatinine 0.6 MG/DL (0.55-1.30) Estimat Glomerular Filtration Rate > 60 mL/min (>60) Glucose Level 146 MG/DL (74-106) H Calcium Level 8.0 MG/DL (8.5-10.1) L Phosphorus Level 3.1 MG/DL (2.5-4.9) Magnesium Level 1.5 MG/DL (1.8-2.4) L Total Bilirubin 0.2 MG/DL (0.2-1.0) Aspartate Amino Transf (AST/SGOT) 68 U/L (15-37) H Alanine Aminotransferase (ALT/SGPT) 123 U/L (12-78) H Alkaline Phosphatase 143 U/L (46-116) H Total Protein 6.3 G/DL (6.4-8.2) L Albumin 2.5 G/DL (3.4-5.0) L Globulin 3.8 g/dL Albumin/Globulin Ratio 0.7 (1.0-2.7) L Objective Objective General: No acute distress, awake and alert HEENT: NCAT, sclera anicteric, PERRL, EOMI. Neck: Supple, no significant jugular venous distention, Lungs: Good inspiratory effort, no accessory muscle use, clear to auscultation bilaterally, no Wheeze or Rales. Heart: Regular rate and rhythm, normal S1/S2, no murmurs/gallops Abdomen: soft, nontender, nondistended. Normoactive bowel sounds. / Rectal: Refused and deferred. Extremities: No Cyanosis , clubbing or edema. Neuro: A&O x 3, Able to move all extremities, Left foot dressing. Skin: warm, no rashes or lesions Psych: Normal mood and affect Assessment/Plan Problem List: (1) Osteomyelitis of toe of left foot Assessment & Plan: See podiatry and ID note. Continue vanco, flagyl and cefepime. May require serial I&D. (2) Abnormal liver function test (3) Uncontrolled diabetes mellitus Assessment & Plan: Continue novolog sliding scale. Status: not improved Assessment/Plan Discharge plan: alf fac for IV antibiotic for 42 days (D# ) SALIMA SHEFFIELD Sep 02, 2017 11:45
[2017-09-02 12:00] VITALS: BP 136/86
--- NOTE | 2017-09-02 13:45 | Pulmonology Progress Note ---
Assessment/Plan Problems: (1) Osteomyelitis of toe of left foot (2) Abnormal liver function test (3) Gangrene Assessment/Plan wound care IV abx podiatry dc planning to skilled facility Subjective ROS Limited/Unobtainable: No Constitutional: Reports: no symptoms Respiratory: Reports: no symptoms Allergies: Coded Allergies: No Known Allergies (Unverified , 10/08/16) Objective Last 24 Hour Vital Signs Date Time Temp Pulse Resp B/P (MAP) Pulse Ox O2 Delivery O2 Flow Rate FiO2 09/02/17 13:05 86 18 Room Air 21 09/02/17 12:00 98.1 20 20 136/86 97 09/02/17 08:00 97.8 90 20 105/68 96 09/02/17 05:02 97.7 09/02/17 04:00 97.8 83 20 134/85 98 Room Air 09/02/17 00:00 97.7 85 20 141/71 97 Room Air 09/01/17 20:00 99.0 86 20 145/91 98 Room Air 09/01/17 19:01 94 18 Room Air 21 09/01/17 16:06 98.5 89 20 123/87 98 Room Air Objective General Appearance: WD/WN HEENT: normocephalic, anicteric Cardiovascular: normal peripheral pulses, normal rate Abdomen: normal bowel sounds, no organomegaly Genitourinary: normal external genitalia Extremities: no clubbing, clean dressing Skin: no lesions Lymphatic: no neck adenopathy Laboratory Tests 09/02/17 06:00: White Blood Count 5.8, Red Blood Count 4.75, Hemoglobin 15.5, Hematocrit 43.6, Mean Corpuscular Volume 92, Mean Corpuscular Hemoglobin 32.6H, Mean Corpuscular Hemoglobin Concent 35.6, Red Cell Distribution Width 10.7L, Platelet Count 284, Mean Platelet Volume 7.2, Neutrophils (%) (Auto) 53.3, Lymphocytes (%) (Auto) 34.0, Monocytes (%) (Auto) 8.7, Eosinophils (%) (Auto) 2.7, Basophils (%) (Auto ) 1.3, Sodium Level 143, Potassium Level 3.2L, Chloride Level 108H, Carbon Dioxide Level 26, Anion Gap 9, Blood Urea Nitrogen 7, Creatinine 0.6, Estimat Glomerular Filtration Rate > 60, Glucose Level 146H, Calcium Level 8.0L, Phosphorus Level 3.1, Magnesium Level 1.5L, Total Bilirubin 0.2, Aspartate Amino Transf (AST/SGOT) 68H, Alanine Aminotransferase (ALT/SGPT) 123H, Alkaline Phosphatase 143H, Total Protein 6.3L, Albumin 2.5L, Globulin 3.8, Albumin/ Globulin Ratio 0.7L Current Medications Medications (Trade) Dose Ordered Sig/Ghazal Route PRN Reason Start Time Stop Time Status Last Admin Dose Admin Acetaminophen (Tylenol) 650 mg Q4H PRN ORAL fever 08/27/17 15:00 09/26/17 14:59 Ampicillin Sodium/ Sulbactam Sodium 3 gm/Sodium Chloride 110 ml @ 220 mls/hr Q6HR IVPB 08/31/17 12:30 09/07/17 12:29 09/02/17 12:41 Chlorhexidine Gluconate (Catina-Hex 2%) 1 applic DAILY@2000 TOPIC 08/30/17 20:00 09/29/17 19:59 09/01/17 20:00 Dextrose (Dextrose 50%) STAT PRN IV Hypoglycemia 08/27/17 15:00 09/26/17 14:59 Heparin Sodium (Porcine) (Heparin 5000 units/ml) 5,000 units EVERY 12 HOURS SUBQ 08/27/17 21:00 09/26/17 20:59 09/02/17 09:21 Insulin Aspart (NovoLOG) BEFORE MEALS AND HS SUBQ 08/27/17 16:30 09/26/17 16:29 09/02/17 12:16 Insulin Detemir (Levemir) 7 units DAILY SUBQ 08/28/17 11:00 09/27/17 10:59 09/02/17 09:10 Metformin HCl (Glucophage) 500 mg BEFORE LUNCH ORAL 08/28/17 11:30 09/27/17 11:29 09/02/17 11:29 Metformin HCl (Glucophage) 1,000 mg BIAC ORAL 08/28/17 06:30 09/27/17 06:29 09/02/17 05:58 Morphine Sulfate (Morphine Sulfate) 2 mg Q4H PRN IVP Moderate Pain (Pain Scale 4-6) 08/27/17 15:00 09/03/17 14:59 09/02/17 08:42 Ondansetron HCl (Zofran) 4 mg Q6H PRN IVP Nausea & Vomiting 08/27/17 15:00 09/26/17 14:59 Polyethylene Glycol (Miralax) 17 gm DAILYPRN PRN ORAL Constipation 08/27/17 15:00 09/26/17 14:59 Povidone Iodine (Betadine Susan) 1 applic BID TOPIC 08/28/17 15:00 09/27/17 14:59 09/02/17 09:13 Temazepam (Restoril) 15 mg HSPRN PRN ORAL Insomnia 08/27/17 15:00 09/03/17 14:59 Vancomycin HCl (Vanco rx to dose) 1 ea DAILYPRN PRN MISC Per rx protocol 09/01/17 12:30 10/01/17 12:29 Vancomycin HCl 1 gm/Dextrose 275 ml @ 183.708 mls/hr Q6H IVPB 09/01/17 16:30 09/06/17 16:29 09/02/17 09:57 CESAR SRINIVASAN Sep 02, 2017 13:45
[2017-09-02 16:00] VITALS: BP 104/65
[2017-09-02] MEDS: Vancomycin 1.5gm/D5W 250ml 250 ML IVPB SCH (17:55)
[2017-09-02 20:00] VITALS: BP 122/80
[2017-09-02] MEDS: Dyna-Hex 2% Top Sol 2oz TOPIC SCH (20:28)
[2017-09-03] VITALS: BP 117/71
[2017-09-03] MEDS: Vancomycin 1.5gm/D5W 250ml 250 ML IVPB SCH ×3 (01:36→18:46)
[2017-09-03 04:41] VITALS: BP 125/85
[2017-09-03] MEDS: Ampicillin/Sulbactam Sod 3 GM in NS 110 ML IVPB SCH ×3 (05:38→17:47)
[2017-09-03] MEDS: metFORMIN 500mg tab ORAL SCH ×3 (05:39→16:51)
[2017-09-03] MEDS: NovoLOG Insulin Flexpen SUBQ SCH ×4 (05:40→21:57)
[2017-09-03] MEDS: Morphine Sulfate 2mg/ml Inj IVP PRN ×3 (05:54→18:46)
[2017-09-03 07:19] LABS: BASOPHILS % (AUTO) 1.3 % (0.0-2.0); EOSINOPHILS % (AUTO) 3.1 % (0.0-3.0); LYMPHOCYTES % (AUTO) 35.6 % (20.0-45.0); MEAN CORPUSCULAR HEMOGLOBIN 32.3 PG (27.0-31.0); MEAN CORPUSCULAR HGB CONC 35.3 G/DL (32.0-36.0); MEAN CORPUSCULAR VOLUME 92 FL (80-99); MEAN PLATELET VOLUME 7.2 FL (6.5-10.1); MONOCYTES % (AUTO) 7.3 % (1.0-10.0); NEUTROPHILS % (AUTO) 52.7 % (45.0-75.0); PLATELET COUNT 276 K/UL (150-450); RED BLOOD COUNT 4.82 M/UL (4.70-6.10); RED CELL DISTRIBUTION WIDTH 10.9 % (11.6-14.8); WHITE BLOOD COUNT 5.3 K/UL (4.8-10.8)
[2017-09-03 07:42] LABS: ANION GAP 7 mmol/L (5-15); CALCIUM 9.1 MG/DL (8.5-10.1); CARBON DIOXIDE 28 MMOL/L (21-32); CHLORIDE 104 MMOL/L (98-107); CREATININE 0.6 MG/DL (0.55-1.30); GLOMERULAR FILTRATION RATE > 60 mL/min (>60); POTASSIUM 3.7 MMOL/L (3.5-5.1); SODIUM 139 MMOL/L (136-145)
[2017-09-03] MEDS: Betadine 4oz Bottle TOPIC SCH ×2 (08:19→17:46)
[2017-09-03] MEDS: Heparin 5000 units/ml inj SUBQ SCH ×2 (08:20→21:58)
[2017-09-03] MEDS: Levemir Flexpen SUBQ SCH (08:21)
[2017-09-03 08:36] VITALS: BP 93/65
--- NOTE | 2017-09-03 10:29 | Infectious Diseases Prog Note ---
Assessment/Plan Assessment/Plan ASSESSMENT: 42 y/o male with: // Left 3rd toe ulcer / gangrene / abscess / osteomyelitis- polymicrobial - SP I&D 08/27 - WCx :+3 E.fecalis ( S Amp, vanco), +3 S. anginosus/ constellatus, +3 S. viridans , <+1 MRSA (S Vancomycin, Bactrim, tetracycline) - XR: Evidence of destruction of the terminal tuft of the third distal phalanx, worrisome process myelitis. Overlying soft tissue defect likely relates to stated clinical history of gangrene. Possible gas bubbles are noted, may indicate open wound or infection with gas-forming organism. Equivocal soft tissue and bony abnormality of the terminal tuft of the second digit. Tissue loss and osteomyelitis in this area not completely excludable. Consider MRI for better characterization - elevated ESR // Left foot cellulitis, improving // Elevated LFTs improving hepatitis panel: neg Abd us: Borderline hepatomegaly and increased hepatic echogenicity suggesting hepatic steatosis or other fibrofatty hepatocellular disease. Please correlate with liver function tests. Mild splenomegaly. Status post cholecystectomy. // Afebrile without leukocytosis // Uncontrolled DM2 - HbA1c 9.8% // NKDA // Full Code PLAN: -Continue IV Unasyn 3g q 6h abx d# and IV Vancomycin abx d # for OM -upon discharge for easier doing regimen, will do IV Vancomycin (dose per pharmacy), Ceftriaxone 2g daily and PO flagyl 500mg q8h -08/31 SP IV Vanco, Cefepime, Flagyl #4 - wound care - weekly CBC, CMP, ESR, CRP while on IV ABX -contact precautions Discussed with RN and Dr Mckeon. Subjective Allergies: Coded Allergies: No Known Allergies (Unverified , 10/08/16) Subjective afebrile no leukocytosis awaiting dispo Objective Vital Signs Last 24 Hour Vital Signs Date Time Temp Pulse Resp B/P (MAP) Pulse Ox O2 Delivery O2 Flow Rate FiO2 09/03/17 08:36 98.1 85 20 93/65 98 Room Air 09/03/17 08:10 83 18 Room Air 21 09/03/17 04:41 98.2 82 20 125/85 99 09/03/17 00:00 97.5 85 19 117/71 96 Room Air 09/02/17 20:00 97.7 86 19 122/80 98 Room Air 09/02/17 19:00 84 18 Room Air 21 09/02/17 16:00 Room Air 09/02/17 16:00 98.2 80 20 104/65 99 09/02/17 13:05 86 18 Room Air 21 09/02/17 12:00 Room Air 09/02/17 12:00 98.1 20 20 136/86 97 Height (Feet): 5 Height (Inches): 6.00 Weight (Pounds): 165 Objective General Appearance: WD/WN, no acute distress HEENT: normocephalic, atraumatic, anicteric, mucous membranes moist Respiratory/Chest: lungs clear, no respiratory distress, no accessory muscle use Cardiovascular: normal rate, regular rhythm, no JVD Abdomen: normal bowel sounds, soft, non tender, non distended Extremities: left 3rd toe with improved soft tissue swelling/cellulitis, distal tip gangrenous Neurologic/Psychiatric: no motor/sensory deficits, alert, oriented x 3, responsive Laboratory Tests Test 09/02/17 15:30 09/03/17 05:30 Vancomycin Level Trough 10.3 ug/mL (5.0-12.0) White Blood Count 5.3 K/UL (4.8-10.8) Red Blood Count 4.82 M/UL (4.70-6.10) Hemoglobin 15.6 G/DL (14.2-18.0) Hematocrit 44.1 % (42.0-52.0) Mean Corpuscular Volume 92 FL (80-99) Mean Corpuscular Hemoglobin 32.3 PG (27.0-31.0) H Mean Corpuscular Hemoglobin Concent 35.3 G/DL (32.0-36.0) Red Cell Distribution Width 10.9 % (11.6-14.8) L Platelet Count 276 K/UL (150-450) Mean Platelet Volume 7.2 FL (6.5-10.1) Neutrophils (%) (Auto) 52.7 % (45.0-75.0) Lymphocytes (%) (Auto) 35.6 % (20.0-45.0) Monocytes (%) (Auto) 7.3 % (1.0-10.0) Eosinophils (%) (Auto) 3.1 % (0.0-3.0) H Basophils (%) (Auto) 1.3 % (0.0-2.0) Sodium Level 139 MMOL/L (136-145) Potassium Level 3.7 MMOL/L (3.5-5.1) Chloride Level 104 MMOL/L (98-107) Carbon Dioxide Level 28 MMOL/L (21-32) Anion Gap 7 mmol/L (5-15) Blood Urea Nitrogen 7 mg/dL (7-18) Creatinine 0.6 MG/DL (0.55-1.30) Estimat Glomerular Filtration Rate > 60 mL/min (>60) Glucose Level 123 MG/DL (74-106) H Calcium Level 9.1 MG/DL (8.5-10.1) Current Medications Medications (Trade) Dose Ordered Sig/Ghazal Route PRN Reason Start Time Stop Time Status Last Admin Dose Admin Acetaminophen (Tylenol) 650 mg Q4H PRN ORAL fever 08/27/17 15:00 09/26/17 14:59 Ampicillin Sodium/ Sulbactam Sodium 3 gm/Sodium Chloride 110 ml @ 220 mls/hr Q6HR IVPB 08/31/17 12:30 09/07/17 12:29 09/03/17 05:38 Chlorhexidine Gluconate (Catina-Hex 2%) 1 applic DAILY@1999 TOPIC 08/30/17 20:00 09/29/17 19:59 09/02/17 20:28 Dextrose (Dextrose 50%) STAT PRN IV Hypoglycemia 08/27/17 15:00 09/26/17 14:59 Heparin Sodium (Porcine) (Heparin 5000 units/ml) 5,000 units EVERY 12 HOURS SUBQ 08/27/17 21:00 09/26/17 20:59 09/03/17 08:20 Insulin Aspart (NovoLOG) BEFORE MEALS AND HS SUBQ 08/27/17 16:30 09/26/17 16:29 09/03/17 05:40 Insulin Detemir (Levemir) 7 units DAILY SUBQ 08/28/17 11:00 09/27/17 10:59 09/03/17 08:21 Metformin HCl (Glucophage) 500 mg BEFORE LUNCH ORAL 08/28/17 11:30 09/27/17 11:29 09/02/17 11:29 Metformin HCl (Glucophage) 1,000 mg BIAC ORAL 08/28/17 06:30 09/27/17 06:29 09/03/17 05:39 Morphine Sulfate (Morphine Sulfate) 2 mg Q4H PRN IVP Moderate Pain (Pain Scale 4-6) 08/27/17 15:00 09/03/17 14:59 09/03/17 05:54 Ondansetron HCl (Zofran) 4 mg Q6H PRN IVP Nausea & Vomiting 08/27/17 15:00 09/26/17 14:59 Polyethylene Glycol (Miralax) 17 gm DAILYPRN PRN ORAL Constipation 08/27/17 15:00 09/26/17 14:59 Povidone Iodine (Betadine Susan) 1 applic BID TOPIC 08/28/17 15:00 09/27/17 14:59 09/03/17 08:19 Temazepam (Restoril) 15 mg HSPRN PRN ORAL Insomnia 08/27/17 15:00 09/03/17 14:59 Vancomycin HCl (Vanco rx to dose) 1 ea DAILYPRN PRN MISC Per rx protocol 09/01/17 12:30 10/01/17 12:29 Vancomycin HCl/ Dextrose 250 ml @ 125 mls/hr Q8HR@0200,1000,1800 IVPB 09/02/17 18:00 09/07/17 17:59 09/03/17 01:36 Tawnya Turner M.D. Sep 03, 2017 10:29
--- NOTE | 2017-09-03 11:22 | Pulmonology Progress Note ---
Assessment/Plan Problems: (1) Osteomyelitis of toe of left foot (2) Abnormal liver function test (3) Gangrene Assessment/Plan wound care IV abx podiatry check cultures all reviewed improving slowly Subjective ROS Limited/Unobtainable: No Allergies: Coded Allergies: No Known Allergies (Unverified , 10/08/16) Objective Last 24 Hour Vital Signs Date Time Temp Pulse Resp B/P (MAP) Pulse Ox O2 Delivery O2 Flow Rate FiO2 09/03/17 08:36 98.1 85 20 93/65 98 Room Air 09/03/17 08:10 83 18 Room Air 09/03/17 04:41 98.2 82 20 125/85 99 09/03/17 00:00 97.5 85 19 117/71 96 Room Air 09/02/17 20:00 97.7 86 19 122/80 98 Room Air 09/02/17 19:00 84 18 Room Air 09/02/17 16:00 Room Air 09/02/17 16:00 98.2 80 20 104/65 99 09/02/17 13:05 86 18 Room Air 09/02/17 12:00 Room Air 09/02/17 12:00 98.1 20 20 136/86 97 Intake and Output 09/03/17 09/04/17 19:00 07:00 Intake Total 480 ml Balance 480 ml Intake Oral 480 ml Objective General Appearance: WD/WN HEENT: normocephalic, anicteric Cardiovascular: normal peripheral pulses, normal rate Abdomen: normal bowel sounds, no organomegaly Genitourinary: normal external genitalia Extremities: no clubbing, clean dressing Skin: no lesions Lymphatic: no neck adenopathy Laboratory Tests 09/02/17 15:30: Vancomycin Level Trough 10.3 09/03/17 05:30: White Blood Count 5.3, Red Blood Count 4.82, Hemoglobin 15.6, Hematocrit 44.1, Mean Corpuscular Volume 92, Mean Corpuscular Hemoglobin 32.3H, Mean Corpuscular Hemoglobin Concent 35.3, Red Cell Distribution Width 10.9L, Platelet Count 276, Mean Platelet Volume 7.2, Neutrophils (%) (Auto) 52.7, Lymphocytes (%) (Auto) 35.6, Monocytes (%) (Auto) 7.3, Eosinophils (%) (Auto) 3.1H, Basophils (%) (Auto ) 1.3, Sodium Level 139, Potassium Level 3.7, Chloride Level 104, Carbon Dioxide Level 28, Anion Gap 7, Blood Urea Nitrogen 7, Creatinine 0.6, Estimat Glomerular Filtration Rate > 60, Glucose Level 123H, Calcium Level 9.1 Current Medications Medications (Trade) Dose Ordered Sig/Ghazal Route PRN Reason Start Time Stop Time Status Last Admin Dose Admin Acetaminophen (Tylenol) 650 mg Q4H PRN ORAL fever 08/27/17 15:00 09/26/17 14:59 Ampicillin Sodium/ Sulbactam Sodium 3 gm/Sodium Chloride 110 ml @ 220 mls/hr Q6HR IVPB 08/31/17 12:30 09/07/17 12:29 09/03/17 05:38 Chlorhexidine Gluconate (Catina-Hex 2%) 1 applic DAILY@2000 TOPIC 08/30/17 20:00 09/29/17 19:59 09/02/17 20:28 Dextrose (Dextrose 50%) STAT PRN IV Hypoglycemia 08/27/17 15:00 09/26/17 14:59 Heparin Sodium (Porcine) (Heparin 5000 units/ml) 5,000 units EVERY 12 HOURS SUBQ 08/27/17 21:00 09/26/17 20:59 09/03/17 08:20 Insulin Aspart (NovoLOG) BEFORE MEALS AND HS SUBQ 08/27/17 16:30 09/26/17 16:29 09/03/17 05:40 Insulin Detemir (Levemir) 7 units DAILY SUBQ 08/28/17 11:00 09/27/17 10:59 09/03/17 08:21 Metformin HCl (Glucophage) 500 mg BEFORE LUNCH ORAL 08/28/17 11:30 09/27/17 11:29 09/02/17 11:29 Metformin HCl (Glucophage) 1,000 mg BIAC ORAL 08/28/17 06:30 09/27/17 06:29 09/03/17 05:39 Morphine Sulfate (Morphine Sulfate) 2 mg Q4H PRN IVP Moderate Pain (Pain Scale 4-6) 08/27/17 15:00 09/03/17 14:59 09/03/17 05:54 Ondansetron HCl (Zofran) 4 mg Q6H PRN IVP Nausea & Vomiting 08/27/17 15:00 12/16/17 14:59 Polyethylene Glycol (Miralax) 17 gm DAILYPRN PRN ORAL Constipation 08/27/17 15:00 09/26/17 14:59 Povidone Iodine (Betadine Susan) 1 applic BID TOPIC 08/28/17 15:00 09/27/17 14:59 09/03/17 08:19 Temazepam (Restoril) 15 mg HSPRN PRN ORAL Insomnia 08/27/17 15:00 09/03/17 14:59 Vancomycin HCl (Vanco rx to dose) 1 ea DAILYPRN PRN MISC Per rx protocol 09/01/17 12:30 10/01/17 12:29 Vancomycin HCl/ Dextrose 250 ml @ 125 mls/hr Q8HR@0200,1000,1800 IVPB 09/02/17 18:00 09/07/17 17:59 09/03/17 11:14 CESAR SRINIVASAN Sep 03, 2017 11:22
[2017-09-03 11:45] VITALS: BP 131/82
--- NOTE | 2017-09-03 12:38 | Internal Med Progress Note ---
Subjective Date of Service: Sep 03, 2017 Physician Name Salima Sheffield Attending Physician Zachariah Solomon MD Current Medications Medications (Trade) Dose Ordered Sig/Ghazal Route PRN Reason Start Time Stop Time Status Last Admin Dose Admin Acetaminophen (Tylenol) 650 mg Q4H PRN ORAL fever 08/27/17 15:00 09/26/17 14:59 Ampicillin Sodium/ Sulbactam Sodium 3 gm/Sodium Chloride 110 ml @ 220 mls/hr Q6HR IVPB 08/31/17 12:30 09/07/17 12:29 09/03/17 05:38 Chlorhexidine Gluconate (Catina-Hex 2%) 1 applic DAILY@2000 TOPIC 08/30/17 20:00 09/29/17 19:59 09/02/17 20:28 Dextrose (Dextrose 50%) STAT PRN IV Hypoglycemia 08/27/17 15:00 09/26/17 14:59 Heparin Sodium (Porcine) (Heparin 5000 units/ml) 5,000 units EVERY 12 HOURS SUBQ 08/27/17 21:00 09/26/17 20:59 09/03/17 08:20 Insulin Aspart (NovoLOG) BEFORE MEALS AND HS SUBQ 08/27/17 16:30 09/26/17 16:29 09/03/17 05:40 Insulin Detemir (Levemir) 7 units DAILY SUBQ 08/28/17 11:00 09/27/17 10:59 09/03/17 08:21 Metformin HCl (Glucophage) 500 mg BEFORE LUNCH ORAL 08/28/17 11:30 09/27/17 11:29 09/02/17 11:29 Metformin HCl (Glucophage) 1,000 mg BIAC ORAL 08/28/17 06:30 09/27/17 06:29 09/03/17 05:39 Morphine Sulfate (Morphine Sulfate) 2 mg Q4H PRN IVP Moderate Pain (Pain Scale 4-6) 08/27/17 15:00 09/03/17 14:59 09/03/17 11:49 Ondansetron HCl (Zofran) 4 mg Q6H PRN IVP Nausea & Vomiting 08/27/17 15:00 09/26/17 14:59 Polyethylene Glycol (Miralax) 17 gm DAILYPRN PRN ORAL Constipation 08/27/17 15:00 09/26/17 14:59 Povidone Iodine (Betadine Susan) 1 applic BID TOPIC 08/28/17 15:00 09/27/17 14:59 09/03/17 08:19 Temazepam (Restoril) 15 mg HSPRN PRN ORAL Insomnia 08/27/17 15:00 09/03/17 14:59 Vancomycin HCl (Vanco rx to dose) 1 ea DAILYPRN PRN MISC Per rx protocol 09/01/17 12:30 10/01/17 12:29 Vancomycin HCl/ Dextrose 250 ml @ 125 mls/hr Q8HR@0200,1000,1800 IVPB 09/02/17 18:00 09/07/17 17:59 09/03/17 11:14 Allergies: Coded Allergies: No Known Allergies (Unverified , 10/08/16) ROS Limited/Unobtainable: No Constitutional: Reports: no symptoms HEENT: Reports: no symptoms Cardiovascular: Reports: no symptoms Respiratory: Reports: no symptoms Gastrointestinal/Abdominal: Reports: no symptoms Genitourinary: Reports: no symptoms Neurologic/Psychiatric: Reports: no symptoms Subjective 42 YO M admitted with infection left foot. Now osteomyelitis left 3rd toe. Cover for Int Med-Dr Solomon. Await [facility] fac [facility]. Objective Last Vital Signs Date Time Temp Pulse Resp B/P (MAP) Pulse Ox O2 Delivery O2 Flow Rate FiO2 09/03/17 11:45 97.9 83 20 131/82 98 09/03/17 08:36 Room Air 09/03/17 08:10 21 Laboratory Tests Test 09/02/17 15:30 09/03/17 05:30 Vancomycin Level Trough 10.3 ug/mL (5.0-12.0) White Blood Count 5.3 K/UL (4.8-10.8) Red Blood Count 4.82 M/UL (4.70-6.10) Hemoglobin 15.6 G/DL (14.2-18.0) Hematocrit 44.1 % (42.0-52.0) Mean Corpuscular Volume 92 FL (80-99) Mean Corpuscular Hemoglobin 32.3 PG (27.0-31.0) H Mean Corpuscular Hemoglobin Concent 35.3 G/DL (32.0-36.0) Red Cell Distribution Width 10.9 % (11.6-14.8) L Platelet Count 276 K/UL (150-450) Mean Platelet Volume 7.2 FL (6.5-10.1) Neutrophils (%) (Auto) 52.7 % (45.0-75.0) Lymphocytes (%) (Auto) 35.6 % (20.0-45.0) Monocytes (%) (Auto) 7.3 % (1.0-10.0) Eosinophils (%) (Auto) 3.1 % (0.0-3.0) H Basophils (%) (Auto) 1.3 % (0.0-2.0) Sodium Level 139 MMOL/L (136-145) Potassium Level 3.7 MMOL/L (3.5-5.1) Chloride Level 104 MMOL/L (98-107) Carbon Dioxide Level 28 MMOL/L (21-32) Anion Gap 7 mmol/L (5-15) Blood Urea Nitrogen 7 mg/dL (7-18) Creatinine 0.6 MG/DL (0.55-1.30) Estimat Glomerular Filtration Rate > 60 mL/min (>60) Glucose Level 123 MG/DL (74-106) H Calcium Level 9.1 MG/DL (8.5-10.1) Intake and Output 09/03/17 09/04/17 19:00 07:00 Intake Total 480 ml Balance 480 ml Intake Oral 480 ml Objective Objective General: No acute distress, awake and alert HEENT: NCAT, sclera anicteric, PERRL, EOMI. Neck: Supple, no significant jugular venous distention, Lungs: Good inspiratory effort, no accessory muscle use, clear to auscultation bilaterally, no Wheeze or Rales. Heart: Regular rate and rhythm, normal S1/S2, no murmurs/gallops Abdomen: soft, nontender, nondistended. Normoactive bowel sounds. / Rectal: Refused and deferred. Extremities: No Cyanosis , clubbing or edema. Neuro: A&O x 3, Able to move all extremities, Left foot dressing. Skin: warm, no rashes or lesions Psych: Normal mood and affect Assessment/Plan Problem List: (1) Osteomyelitis of toe of left foot Assessment & Plan: See podiatry and ID note. Continue vanco, flagyl and cefepime. May require serial I&D. (2) Abnormal liver function test (3) Uncontrolled diabetes mellitus Assessment & Plan: Continue novolog sliding scale. Assessment/Plan Discharge plan: Patient uninsured; [facility] home health for IV antibiotic for 42 days (D# ) SALIMA SHEFFIELD Sep 03, 2017 12:38
[2017-09-03 15:43] VITALS: BP 125/79
[2017-09-03] MEDS ORDERED: NS 275ml ONE ×2 (16:35→16:39)
[2017-09-03] MEDS ORDERED: Tubing IV Secondary IV ONE (16:39)
[2017-09-03 20:00] VITALS: BP 151/95
[2017-09-03] MEDS: Dyna-Hex 2% Top Sol 2oz TOPIC SCH (20:00)
--- NOTE | 2017-09-03 23:13 | Diagnostic Imaging Report ---
APPROVED REPORT CPT Code: 74368 Present Symptoms Comments: Pain and swelling Diabetic wound in Right toe and left foot BILATERAL: Imaging reveals a patent deep venous system bilaterally. There is no evidence of thrombus within the femoral, popliteal or tibial segments. The greater saphenous veins are also within normal limits. Doppler indicates normal spontaneous flow within these segments.
[2017-09-04] VITALS: BP 139/81
[2017-09-04] MEDS: Ampicillin/Sulbactam Sod 3 GM in NS 110 ML IVPB SCH ×5 (00:44→23:53)
[2017-09-04] MEDS: Vancomycin 1.5gm/D5W 250ml 250 ML IVPB SCH ×3 (02:38→18:21)
[2017-09-04 03:41] VITALS: BP 95/73
[2017-09-04 04:44] LABS: BASOPHILS % (AUTO) 1.1 % (0.0-2.0); LYMPHOCYTES % (AUTO) 38.6 % (20.0-45.0); MEAN CORPUSCULAR HEMOGLOBIN 31.8 PG (27.0-31.0); MEAN CORPUSCULAR HGB CONC 35.5 G/DL (32.0-36.0); MEAN CORPUSCULAR VOLUME 90 FL (80-99); MEAN PLATELET VOLUME 7.8 FL (6.5-10.1); MONOCYTES % (AUTO) 9.5 % (1.0-10.0); NEUTROPHILS % (AUTO) 47.8 % (45.0-75.0); PLATELET COUNT 291 K/UL (150-450); RED BLOOD COUNT 4.94 M/UL (4.70-6.10); RED CELL DISTRIBUTION WIDTH 10.6 % (11.6-14.8); WHITE BLOOD COUNT 5.5 K/UL (4.8-10.8)
[2017-09-04 05:12] LABS: ALANINE AMINOTRANSFERASE 103 U/L (12-78); ALBUMIN/GLOBULIN RATIO 0.7 (1.0-2.7); ANION GAP 3 mmol/L (5-15); ASPARTATE AMINO TRANSFERASE 38 U/L (15-37); CALCIUM 9.1 MG/DL (8.5-10.1); CARBON DIOXIDE 32 MMOL/L (21-32); CHLORIDE 104 MMOL/L (98-107); CREATININE 0.7 MG/DL (0.55-1.30); CRP QUANT < 0.4 mg/dL (0.00-0.90); GLOMERULAR FILTRATION RATE > 60 mL/min (>60); MAGNESIUM 1.6 MG/DL (1.8-2.4); PHOSPHORUS 4.5 MG/DL (2.5-4.9); POTASSIUM 3.4 MMOL/L (3.5-5.1); SODIUM 139 MMOL/L (136-145); TOTAL PROTEIN 7.1 G/DL (6.4-8.2)
[2017-09-04 06:00] LABS: ERYTHROCYTE SEDIMENTATION RATE 52 MM/HR (0-15)
[2017-09-04] MEDS: metFORMIN 500mg tab ORAL SCH ×3 (06:36→16:54)
[2017-09-04] MEDS: NovoLOG Insulin Flexpen SUBQ SCH ×4 (06:41→20:34)
[2017-09-04] MEDS: Morphine Sulfate 2mg/ml Inj IVP PRN ×4 (07:35→21:59)
[2017-09-04 08:00] VITALS: BP 122/66
[2017-09-04] MEDS: Betadine 4oz Bottle TOPIC SCH ×2 (08:42→17:26)
[2017-09-04] MEDS: Levemir Flexpen SUBQ SCH (08:44)
[2017-09-04] MEDS: Heparin 5000 units/ml inj SUBQ SCH ×2 (08:44→20:38)
--- NOTE | 2017-09-04 09:38 | Infectious Diseases Prog Note ---
Assessment/Plan Assessment/Plan ASSESSMENT: 42 y/o male with: // Left 3rd toe ulcer / gangrene / abscess / osteomyelitis- polymicrobial - SP I&D 08/27 - WCx :+3 E.fecalis ( S Amp, vanco), +3 S. anginosus/ constellatus, +3 S. viridans , <+1 MRSA (S Vancomycin, Bactrim, tetracycline) - XR: Evidence of destruction of the terminal tuft of the third distal phalanx, worrisome process myelitis. Overlying soft tissue defect likely relates to stated clinical history of gangrene. Possible gas bubbles are noted, may indicate open wound or infection with gas-forming organism. Equivocal soft tissue and bony abnormality of the terminal tuft of the second digit. Tissue loss and osteomyelitis in this area not completely excludable. Consider MRI for better characterization - elevated ESR // Left foot cellulitis, improving // Elevated LFTs improving hepatitis panel: neg Abd us: Borderline hepatomegaly and increased hepatic echogenicity suggesting hepatic steatosis or other fibrofatty hepatocellular disease. Please correlate with liver function tests. Mild splenomegaly. Status post cholecystectomy. // Afebrile without leukocytosis // Uncontrolled DM2 - HbA1c 9.8% // NKDA // Full Code PLAN: -Continue IV Unasyn 3g q 6h abx d# and IV Vancomycin abx d # for OM -upon discharge for easier doing regimen, will do IV Vancomycin (dose per pharmacy), Ceftriaxone 2g daily and PO flagyl 500mg q8h -08/31 SP IV Vanco, Cefepime, Flagyl #4 - wound care - weekly CBC, CMP, ESR, CRP while on IV ABX -contact precautions Discussed with RN Subjective Allergies: Coded Allergies: No Known Allergies (Unverified , 10/08/16) Subjective afebrile no leukocytosis awaiting dispo Objective Vital Signs Last 24 Hour Vital Signs Date Time Temp Pulse Resp B/P (MAP) Pulse Ox O2 Delivery O2 Flow Rate FiO2 09/04/17 08:13 83 18 Room Air 21 09/04/17 08:00 99.1 88 20 122/66 Room Air 09/04/17 03:41 96.3 84 20 95/73 97 Room Air 09/04/17 00:00 98.4 79 21 139/81 99 Room Air 09/03/17 20:00 98.6 84 22 151/95 98 Room Air 09/03/17 19:53 86 18 Room Air 21 09/03/17 15:43 98.1 84 20 125/79 98 09/03/17 12:00 98 Room Air 09/03/17 11:45 97.9 83 20 131/82 98 Height (Feet): 5 Height (Inches): 6.00 Weight (Pounds): 165 Objective General Appearance: WD/WN, no acute distress HEENT: normocephalic, atraumatic, anicteric, mucous membranes moist Respiratory/Chest: lungs clear, no respiratory distress, no accessory muscle use Cardiovascular: normal rate, regular rhythm, no JVD Abdomen: normal bowel sounds, soft, non tender, non distended Extremities: left 3rd toe with improved soft tissue swelling/cellulitis, distal tip gangrenous Neurologic/Psychiatric: no motor/sensory deficits, alert, oriented x 3, responsive Laboratory Tests Test 09/03/17 17:29 09/04/17 04:20 Vancomycin Level Trough 14.0 ug/mL (5.0-12.0) H White Blood Count 5.5 K/UL (4.8-10.8) Red Blood Count 4.94 M/UL (4.70-6.10) Hemoglobin 15.7 G/DL (14.2-18.0) Hematocrit 44.4 % (42.0-52.0) Mean Corpuscular Volume 90 FL (80-99) Mean Corpuscular Hemoglobin 31.8 PG (27.0-31.0) H Mean Corpuscular Hemoglobin Concent 35.5 G/DL (32.0-36.0) Red Cell Distribution Width 10.6 % (11.6-14.8) L Platelet Count 291 K/UL (150-450) Mean Platelet Volume 7.8 FL (6.5-10.1) Neutrophils (%) (Auto) 47.8 % (45.0-75.0) Lymphocytes (%) (Auto) 38.6 % (20.0-45.0) Monocytes (%) (Auto) 9.5 % (1.0-10.0) Eosinophils (%) (Auto) 3.0 % (0.0-3.0) Basophils (%) (Auto) 1.1 % (0.0-2.0) Erythrocyte Sedimentation Rate 52 MM/HR (0-15) H Sodium Level 139 MMOL/L (136-145) Potassium Level 3.4 MMOL/L (3.5-5.1) L Chloride Level 104 MMOL/L (98-107) Carbon Dioxide Level 32 MMOL/L (21-32) Anion Gap 3 mmol/L (5-15) L Blood Urea Nitrogen 10 mg/dL (7-18) Creatinine 0.7 MG/DL (0.55-1.30) Estimat Glomerular Filtration Rate > 60 mL/min (>60) Glucose Level 104 MG/DL (74-106) Calcium Level 9.1 MG/DL (8.5-10.1) Phosphorus Level 4.5 MG/DL (2.5-4.9) Magnesium Level 1.6 MG/DL (1.8-2.4) L Total Bilirubin 0.4 MG/DL (0.2-1.0) Aspartate Amino Transf (AST/SGOT) 38 U/L (15-37) H Alanine Aminotransferase (ALT/SGPT) 103 U/L (12-78) H Alkaline Phosphatase 162 U/L (46-116) H C-Reactive Protein, Quantitative < 0.4 mg/dL (0.00-0.90) Total Protein 7.1 G/DL (6.4-8.2) Albumin 3.0 G/DL (3.4-5.0) L Globulin 4.1 g/dL Albumin/Globulin Ratio 0.7 (1.0-2.7) L Current Medications Medications (Trade) Dose Ordered Sig/Ghazal Route PRN Reason Start Time Stop Time Status Last Admin Dose Admin Acetaminophen (Tylenol) 650 mg Q4H PRN ORAL fever 08/27/17 15:00 09/26/17 14:59 Ampicillin Sodium/ Sulbactam Sodium 3 gm/Sodium Chloride 110 ml @ 220 mls/hr Q6HR IVPB 08/31/17 12:30 09/07/17 12:29 09/04/17 06:33 Chlorhexidine Gluconate (Catina-Hex 2%) 1 applic DAILY@2000 TOPIC 08/30/17 20:00 09/29/17 19:59 09/03/17 20:00 Dextrose (Dextrose 50%) STAT PRN IV Hypoglycemia 08/27/17 15:00 09/26/17 14:59 Heparin Sodium (Porcine) (Heparin 5000 units/ml) 5,000 units EVERY 12 HOURS SUBQ 08/27/17 21:00 09/26/17 20:59 09/04/17 08:44 Insulin Aspart (NovoLOG) BEFORE MEALS AND HS SUBQ 08/27/17 16:30 09/26/17 16:29 09/04/17 06:41 Insulin Detemir (Levemir) 7 units DAILY SUBQ 08/28/17 11:00 09/27/17 10:59 09/04/17 08:44 Metformin HCl (Glucophage) 500 mg BEFORE LUNCH ORAL 08/28/17 11:30 09/27/17 11:29 09/03/17 12:37 Metformin HCl (Glucophage) 1,000 mg BIAC ORAL 08/28/17 06:30 09/27/17 06:29 09/04/17 06:36 Morphine Sulfate (Morphine Sulfate) 2 mg Q4H PRN IVP Severe Pain (Pain Scale 7-10) 09/03/17 18:45 09/10/17 18:44 09/04/17 07:35 Ondansetron HCl (Zofran) 4 mg Q6H PRN IVP Nausea & Vomiting 08/27/17 15:00 09/26/17 14:59 Polyethylene Glycol (Miralax) 17 gm DAILYPRN PRN ORAL Constipation 08/27/17 15:00 09/26/17 14:59 Potassium Chloride (K-Dur) 40 meq ONCE ONCE ORAL 09/04/17 09:45 09/04/17 09:46 Povidone Iodine (Betadine Susan) 1 applic BID TOPIC 08/28/17 15:00 09/27/17 14:59 09/04/17 08:42 Vancomycin HCl (Vanco rx to dose) 1 ea DAILYPRN PRN MISC Per rx protocol 09/01/17 12:30 10/01/17 12:29 Vancomycin HCl/ Dextrose 250 ml @ 125 mls/hr Q8HR@0200,1000,1800 IVPB 09/02/17 18:00 09/07/17 17:59 09/04/17 02:38 Tawnya Turner M.D. Sep 04, 2017 09:38
[2017-09-04] MEDS ORDERED: NS 275ml ONE (10:05)
[2017-09-04] MEDS ORDERED: Tubing IV Secondary IV ONE (10:05)
--- NOTE | 2017-09-04 11:39 | Pulmonology Progress Note ---
Assessment/Plan Problems: (1) Osteomyelitis of toe of left foot (2) Abnormal liver function test (3) Gangrene Assessment/Plan wound care IV abx podiatry check cultures all reviewed improving slowly Subjective ROS Limited/Unobtainable: No Constitutional: Reports: no symptoms Respiratory: Reports: no symptoms Allergies: Coded Allergies: No Known Allergies (Unverified , 10/08/16) Objective Last 24 Hour Vital Signs Date Time Temp Pulse Resp B/P (MAP) Pulse Ox O2 Delivery O2 Flow Rate FiO2 09/04/17 08:13 83 18 Room Air 21 09/04/17 08:00 99.1 88 20 122/66 Room Air 09/04/17 03:41 96.3 84 20 95/73 97 Room Air 09/04/17 00:00 98.4 79 21 139/81 99 Room Air 09/03/17 20:00 98.6 84 22 151/95 98 Room Air 09/03/17 19:53 86 18 Room Air 21 09/03/17 15:43 98.1 84 20 125/79 98 09/03/17 12:00 98 Room Air 09/03/17 11:45 97.9 83 20 131/82 98 Intake and Output 09/04/17 09/05/17 19:00 07:00 Intake Total 240 ml Balance 240 ml Intake Oral 240 ml # Voids 3 Objective General Appearance: WD/WN HEENT: normocephalic, anicteric Cardiovascular: normal peripheral pulses, normal rate Abdomen: normal bowel sounds, no organomegaly Genitourinary: normal external genitalia Extremities: no clubbing, clean dressing Skin: no lesions Lymphatic: no neck adenopathy Laboratory Tests 09/03/17 17:29: Vancomycin Level Trough 14.0H 09/04/17 04:20: White Blood Count 5.5, Red Blood Count 4.94, Hemoglobin 15.7, Hematocrit 44.4, Mean Corpuscular Volume 90, Mean Corpuscular Hemoglobin 31.8H, Mean Corpuscular Hemoglobin Concent 35.5, Red Cell Distribution Width 10.6L, Platelet Count 291, Mean Platelet Volume 7.8, Neutrophils (%) (Auto) 47.8, Lymphocytes (%) (Auto) 38.6, Monocytes (%) (Auto) 9.5, Eosinophils (%) (Auto) 3.0, Basophils (%) (Auto ) 1.1, Erythrocyte Sedimentation Rate 52H, Sodium Level 139, Potassium Level 3.4L, Chloride Level 104, Carbon Dioxide Level 32, Anion Gap 3L, Blood Urea Nitrogen 10, Creatinine 0.7, Estimat Glomerular Filtration Rate > 60, Glucose Level 104, Calcium Level 9.1, Phosphorus Level 4.5, Magnesium Level 1.6L, Total Bilirubin 0.4, Aspartate Amino Transf (AST/SGOT) 38H, Alanine Aminotransferase ( ALT/SGPT) 103H, Alkaline Phosphatase 162H, C-Reactive Protein, Quantitative < 0.4, Total Protein 7.1, Albumin 3.0L, Globulin 4.1, Albumin/Globulin Ratio 0.7L Current Medications Medications (Trade) Dose Ordered Sig/Ghazal Route PRN Reason Start Time Stop Time Status Last Admin Dose Admin Acetaminophen (Tylenol) 650 mg Q4H PRN ORAL fever 08/27/17 15:00 09/26/17 14:59 Ampicillin Sodium/ Sulbactam Sodium 3 gm/Sodium Chloride 110 ml @ 220 mls/hr Q6HR IVPB 08/31/17 12:30 09/07/17 12:29 09/04/17 06:33 Chlorhexidine Gluconate (Catina-Hex 2%) 1 applic DAILY@2000 TOPIC 08/30/17 20:00 09/29/17 19:59 09/03/17 20:00 Dextrose (Dextrose 50%) STAT PRN IV Hypoglycemia 08/27/17 15:00 09/26/17 14:59 Heparin Sodium (Porcine) (Heparin 5000 units/ml) 5,000 units EVERY 12 HOURS SUBQ 08/27/17 21:00 09/26/17 20:59 09/04/17 08:44 Insulin Aspart (NovoLOG) BEFORE MEALS AND HS SUBQ 08/27/17 16:30 09/26/17 16:29 09/04/17 06:41 Insulin Detemir (Levemir) 7 units DAILY SUBQ 08/28/17 11:00 09/27/17 10:59 09/04/17 08:44 Metformin HCl (Glucophage) 500 mg BEFORE LUNCH ORAL 08/28/17 11:30 09/27/17 11:29 09/03/17 12:37 Metformin HCl (Glucophage) 1,000 mg BIAC ORAL 08/28/17 06:30 09/27/17 06:29 09/04/17 06:36 Morphine Sulfate (Morphine Sulfate) 2 mg Q4H PRN IVP Severe Pain (Pain Scale 7-10) 09/03/17 18:45 09/10/17 18:44 09/04/17 07:35 Ondansetron HCl (Zofran) 4 mg Q6H PRN IVP Nausea & Vomiting 08/27/17 15:00 09/26/17 14:59 Polyethylene Glycol (Miralax) 17 gm DAILYPRN PRN ORAL Constipation 08/27/17 15:00 09/26/17 14:59 Povidone Iodine (Betadine Susan) 1 applic BID TOPIC 08/28/17 15:00 09/27/17 14:59 09/04/17 08:42 Vancomycin HCl (Vanco rx to dose) 1 ea DAILYPRN PRN MISC Per rx protocol 09/01/17 12:30 10/01/17 12:29 Vancomycin HCl/ Dextrose 250 ml @ 125 mls/hr Q8HR@0200,1000,1800 IVPB 09/02/17 18:00 09/07/17 17:59 09/04/17 09:54 CESAR SRINIVASAN Sep 04, 2017 11:39
[2017-09-04 12:00] VITALS: BP 144/81
--- NOTE | 2017-09-04 13:51 | Internal Med Progress Note ---
Subjective Date of Service: Sep 04, 2017 Physician Name Salima Sheffield Attending Physician Zachariah Solomon MD Current Medications Medications (Trade) Dose Ordered Sig/Ghazal Route PRN Reason Start Time Stop Time Status Last Admin Dose Admin Acetaminophen (Tylenol) 650 mg Q4H PRN ORAL fever 08/27/17 15:00 09/26/17 14:59 Ampicillin Sodium/ Sulbactam Sodium 3 gm/Sodium Chloride 110 ml @ 220 mls/hr Q6HR IVPB 08/31/17 12:30 09/07/17 12:29 09/04/17 12:34 Chlorhexidine Gluconate (Catina-Hex 2%) 1 applic DAILY@2000 TOPIC 08/30/17 20:00 09/29/17 19:59 09/03/17 20:00 Dextrose (Dextrose 50%) STAT PRN IV Hypoglycemia 08/27/17 15:00 09/26/17 14:59 Heparin Sodium (Porcine) (Heparin 5000 units/ml) 5,000 units EVERY 12 HOURS SUBQ 08/27/17 21:00 09/26/17 20:59 09/04/17 08:44 Insulin Aspart (NovoLOG) BEFORE MEALS AND HS SUBQ 08/27/17 16:30 09/26/17 16:29 09/04/17 12:36 Insulin Detemir (Levemir) 7 units DAILY SUBQ 08/28/17 11:00 09/27/17 10:59 09/04/17 08:44 Metformin HCl (Glucophage) 500 mg BEFORE LUNCH ORAL 08/28/17 11:30 09/27/17 11:29 09/04/17 12:34 Metformin HCl (Glucophage) 1,000 mg BIAC ORAL 08/28/17 06:30 09/27/17 06:29 09/04/17 06:36 Morphine Sulfate (Morphine Sulfate) 2 mg Q4H PRN IVP Severe Pain (Pain Scale 7-10) 09/03/17 18:45 09/10/17 18:44 09/04/17 12:42 Ondansetron HCl (Zofran) 4 mg Q6H PRN IVP Nausea & Vomiting 08/27/17 15:00 09/26/17 14:59 Polyethylene Glycol (Miralax) 17 gm DAILYPRN PRN ORAL Constipation 08/27/17 15:00 09/26/17 14:59 Povidone Iodine (Betadine Susan) 1 applic BID TOPIC 08/28/17 15:00 09/27/17 14:59 09/04/17 08:42 Vancomycin HCl (Vanco rx to dose) 1 ea DAILYPRN PRN MISC Per rx protocol 09/01/17 12:30 10/01/17 12:29 Vancomycin HCl/ Dextrose 250 ml @ 125 mls/hr Q8HR@0200,1000,1800 IVPB 09/02/17 18:00 09/07/17 17:59 09/04/17 09:54 Allergies: Coded Allergies: No Known Allergies (Unverified , 10/08/16) ROS Limited/Unobtainable: No Constitutional: Reports: no symptoms HEENT: Reports: no symptoms Cardiovascular: Reports: no symptoms Respiratory: Reports: no symptoms Gastrointestinal/Abdominal: Reports: no symptoms Genitourinary: Reports: no symptoms Neurologic/Psychiatric: Reports: no symptoms Subjective 42 YO M admitted with infection left foot. Now osteomyelitis left 3rd toe. Cover for Int Med-Dr Solomon. [facility]. Objective Last Vital Signs Date Time Temp Pulse Resp B/P (MAP) Pulse Ox O2 Delivery O2 Flow Rate FiO2 09/04/17 12:00 98.9 85 20 144/81 99 Room Air 09/04/17 08:13 21 Laboratory Tests Test 09/03/17 17:29 09/04/17 04:20 Vancomycin Level Trough 14.0 ug/mL (5.0-12.0) H White Blood Count 5.5 K/UL (4.8-10.8) Red Blood Count 4.94 M/UL (4.70-6.10) Hemoglobin 15.7 G/DL (14.2-18.0) Hematocrit 44.4 % (42.0-52.0) Mean Corpuscular Volume 90 FL (80-99) Mean Corpuscular Hemoglobin 31.8 PG (27.0-31.0) H Mean Corpuscular Hemoglobin Concent 35.5 G/DL (32.0-36.0) Red Cell Distribution Width 10.6 % (11.6-14.8) L Platelet Count 291 K/UL (150-450) Mean Platelet Volume 7.8 FL (6.5-10.1) Neutrophils (%) (Auto) 47.8 % (45.0-75.0) Lymphocytes (%) (Auto) 38.6 % (20.0-45.0) Monocytes (%) (Auto) 9.5 % (1.0-10.0) Eosinophils (%) (Auto) 3.0 % (0.0-3.0) Basophils (%) (Auto) 1.1 % (0.0-2.0) Erythrocyte Sedimentation Rate 52 MM/HR (0-15) H Sodium Level 139 MMOL/L (136-145) Potassium Level 3.4 MMOL/L (3.5-5.1) L Chloride Level 104 MMOL/L (98-107) Carbon Dioxide Level 32 MMOL/L (21-32) Anion Gap 3 mmol/L (5-15) L Blood Urea Nitrogen 10 mg/dL (7-18) Creatinine 0.7 MG/DL (0.55-1.30) Estimat Glomerular Filtration Rate > 60 mL/min (>60) Glucose Level 104 MG/DL (74-106) Calcium Level 9.1 MG/DL (8.5-10.1) Phosphorus Level 4.5 MG/DL (2.5-4.9) Magnesium Level 1.6 MG/DL (1.8-2.4) L Total Bilirubin 0.4 MG/DL (0.2-1.0) Aspartate Amino Transf (AST/SGOT) 38 U/L (15-37) H Alanine Aminotransferase (ALT/SGPT) 103 U/L (12-78) H Alkaline Phosphatase 162 U/L (46-116) H C-Reactive Protein, Quantitative < 0.4 mg/dL (0.00-0.90) Total Protein 7.1 G/DL (6.4-8.2) Albumin 3.0 G/DL (3.4-5.0) L Globulin 4.1 g/dL Albumin/Globulin Ratio 0.7 (1.0-2.7) L Intake and Output 09/04/17 09/05/17 19:00 07:00 Intake Total 240 ml Balance 240 ml Intake Oral 240 ml # Voids 3 Objective Objective General: No acute distress, awake and alert HEENT: NCAT, sclera anicteric, PERRL, EOMI. Neck: Supple, no significant jugular venous distention, Lungs: Good inspiratory effort, no accessory muscle use, clear to auscultation bilaterally, no Wheeze or Rales. Heart: Regular rate and rhythm, normal S1/S2, no murmurs/gallops Abdomen: soft, nontender, nondistended. Normoactive bowel sounds. / Rectal: Refused and deferred. Extremities: No Cyanosis , clubbing or edema. Neuro: A&O x 3, Able to move all extremities, Left foot dressing. Skin: warm, no rashes or lesions Psych: Normal mood and affect Assessment/Plan Problem List: (1) Osteomyelitis of toe of left foot Assessment & Plan: See podiatry and ID note. Continue vanco, flagyl and cefepime. May require serial I&D. (2) Abnormal liver function test (3) Uncontrolled diabetes mellitus Assessment & Plan: Continue novolog sliding scale. Assessment/Plan Discharge plan: Patient uninsured; [facility] health for IV antibiotic for 42 days (D# 8/42) SALIMA SHEFFIELD Sep 04, 2017 13:51
[2017-09-04 15:39] VITALS: BP 121/82
[2017-09-04 20:00] VITALS: BP 150/95
[2017-09-04] MEDS: Dyna-Hex 2% Top Sol 2oz TOPIC SCH (20:30)
[2017-09-05] VITALS: BP 122/79
[2017-09-05] MEDS: Vancomycin 1.5gm/D5W 250ml 250 ML IVPB SCH ×3 (01:54→18:22)
[2017-09-05 04:00] VITALS: BP 126/80
[2017-09-05] MEDS: Ampicillin/Sulbactam Sod 3 GM in NS 110 ML IVPB SCH ×4 (05:16→23:44)
[2017-09-05 06:22] LABS: BASOPHILS % (AUTO) 1.5 % (0.0-2.0); MEAN CORPUSCULAR HEMOGLOBIN 31.2 PG (27.0-31.0); MEAN CORPUSCULAR HGB CONC 34.2 G/DL (32.0-36.0); MEAN CORPUSCULAR VOLUME 91 FL (80-99); MEAN PLATELET VOLUME 8.6 FL (6.5-10.1); MONOCYTES % (AUTO) 7.8 % (1.0-10.0); NEUTROPHILS % (AUTO) 50.7 % (45.0-75.0); PLATELET COUNT 313 K/UL (150-450); RED BLOOD COUNT 5.04 M/UL (4.70-6.10); RED CELL DISTRIBUTION WIDTH 10.8 % (11.6-14.8)
[2017-09-05] MEDS: NovoLOG Insulin Flexpen SUBQ SCH ×4 (06:25→20:22)
[2017-09-05] MEDS: metFORMIN 500mg tab ORAL SCH ×3 (06:26→17:19)
[2017-09-05 06:34] LABS: ALANINE AMINOTRANSFERASE 122 U/L (12-78); ALBUMIN/GLOBULIN RATIO 0.7 (1.0-2.7); ANION GAP 5 mmol/L (5-15); ASPARTATE AMINO TRANSFERASE 90 U/L (15-37); CARBON DIOXIDE 31 MMOL/L (21-32); CHLORIDE 105 MMOL/L (98-107); CREATININE 0.6 MG/DL (0.55-1.30); GLOMERULAR FILTRATION RATE > 60 mL/min (>60); MAGNESIUM 1.7 MG/DL (1.8-2.4); PHOSPHORUS 4.2 MG/DL (2.5-4.9); POTASSIUM 3.6 MMOL/L (3.5-5.1); SODIUM 141 MMOL/L (136-145); TOTAL PROTEIN 7.2 G/DL (6.4-8.2)
[2017-09-05] MEDS: Levemir Flexpen SUBQ SCH (08:40)
[2017-09-05] MEDS: Heparin 5000 units/ml inj SUBQ SCH ×2 (08:41→20:25)
[2017-09-05] MEDS: Betadine 4oz Bottle TOPIC SCH ×2 (08:42→18:22)
[2017-09-05 08:49] VITALS: BP 103/64
[2017-09-05] MEDS: Morphine Sulfate 2mg/ml Inj IVP PRN ×3 (08:56→17:23)
[2017-09-05 12:00] VITALS: BP 134/78
--- NOTE | 2017-09-05 13:56 | Internal Med Progress Note ---
Subjective Date of Service: Sep 05, 2017 Physician Name Salima Sheffield Attending Physician Zachariah Solomon MD Current Medications Medications (Trade) Dose Ordered Sig/Ghazal Route PRN Reason Start Time Stop Time Status Last Admin Dose Admin Acetaminophen (Tylenol) 650 mg Q4H PRN ORAL fever 08/27/17 15:00 09/26/17 14:59 Ampicillin Sodium/ Sulbactam Sodium 3 gm/Sodium Chloride 110 ml @ 220 mls/hr Q6HR IVPB 08/31/17 12:30 09/07/17 12:29 09/05/17 13:06 Chlorhexidine Gluconate (Catina-Hex 2%) 1 applic DAILY@2000 TOPIC 08/30/17 20:00 09/29/17 19:59 09/04/17 20:30 Dextrose (Dextrose 50%) STAT PRN IV Hypoglycemia 08/27/17 15:00 09/26/17 14:59 Heparin Sodium (Porcine) (Heparin 5000 units/ml) 5,000 units EVERY 12 HOURS SUBQ 08/27/17 21:00 09/26/17 20:59 09/05/17 08:41 Insulin Aspart (NovoLOG) BEFORE MEALS AND HS SUBQ 08/27/17 16:30 09/26/17 16:29 09/05/17 13:08 Insulin Detemir (Levemir) 7 units DAILY SUBQ 08/28/17 11:00 09/27/17 10:59 09/05/17 08:40 Metformin HCl (Glucophage) 500 mg BEFORE LUNCH ORAL 08/28/17 11:30 09/27/17 11:29 09/05/17 13:06 Metformin HCl (Glucophage) 1,000 mg BIAC ORAL 08/28/17 06:30 09/27/17 06:29 09/04/17 16:54 Morphine Sulfate (Morphine Sulfate) 2 mg Q4H PRN IVP Severe Pain (Pain Scale 7-10) 09/03/17 18:45 09/10/17 18:44 09/05/17 13:12 Ondansetron HCl (Zofran) 4 mg Q6H PRN IVP Nausea & Vomiting 08/27/17 15:00 09/26/17 14:59 Polyethylene Glycol (Miralax) 17 gm DAILYPRN PRN ORAL Constipation 08/27/17 15:00 09/26/17 14:59 Povidone Iodine (Betadine Susan) 1 applic BID TOPIC 08/28/17 15:00 09/27/17 14:59 09/05/17 08:42 Vancomycin HCl (Vanco rx to dose) 1 ea DAILYPRN PRN MISC Per rx protocol 09/01/17 12:30 10/01/17 12:29 Vancomycin HCl/ Dextrose 250 ml @ 125 mls/hr Q8HR@0200,1000,1800 IVPB 09/02/17 18:00 09/07/17 17:59 09/05/17 10:19 Allergies: Coded Allergies: No Known Allergies (Unverified , 10/08/16) ROS Limited/Unobtainable: No Constitutional: Reports: no symptoms HEENT: Reports: no symptoms Cardiovascular: Reports: no symptoms Respiratory: Reports: no symptoms Gastrointestinal/Abdominal: Reports: no symptoms Genitourinary: Reports: no symptoms Neurologic/Psychiatric: Reports: no symptoms Subjective 42 YO M admitted with infection left foot. Now osteomyelitis left 3rd toe. Cover for Int Med-Dr Solomon. Await [facility]ptance by [facility] or home health. Objective Last Vital Signs Date Time Temp Pulse Resp B/P (MAP) Pulse Ox O2 Delivery O2 Flow Rate FiO2 09/05/17 09:26 98.2 09/05/17 08:49 88 18 103/64 99 Room Air 09/05/17 08:11 21 Laboratory Tests Test 09/05/17 06:00 White Blood Count 5.0 K/UL (4.8-10.8) Red Blood Count 5.04 M/UL (4.70-6.10) Hemoglobin 15.7 G/DL (14.2-18.0) Hematocrit 46.0 % (42.0-52.0) Mean Corpuscular Volume 91 FL (80-99) Mean Corpuscular Hemoglobin 31.2 PG (27.0-31.0) H Mean Corpuscular Hemoglobin Concent 34.2 G/DL (32.0-36.0) Red Cell Distribution Width 10.8 % (11.6-14.8) L Platelet Count 313 K/UL (150-450) Mean Platelet Volume 8.6 FL (6.5-10.1) Neutrophils (%) (Auto) 50.7 % (45.0-75.0) Lymphocytes (%) (Auto) 38.0 % (20.0-45.0) Monocytes (%) (Auto) 7.8 % (1.0-10.0) Eosinophils (%) (Auto) 2.0 % (0.0-3.0) Basophils (%) (Auto) 1.5 % (0.0-2.0) Sodium Level 141 MMOL/L (136-145) Potassium Level 3.6 MMOL/L (3.5-5.1) Chloride Level 105 MMOL/L (98-107) Carbon Dioxide Level 31 MMOL/L (21-32) Anion Gap 5 mmol/L (5-15) Blood Urea Nitrogen 8 mg/dL (7-18) Creatinine 0.6 MG/DL (0.55-1.30) Estimat Glomerular Filtration Rate > 60 mL/min (>60) Glucose Level 91 MG/DL (74-106) Calcium Level 9.0 MG/DL (8.5-10.1) Phosphorus Level 4.2 MG/DL (2.5-4.9) Magnesium Level 1.7 MG/DL (1.8-2.4) L Total Bilirubin 0.4 MG/DL (0.2-1.0) Aspartate Amino Transf (AST/SGOT) 90 U/L (15-37) H Alanine Aminotransferase (ALT/SGPT) 122 U/L (12-78) H Alkaline Phosphatase 179 U/L (46-116) H Total Protein 7.2 G/DL (6.4-8.2) Albumin 3.0 G/DL (3.4-5.0) L Globulin 4.2 g/dL Albumin/Globulin Ratio 0.7 (1.0-2.7) L Intake and Output 09/05/17 09/06/17 19:00 07:00 Intake Total 240 ml Balance 240 ml Intake Oral 240 ml Objective Objective General: No acute distress, awake and alert HEENT: NCAT, sclera anicteric, PERRL, EOMI. Neck: Supple, no significant jugular venous distention, Lungs: Good inspiratory effort, no accessory muscle use, clear to auscultation bilaterally, no Wheeze or Rales. Heart: Regular rate and rhythm, normal S1/S2, no murmurs/gallops Abdomen: soft, nontender, nondistended. Normoactive bowel sounds. / Rectal: Refused and deferred. Extremities: No Cyanosis , clubbing or edema. Neuro: A&O x 3, Able to move all extremities, Left foot dressing. Skin: warm, no rashes or lesions Psych: Normal mood and affect Assessment/Plan Problem List: (1) Osteomyelitis of toe of left foot Assessment & Plan: See podiatry and ID note. Continue vanco, flagyl and cefepime. May require serial I&D. (2) Abnormal liver function test (3) Uncontrolled diabetes mellitus Assessment & Plan: Continue novolog sliding scale. Assessment/Plan Discharge plan: Patient uninsured; [facility] for IV antibiotic for 42 days (D# ) SALIMA SHEFFIELD Sep 05, 2017 13:56
--- NOTE | 2017-09-05 14:27 | Infectious Diseases Prog Note ---
Assessment/Plan Assessment/Plan ASSESSMENT: 42 y/o male with: // Left 3rd toe ulcer / gangrene / abscess / osteomyelitis- polymicrobial - SP I&D 08/27 - WCx :+3 E.fecalis ( S Amp, vanco), +3 S. anginosus/ constellatus, +3 S. viridans , <+1 MRSA (S Vancomycin, Bactrim, tetracycline) - XR: Evidence of destruction of the terminal tuft of the third distal phalanx, worrisome process myelitis. Overlying soft tissue defect likely relates to stated clinical history of gangrene. Possible gas bubbles are noted, may indicate open wound or infection with gas-forming organism. Equivocal soft tissue and bony abnormality of the terminal tuft of the second digit. Tissue loss and osteomyelitis in this area not completely excludable. Consider MRI for better characterization - elevated ESR // Left foot cellulitis, improving // Elevated LFTs improving hepatitis panel: neg Abd us: Borderline hepatomegaly and increased hepatic echogenicity suggesting hepatic steatosis or other fibrofatty hepatocellular disease. Please correlate with liver function tests. Mild splenomegaly. Status post cholecystectomy. // Afebrile without leukocytosis // Uncontrolled DM2 - HbA1c 9.8% // NKDA // Full Code PLAN: -Continue IV Unasyn 3g q 6h abx d# and IV Vancomycin abx d # for OM -upon discharge for easier doing regimen, will do IV Vancomycin (dose per pharmacy), Ceftriaxone 2g daily and PO flagyl 500mg q8h -08/31 SP IV Vanco, Cefepime, Flagyl #4 - wound care - weekly CBC, CMP, ESR, CRP while on IV ABX -contact precautions Subjective Allergies: Coded Allergies: No Known Allergies (Unverified , 10/08/16) Subjective afebrile Objective Vital Signs Last 24 Hour Vital Signs Date Time Temp Pulse Resp B/P (MAP) Pulse Ox O2 Delivery O2 Flow Rate FiO2 09/05/17 09:26 98.2 09/05/17 08:49 98.2 88 18 103/64 99 Room Air 09/05/17 08:11 87 18 Room Air 21 09/05/17 04:00 97.7 80 20 126/80 97 Room Air 09/05/17 00:00 97.9 80 18 122/79 94 Room Air 09/04/17 20:00 98.2 96 20 150/95 98 Room Air 09/04/17 18:40 91 16 Room Air 21 09/04/17 15:39 97.7 85 18 121/82 99 Height (Feet): 5 Height (Inches): 6.00 Weight (Pounds): 165 HEENT: anicteric Respiratory/Chest: no respiratory distress Cardiovascular: regularly irregular Abdomen: no organomegaly Laboratory Tests Test 09/05/17 06:00 White Blood Count 5.0 K/UL (4.8-10.8) Red Blood Count 5.04 M/UL (4.70-6.10) Hemoglobin 15.7 G/DL (14.2-18.0) Hematocrit 46.0 % (42.0-52.0) Mean Corpuscular Volume 91 FL (80-99) Mean Corpuscular Hemoglobin 31.2 PG (27.0-31.0) H Mean Corpuscular Hemoglobin Concent 34.2 G/DL (32.0-36.0) Red Cell Distribution Width 10.8 % (11.6-14.8) L Platelet Count 313 K/UL (150-450) Mean Platelet Volume 8.6 FL (6.5-10.1) Neutrophils (%) (Auto) 50.7 % (45.0-75.0) Lymphocytes (%) (Auto) 38.0 % (20.0-45.0) Monocytes (%) (Auto) 7.8 % (1.0-10.0) Eosinophils (%) (Auto) 2.0 % (0.0-3.0) Basophils (%) (Auto) 1.5 % (0.0-2.0) Sodium Level 141 MMOL/L (136-145) Potassium Level 3.6 MMOL/L (3.5-5.1) Chloride Level 105 MMOL/L (98-107) Carbon Dioxide Level 31 MMOL/L (21-32) Anion Gap 5 mmol/L (5-15) Blood Urea Nitrogen 8 mg/dL (7-18) Creatinine 0.6 MG/DL (0.55-1.30) Estimat Glomerular Filtration Rate > 60 mL/min (>60) Glucose Level 91 MG/DL (74-106) Calcium Level 9.0 MG/DL (8.5-10.1) Phosphorus Level 4.2 MG/DL (2.5-4.9) Magnesium Level 1.7 MG/DL (1.8-2.4) L Total Bilirubin 0.4 MG/DL (0.2-1.0) Aspartate Amino Transf (AST/SGOT) 90 U/L (15-37) H Alanine Aminotransferase (ALT/SGPT) 122 U/L (12-78) H Alkaline Phosphatase 179 U/L (46-116) H Total Protein 7.2 G/DL (6.4-8.2) Albumin 3.0 G/DL (3.4-5.0) L Globulin 4.2 g/dL Albumin/Globulin Ratio 0.7 (1.0-2.7) L Current Medications Medications (Trade) Dose Ordered Sig/Ghazal Route PRN Reason Start Time Stop Time Status Last Admin Dose Admin Acetaminophen (Tylenol) 650 mg Q4H PRN ORAL fever 08/27/17 15:00 09/26/17 14:59 Ampicillin Sodium/ Sulbactam Sodium 3 gm/Sodium Chloride 110 ml @ 220 mls/hr Q6HR IVPB 08/31/17 12:30 09/07/17 12:29 09/05/17 13:06 Chlorhexidine Gluconate (Catina-Hex 2%) 1 applic DAILY@2000 TOPIC 08/30/17 20:00 09/29/17 19:59 09/04/17 20:30 Dextrose (Dextrose 50%) STAT PRN IV Hypoglycemia 08/27/17 15:00 09/26/17 14:59 Heparin Sodium (Porcine) (Heparin 5000 units/ml) 5,000 units EVERY 12 HOURS SUBQ 08/27/17 21:00 09/26/17 20:59 09/05/17 08:41 Insulin Aspart (NovoLOG) BEFORE MEALS AND HS SUBQ 08/27/17 16:30 09/26/17 16:29 09/05/17 13:08 Insulin Detemir (Levemir) 7 units DAILY SUBQ 08/28/17 11:00 09/27/17 10:59 09/05/17 08:40 Metformin HCl (Glucophage) 500 mg BEFORE LUNCH ORAL 08/28/17 11:30 09/27/17 11:29 09/05/17 13:06 Metformin HCl (Glucophage) 1,000 mg BIAC ORAL 08/28/17 06:30 09/27/17 06:29 09/04/17 16:54 Morphine Sulfate (Morphine Sulfate) 2 mg Q4H PRN IVP Severe Pain (Pain Scale 7-10) 09/03/17 18:45 09/10/17 18:44 09/05/17 13:12 Ondansetron HCl (Zofran) 4 mg Q6H PRN IVP Nausea & Vomiting 08/27/17 15:00 09/26/17 14:59 Polyethylene Glycol (Miralax) 17 gm DAILYPRN PRN ORAL Constipation 08/27/17 15:00 09/26/17 14:59 Povidone Iodine (Betadine Susan) 1 applic BID TOPIC 08/28/17 15:00 09/27/17 14:59 09/05/17 08:42 Vancomycin HCl (Vanco rx to dose) 1 ea DAILYPRN PRN MISC Per rx protocol 09/01/17 12:30 10/01/17 12:29 Vancomycin HCl/ Dextrose 250 ml @ 125 mls/hr Q8HR@0200,1000,1800 IVPB 09/02/17 18:00 09/07/17 17:59 09/05/17 10:19 KAMRAN ROMERO M.D. Sep 05, 2017 14:27
[2017-09-05 16:00] VITALS: BP 125/77
--- NOTE | 2017-09-05 16:21 | Pulmonology Progress Note ---
Assessment/Plan Problems: (1) Osteomyelitis of toe of left foot (2) Abnormal liver function test (3) Gangrene Assessment/Plan wound care IV abx podiatry check cultures all reviewed improving slowly Subjective ROS Limited/Unobtainable: No Allergies: Coded Allergies: No Known Allergies (Unverified , 10/08/16) Objective Last 24 Hour Vital Signs Date Time Temp Pulse Resp B/P (MAP) Pulse Ox O2 Delivery O2 Flow Rate FiO2 09/05/17 13:42 98.2 09/05/17 12:00 98.1 18 134/78 96 Room Air 09/05/17 08:49 98.2 88 18 103/64 99 Room Air 09/05/17 08:11 87 18 Room Air 21 09/05/17 04:00 97.7 80 20 126/80 97 Room Air 09/05/17 00:00 97.9 80 18 122/79 94 Room Air 09/04/17 20:00 98.2 96 20 150/95 98 Room Air 09/04/17 18:40 91 16 Room Air 21 Intake and Output 09/05/17 09/06/17 19:00 07:00 Intake Total 240 ml Balance 240 ml Intake Oral 240 ml Objective General Appearance: WD/WN HEENT: normocephalic, anicteric Cardiovascular: normal peripheral pulses, normal rate Abdomen: normal bowel sounds, no organomegaly Genitourinary: normal external genitalia Extremities: no clubbing, clean dressing Skin: no lesions Lymphatic: no neck adenopathy Laboratory Tests 09/05/17 06:00: White Blood Count 5.0, Red Blood Count 5.04, Hemoglobin 15.7, Hematocrit 46.0, Mean Corpuscular Volume 91, Mean Corpuscular Hemoglobin 31.2H, Mean Corpuscular Hemoglobin Concent 34.2, Red Cell Distribution Width 10.8L, Platelet Count 313, Mean Platelet Volume 8.6, Neutrophils (%) (Auto) 50.7, Lymphocytes (%) (Auto) 38.0, Monocytes (%) (Auto) 7.8, Eosinophils (%) (Auto) 2.0, Basophils (%) (Auto ) 1.5, Sodium Level 141, Potassium Level 3.6, Chloride Level 105, Carbon Dioxide Level 31, Anion Gap 5, Blood Urea Nitrogen 8, Creatinine 0.6, Estimat Glomerular Filtration Rate > 60, Glucose Level 91, Calcium Level 9.0, Phosphorus Level 4.2, Magnesium Level 1.7L, Total Bilirubin 0.4, Aspartate Amino Transf (AST/SGOT) 90H, Alanine Aminotransferase (ALT/SGPT) 122H, Alkaline Phosphatase 179H, Total Protein 7.2, Albumin 3.0L, Globulin 4.2, Albumin/ Globulin Ratio 0.7L Current Medications Medications (Trade) Dose Ordered Sig/Ghazal Route PRN Reason Start Time Stop Time Status Last Admin Dose Admin Acetaminophen (Tylenol) 650 mg Q4H PRN ORAL fever 08/27/17 15:00 09/26/17 14:59 Ampicillin Sodium/ Sulbactam Sodium 3 gm/Sodium Chloride 110 ml @ 220 mls/hr Q6HR IVPB 08/31/17 12:30 09/07/17 12:29 09/05/17 13:06 Chlorhexidine Gluconate (Catina-Hex 2%) 1 applic DAILY@2000 TOPIC 08/30/17 20:00 09/29/17 19:59 09/04/17 20:30 Dextrose (Dextrose 50%) STAT PRN IV Hypoglycemia 08/27/17 15:00 09/26/17 14:59 Heparin Sodium (Porcine) (Heparin 5000 units/ml) 5,000 units EVERY 12 HOURS SUBQ 08/27/17 21:00 09/26/17 20:59 09/05/17 08:41 Insulin Aspart (NovoLOG) BEFORE MEALS AND HS SUBQ 08/27/17 16:30 09/26/17 16:29 09/05/17 13:08 Insulin Detemir (Levemir) 7 units DAILY SUBQ 08/28/17 11:00 09/27/17 10:59 09/05/17 08:40 Metformin HCl (Glucophage) 500 mg BEFORE LUNCH ORAL 08/28/17 11:30 09/27/17 11:29 09/05/17 13:06 Metformin HCl (Glucophage) 1,000 mg BIAC ORAL 08/28/17 06:30 09/27/17 06:29 09/04/17 16:54 Morphine Sulfate (Morphine Sulfate) 2 mg Q4H PRN IVP Severe Pain (Pain Scale 7-10) 09/03/17 18:45 09/10/17 18:44 09/05/17 13:12 Ondansetron HCl (Zofran) 4 mg Q6H PRN IVP Nausea & Vomiting 08/27/17 15:00 09/26/17 14:59 Polyethylene Glycol (Miralax) 17 gm DAILYPRN PRN ORAL Constipation 08/27/17 15:00 09/26/17 14:59 Povidone Iodine (Betadine Susan) 1 applic BID TOPIC 08/28/17 15:00 09/27/17 14:59 09/05/17 08:42 Vancomycin HCl (Vanco rx to dose) 1 ea DAILYPRN PRN MISC Per rx protocol 09/01/17 12:30 10/01/17 12:29 Vancomycin HCl/ Dextrose 250 ml @ 125 mls/hr Q8HR@0200,1000,1800 IVPB 09/02/17 18:00 09/07/17 17:59 09/05/17 10:19 CESAR SRINIVASAN Sep 05, 2017 16:21
[2017-09-05 20:00] VITALS: BP 131/82
[2017-09-05] MEDS: Dyna-Hex 2% Top Sol 2oz TOPIC SCH (20:21)
[2017-09-06] VITALS: BP 108/74
[2017-09-06] MEDS: Vancomycin 1.5gm/D5W 250ml 250 ML IVPB SCH ×3 (01:48→18:39)
[2017-09-06 04:00] VITALS: BP 109/68
[2017-09-06] MEDS: Ampicillin/Sulbactam Sod 3 GM in NS 110 ML IVPB SCH ×4 (05:53→23:24)
[2017-09-06] MEDS: metFORMIN 500mg tab ORAL SCH ×3 (05:53→17:03)
[2017-09-06] MEDS: NovoLOG Insulin Flexpen SUBQ SCH ×4 (05:58→20:29)
[2017-09-06] MEDS: Morphine Sulfate 2mg/ml Inj IVP PRN ×3 (07:13→23:42)
[2017-09-06 07:48] LABS: BASOPHILS % (AUTO) 1.1 % (0.0-2.0); EOSINOPHILS % (AUTO) 2.6 % (0.0-3.0); MEAN CORPUSCULAR HEMOGLOBIN 31.3 PG (27.0-31.0); MEAN CORPUSCULAR HGB CONC 34.3 G/DL (32.0-36.0); MEAN CORPUSCULAR VOLUME 91 FL (80-99); MEAN PLATELET VOLUME 8.6 FL (6.5-10.1); MONOCYTES % (AUTO) 7.7 % (1.0-10.0); NEUTROPHILS % (AUTO) 54.6 % (45.0-75.0); PLATELET COUNT 277 K/UL (150-450); WHITE BLOOD COUNT 4.5 K/UL (4.8-10.8)
[2017-09-06 08:00] VITALS: BP 115/70
[2017-09-06 08:35] LABS: ALANINE AMINOTRANSFERASE 85 U/L (12-78); ALBUMIN/GLOBULIN RATIO 0.7 (1.0-2.7); ANION GAP 8 mmol/L (5-15); ASPARTATE AMINO TRANSFERASE 33 U/L (15-37); CALCIUM 8.9 MG/DL (8.5-10.1); CARBON DIOXIDE 29 MMOL/L (21-32); CHLORIDE 105 MMOL/L (98-107); CREATININE 0.7 MG/DL (0.55-1.30); GLOMERULAR FILTRATION RATE > 60 mL/min (>60); MAGNESIUM 1.6 MG/DL (1.8-2.4); PHOSPHORUS 3.8 MG/DL (2.5-4.9); POTASSIUM 3.8 MMOL/L (3.5-5.1); SODIUM 142 MMOL/L (136-145); TOTAL PROTEIN 7.2 G/DL (6.4-8.2)
[2017-09-06] MEDS: Heparin 5000 units/ml inj SUBQ SCH ×2 (08:48→20:25)
[2017-09-06] MEDS: Levemir Flexpen SUBQ SCH (08:48)
[2017-09-06] MEDS: Betadine 4oz Bottle TOPIC SCH ×2 (08:49→18:39)
[2017-09-06] MEDS ORDERED: NS 500ML ONE (09:08)
[2017-09-06 12:00] VITALS: BP 121/72
--- NOTE | 2017-09-06 14:02 | Internal Med Progress Note ---
Subjective Date of Service: Sep 06, 2017 Physician Name Salima Sheffield Attending Physician Zachariah Solomon MD Current Medications Medications (Trade) Dose Ordered Sig/Ghazal Route PRN Reason Start Time Stop Time Status Last Admin Dose Admin Acetaminophen (Tylenol) 650 mg Q4H PRN ORAL fever 08/27/17 15:00 09/26/17 14:59 Ampicillin Sodium/ Sulbactam Sodium 3 gm/Sodium Chloride 110 ml @ 220 mls/hr Q6HR IVPB 08/31/17 12:30 09/13/17 12:29 09/06/17 12:49 Chlorhexidine Gluconate (Catina-Hex 2%) 1 applic DAILY@2000 TOPIC 08/30/17 20:00 09/29/17 19:59 09/05/17 20:21 Dextrose (Dextrose 50%) STAT PRN IV Hypoglycemia 08/27/17 15:00 09/26/17 14:59 Heparin Sodium (Porcine) (Heparin 5000 units/ml) 5,000 units EVERY 12 HOURS SUBQ 08/27/17 21:00 09/26/17 20:59 09/06/17 08:48 Insulin Aspart (NovoLOG) BEFORE MEALS AND HS SUBQ 08/27/17 16:30 09/26/17 16:29 09/06/17 05:58 Insulin Detemir (Levemir) 7 units DAILY SUBQ 08/28/17 11:00 09/27/17 10:59 09/06/17 08:48 Metformin HCl (Glucophage) 500 mg BEFORE LUNCH ORAL 08/28/17 11:30 09/27/17 11:29 09/06/17 12:49 Metformin HCl (Glucophage) 1,000 mg BIAC ORAL 08/28/17 06:30 09/27/17 06:29 09/06/17 05:53 Morphine Sulfate (Morphine Sulfate) 2 mg Q4H PRN IVP Severe Pain (Pain Scale 7-10) 09/03/17 18:45 09/10/17 18:44 09/06/17 13:00 Ondansetron HCl (Zofran) 4 mg Q6H PRN IVP Nausea & Vomiting 08/27/17 15:00 09/26/17 14:59 Polyethylene Glycol (Miralax) 17 gm DAILYPRN PRN ORAL Constipation 08/27/17 15:00 09/26/17 14:59 Povidone Iodine (Betadine Susan) 1 applic BID TOPIC 08/28/17 15:00 09/27/17 14:59 09/06/17 08:49 Vancomycin HCl (Vanco rx to dose) 1 ea DAILYPRN PRN MISC Per rx protocol 09/01/17 12:30 10/01/17 12:29 Vancomycin HCl/ Dextrose 250 ml @ 125 mls/hr Q8HR@0200,1000,1800 IVPB 09/02/17 18:00 09/13/17 17:59 09/06/17 10:33 Allergies: Coded Allergies: No Known Allergies (Unverified , 10/08/16) ROS Limited/Unobtainable: No Constitutional: Reports: no symptoms HEENT: Reports: no symptoms Cardiovascular: Reports: no symptoms Respiratory: Reports: no symptoms Gastrointestinal/Abdominal: Reports: no symptoms Genitourinary: Reports: no symptoms Neurologic/Psychiatric: Reports: no symptoms Subjective 42 YO M admitted with infection left foot. Now osteomyelitis left 3rd toe. Cover for Int Med-Dr Solomon. Await accerptance by intermediate fac or home health. Objective Last Vital Signs Date Time Temp Pulse Resp B/P (MAP) Pulse Ox O2 Delivery O2 Flow Rate FiO2 09/06/17 13:30 98.1 09/06/17 12:00 85 18 121/72 98 Room Air 09/06/17 08:07 21 Laboratory Tests Test 09/06/17 06:00 White Blood Count 4.5 K/UL (4.8-10.8) L Red Blood Count 4.90 M/UL (4.70-6.10) Hemoglobin 15.3 G/DL (14.2-18.0) Hematocrit 44.7 % (42.0-52.0) Mean Corpuscular Volume 91 FL (80-99) Mean Corpuscular Hemoglobin 31.3 PG (27.0-31.0) H Mean Corpuscular Hemoglobin Concent 34.3 G/DL (32.0-36.0) Red Cell Distribution Width 11.0 % (11.6-14.8) L Platelet Count 277 K/UL (150-450) Mean Platelet Volume 8.6 FL (6.5-10.1) Neutrophils (%) (Auto) 54.6 % (45.0-75.0) Lymphocytes (%) (Auto) 34.0 % (20.0-45.0) Monocytes (%) (Auto) 7.7 % (1.0-10.0) Eosinophils (%) (Auto) 2.6 % (0.0-3.0) Basophils (%) (Auto) 1.1 % (0.0-2.0) Sodium Level 142 MMOL/L (136-145) Potassium Level 3.8 MMOL/L (3.5-5.1) Chloride Level 105 MMOL/L (98-107) Carbon Dioxide Level 29 MMOL/L (21-32) Anion Gap 8 mmol/L (5-15) Blood Urea Nitrogen 10 mg/dL (7-18) Creatinine 0.7 MG/DL (0.55-1.30) Estimat Glomerular Filtration Rate > 60 mL/min (>60) Glucose Level 131 MG/DL (74-106) H Calcium Level 8.9 MG/DL (8.5-10.1) Phosphorus Level 3.8 MG/DL (2.5-4.9) Magnesium Level 1.6 MG/DL (1.8-2.4) L Total Bilirubin 0.3 MG/DL (0.2-1.0) Aspartate Amino Transf (AST/SGOT) 33 U/L (15-37) Alanine Aminotransferase (ALT/SGPT) 85 U/L (12-78) H Alkaline Phosphatase 174 U/L (46-116) H Total Protein 7.2 G/DL (6.4-8.2) Albumin 3.0 G/DL (3.4-5.0) L Globulin 4.2 g/dL Albumin/Globulin Ratio 0.7 (1.0-2.7) L Objective Objective General: No acute distress, awake and alert HEENT: NCAT, sclera anicteric, PERRL, EOMI. Neck: Supple, no significant jugular venous distention, Lungs: Good inspiratory effort, no accessory muscle use, clear to auscultation bilaterally, no Wheeze or Rales. Heart: Regular rate and rhythm, normal S1/S2, no murmurs/gallops Abdomen: soft, nontender, nondistended. Normoactive bowel sounds. / Rectal: Refused and deferred. Extremities: No Cyanosis , clubbing or edema. Neuro: A&O x 3, Able to move all extremities, Left foot dressing. Skin: warm, no rashes or lesions Psych: Normal mood and affect Assessment/Plan Problem List: (1) Osteomyelitis of toe of left foot Assessment & Plan: See podiatry and ID note. Continue vanco, flagyl and cefepime. May require serial I&D. (2) Abnormal liver function test (3) Uncontrolled diabetes mellitus Assessment & Plan: Continue novolog sliding scale. Status: stable Assessment/Plan Discharge plan: Patient uninsured; intermediate fac vs home health for IV antibiotic for 42 days (D# ) SALIMA SHEFFIELD Sep 06, 2017 14:02
--- NOTE | 2017-09-06 14:17 | Pulmonology Progress Note ---
Assessment/Plan Problems: (1) Osteomyelitis of toe of left foot (2) Abnormal liver function test (3) Gangrene Assessment/Plan wound care IV abx podiatry check cultures all reviewed improving slowly Subjective ROS Limited/Unobtainable: No Constitutional: Reports: no symptoms HEENT: Repors: no symptoms Respiratory: Reports: no symptoms Allergies: Coded Allergies: No Known Allergies (Unverified , 10/08/16) Objective Last 24 Hour Vital Signs Date Time Temp Pulse Resp B/P (MAP) Pulse Ox O2 Delivery O2 Flow Rate FiO2 09/06/17 13:30 98.1 09/06/17 12:00 97.9 85 18 121/72 98 Room Air 09/06/17 08:07 82 18 Room Air 21 09/06/17 08:00 98.1 88 18 115/70 96 Room Air 09/06/17 04:00 98.2 80 20 109/68 97 Room Air 09/06/17 00:00 97.7 82 21 108/74 96 Room Air 09/05/17 23:55 80 18 Room Air 21 09/05/17 20:00 98.0 94 22 131/82 97 Room Air 09/05/17 16:00 98.5 82 20 125/77 95 Room Air Objective General Appearance: WD/WN HEENT: normocephalic, anicteric Cardiovascular: normal peripheral pulses, normal rate Abdomen: normal bowel sounds, no organomegaly Genitourinary: normal external genitalia Extremities: no clubbing, clean dressing Skin: no lesions Lymphatic: no neck adenopathy Laboratory Tests 09/06/17 06:00: White Blood Count 4.5L, Red Blood Count 4.90, Hemoglobin 15.3, Hematocrit 44.7, Mean Corpuscular Volume 91, Mean Corpuscular Hemoglobin 31.3H, Mean Corpuscular Hemoglobin Concent 34.3, Red Cell Distribution Width 11.0L, Platelet Count 277, Mean Platelet Volume 8.6, Neutrophils (%) (Auto) 54.6, Lymphocytes (%) (Auto) 34.0, Monocytes (%) (Auto) 7.7, Eosinophils (%) (Auto) 2.6, Basophils (%) (Auto ) 1.1, Sodium Level 142, Potassium Level 3.8, Chloride Level 105, Carbon Dioxide Level 29, Anion Gap 8, Blood Urea Nitrogen 10, Creatinine 0.7, Estimat Glomerular Filtration Rate > 60, Glucose Level 131H, Calcium Level 8.9, Phosphorus Level 3.8, Magnesium Level 1.6L, Total Bilirubin 0.3, Aspartate Amino Transf (AST/SGOT) 33, Alanine Aminotransferase (ALT/SGPT) 85H, Alkaline Phosphatase 174H, Total Protein 7.2, Albumin 3.0L, Globulin 4.2, Albumin/ Globulin Ratio 0.7L Current Medications Medications (Trade) Dose Ordered Sig/Ghazal Route PRN Reason Start Time Stop Time Status Last Admin Dose Admin Acetaminophen (Tylenol) 650 mg Q4H PRN ORAL fever 08/27/17 15:00 09/26/17 14:59 Ampicillin Sodium/ Sulbactam Sodium 3 gm/Sodium Chloride 110 ml @ 220 mls/hr Q6HR IVPB 08/31/17 12:30 09/13/17 12:29 09/06/17 12:49 Chlorhexidine Gluconate (Catina-Hex 2%) 1 applic DAILY@2000 TOPIC 08/30/17 20:00 09/29/17 19:59 09/05/17 20:21 Dextrose (Dextrose 50%) STAT PRN IV Hypoglycemia 08/27/17 15:00 09/26/17 14:59 Heparin Sodium (Porcine) (Heparin 5000 units/ml) 5,000 units EVERY 12 HOURS SUBQ 08/27/17 21:00 09/26/17 20:59 09/06/17 08:48 Insulin Aspart (NovoLOG) BEFORE MEALS AND HS SUBQ 08/27/17 16:30 09/26/17 16:29 09/06/17 05:58 Insulin Detemir (Levemir) 7 units DAILY SUBQ 08/28/17 11:00 09/27/17 10:59 09/06/17 08:48 Metformin HCl (Glucophage) 500 mg BEFORE LUNCH ORAL 08/28/17 11:30 09/27/17 11:29 09/06/17 12:49 Metformin HCl (Glucophage) 1,000 mg BIAC ORAL 08/28/17 06:30 09/27/17 06:29 09/06/17 05:53 Morphine Sulfate (Morphine Sulfate) 2 mg Q4H PRN IVP Severe Pain (Pain Scale 7-10) 09/03/17 18:45 09/10/17 18:44 09/06/17 13:00 Ondansetron HCl (Zofran) 4 mg Q6H PRN IVP Nausea & Vomiting 08/27/17 15:00 09/26/17 14:59 Polyethylene Glycol (Miralax) 17 gm DAILYPRN PRN ORAL Constipation 08/27/17 15:00 09/26/17 14:59 Povidone Iodine (Betadine Susan) 1 applic BID TOPIC 08/28/17 15:00 09/27/17 14:59 09/06/17 08:49 Vancomycin HCl (Vanco rx to dose) 1 ea DAILYPRN PRN MISC Per rx protocol 09/01/17 12:30 10/01/17 12:29 Vancomycin HCl/ Dextrose 250 ml @ 125 mls/hr Q8HR@0200,1000,1800 IVPB 09/02/17 18:00 09/13/17 17:59 09/06/17 10:33 CESAR SRINIVASAN Sep 06, 2017 14:17
[2017-09-06 16:23] VITALS: BP 150/95
[2017-09-06 20:16] VITALS: BP 148/91
[2017-09-06] MEDS: Dyna-Hex 2% Top Sol 2oz TOPIC SCH (20:25)
[2017-09-07 00:07] VITALS: BP 155/95
[2017-09-07] MEDS: Vancomycin 1.5gm/D5W 250ml 250 ML IVPB SCH ×3 (01:46→17:56)
[2017-09-07 04:00] VITALS: BP 144/78
[2017-09-07] MEDS: Ampicillin/Sulbactam Sod 3 GM in NS 110 ML IVPB SCH ×3 (06:40→17:04)
[2017-09-07] MEDS: metFORMIN 500mg tab ORAL SCH ×3 (06:41→17:04)
[2017-09-07] MEDS: NovoLOG Insulin Flexpen SUBQ SCH ×4 (06:48→20:33)
[2017-09-07 07:15] LABS: BASOPHILS % (AUTO) 1.7 % (0.0-2.0); EOSINOPHILS % (AUTO) 2.5 % (0.0-3.0); LYMPHOCYTES % (AUTO) 38.6 % (20.0-45.0); MEAN CORPUSCULAR HEMOGLOBIN 31.5 PG (27.0-31.0); MEAN CORPUSCULAR HGB CONC 34.8 G/DL (32.0-36.0); MEAN CORPUSCULAR VOLUME 91 FL (80-99); MEAN PLATELET VOLUME 8.8 FL (6.5-10.1); MONOCYTES % (AUTO) 8.6 % (1.0-10.0); NEUTROPHILS % (AUTO) 48.6 % (45.0-75.0); PLATELET COUNT 287 K/UL (150-450); RED BLOOD COUNT 4.96 M/UL (4.70-6.10); RED CELL DISTRIBUTION WIDTH 10.8 % (11.6-14.8); WHITE BLOOD COUNT 5.2 K/UL (4.8-10.8)
[2017-09-07 07:41] LABS: ANION GAP 10 mmol/L (5-15); CALCIUM 9.1 MG/DL (8.5-10.1); CARBON DIOXIDE 28 MMOL/L (21-32); CHLORIDE 103 MMOL/L (98-107); CREATININE 0.7 MG/DL (0.55-1.30); GLOMERULAR FILTRATION RATE > 60 mL/min (>60); POTASSIUM 3.8 MMOL/L (3.5-5.1); SODIUM 141 MMOL/L (136-145)
[2017-09-07 08:00] VITALS: BP 146/91
[2017-09-07] MEDS: Morphine Sulfate 2mg/ml Inj IVP PRN ×3 (08:21→17:56)
[2017-09-07] MEDS: Heparin 5000 units/ml inj SUBQ SCH ×2 (08:24→20:33)
[2017-09-07] MEDS: Levemir Flexpen SUBQ SCH (08:24)
[2017-09-07] MEDS: Betadine 4oz Bottle TOPIC SCH ×2 (08:25→17:05)
--- NOTE | 2017-09-07 10:13 | Diagnostic Imaging Report ---
APPROVED REPORT CPT Code: 21248 Present Symptoms Comments: Left arm pain Hx of a Left mid upper arm PICC line LEFT UPPER EXTREMITY: Venous imaging reveals patency of the internal jugular, subclavian, axillary and brachial veins. A segment of brachial veins not well visualized, due to an indwelling catheter. The cephalic and basilic veins are also patent. Doppler indicates normal spontaneous flow within these venous segments.
--- NOTE | 2017-09-07 11:18 | Internal Med Progress Note ---
Subjective Date of Service: Sep 07, 2017 Physician Name Salima Sheffield Attending Physician Zachariah Solomon MD Current Medications Medications (Trade) Dose Ordered Sig/Ghazal Route PRN Reason Start Time Stop Time Status Last Admin Dose Admin Acetaminophen (Tylenol) 650 mg Q4H PRN ORAL fever 08/27/17 15:00 09/26/17 14:59 Ampicillin Sodium/ Sulbactam Sodium 3 gm/Sodium Chloride 110 ml @ 220 mls/hr Q6HR IVPB 08/31/17 12:30 09/13/17 12:29 09/07/17 06:40 Chlorhexidine Gluconate (Catina-Hex 2%) 1 applic DAILY@2000 TOPIC 08/30/17 20:00 09/29/17 19:59 09/06/17 20:25 Dextrose (Dextrose 50%) STAT PRN IV Hypoglycemia 08/27/17 15:00 09/26/17 14:59 Heparin Sodium (Porcine) (Heparin 5000 units/ml) 5,000 units EVERY 12 HOURS SUBQ 08/27/17 21:00 09/26/17 20:59 09/07/17 08:24 Insulin Aspart (NovoLOG) BEFORE MEALS AND HS SUBQ 08/27/17 16:30 09/26/17 16:29 09/07/17 06:48 Insulin Detemir (Levemir) 7 units DAILY SUBQ 08/28/17 11:00 09/27/17 10:59 09/07/17 08:24 Metformin HCl (Glucophage) 500 mg BEFORE LUNCH ORAL 08/28/17 11:30 09/27/17 11:29 09/06/17 12:49 Metformin HCl (Glucophage) 1,000 mg BIAC ORAL 08/28/17 06:30 09/27/17 06:29 09/07/17 06:41 Morphine Sulfate (Morphine Sulfate) 2 mg Q4H PRN IVP Severe Pain (Pain Scale 7-10) 09/03/17 18:45 09/10/17 18:44 09/07/17 08:21 Ondansetron HCl (Zofran) 4 mg Q6H PRN IVP Nausea & Vomiting 08/27/17 15:00 09/26/17 14:59 Polyethylene Glycol (Miralax) 17 gm DAILYPRN PRN ORAL Constipation 08/27/17 15:00 09/26/17 14:59 Povidone Iodine (Betadine Susan) 1 applic BID TOPIC 08/28/17 15:00 09/27/17 14:59 09/07/17 08:25 Vancomycin HCl (Vanco rx to dose) 1 ea DAILYPRN PRN MISC Per rx protocol 09/01/17 12:30 10/01/17 12:29 Vancomycin HCl/ Dextrose 250 ml @ 125 mls/hr Q8HR@0200,1000,1800 IVPB 09/02/17 18:00 09/13/17 17:59 09/07/17 10:10 Allergies: Coded Allergies: No Known Allergies (Unverified , 10/08/16) ROS Limited/Unobtainable: No Constitutional: Reports: no symptoms HEENT: Reports: no symptoms Cardiovascular: Reports: no symptoms Respiratory: Reports: no symptoms Gastrointestinal/Abdominal: Reports: no symptoms Genitourinary: Reports: no symptoms Subjective 42 YO M admitted with infection left foot. Now osteomyelitis left 3rd toe. Cover for Int Med-Dr Solomon. Await accerptance by assisted fac or home health. Objective Last Vital Signs Date Time Temp Pulse Resp B/P (MAP) Pulse Ox O2 Delivery O2 Flow Rate FiO2 09/07/17 08:00 98.2 82 18 146/91 99 09/07/17 04:00 Room Air 09/06/17 23:38 21 Laboratory Tests Test 09/07/17 06:00 White Blood Count 5.2 K/UL (4.8-10.8) Red Blood Count 4.96 M/UL (4.70-6.10) Hemoglobin 15.6 G/DL (14.2-18.0) Hematocrit 44.9 % (42.0-52.0) Mean Corpuscular Volume 91 FL (80-99) Mean Corpuscular Hemoglobin 31.5 PG (27.0-31.0) H Mean Corpuscular Hemoglobin Concent 34.8 G/DL (32.0-36.0) Red Cell Distribution Width 10.8 % (11.6-14.8) L Platelet Count 287 K/UL (150-450) Mean Platelet Volume 8.8 FL (6.5-10.1) Neutrophils (%) (Auto) 48.6 % (45.0-75.0) Lymphocytes (%) (Auto) 38.6 % (20.0-45.0) Monocytes (%) (Auto) 8.6 % (1.0-10.0) Eosinophils (%) (Auto) 2.5 % (0.0-3.0) Basophils (%) (Auto) 1.7 % (0.0-2.0) Sodium Level 141 MMOL/L (136-145) Potassium Level 3.8 MMOL/L (3.5-5.1) Chloride Level 103 MMOL/L (98-107) Carbon Dioxide Level 28 MMOL/L (21-32) Anion Gap 10 mmol/L (5-15) Blood Urea Nitrogen 12 mg/dL (7-18) Creatinine 0.7 MG/DL (0.55-1.30) Estimat Glomerular Filtration Rate > 60 mL/min (>60) Glucose Level 119 MG/DL (74-106) H Calcium Level 9.1 MG/DL (8.5-10.1) Objective Objective General: No acute distress, awake and alert HEENT: NCAT, sclera anicteric, PERRL, EOMI. Neck: Supple, no significant jugular venous distention, Lungs: Good inspiratory effort, no accessory muscle use, clear to auscultation bilaterally, no Wheeze or Rales. Heart: Regular rate and rhythm, normal S1/S2, no murmurs/gallops Abdomen: soft, nontender, nondistended. Normoactive bowel sounds. / Rectal: Refused and deferred. Extremities: No Cyanosis , clubbing or edema. Neuro: A&O x 3, Able to move all extremities, Left foot dressing. Skin: warm, no rashes or lesions Psych: Normal mood and affect Assessment/Plan Problem List: (1) Osteomyelitis of toe of left foot Assessment & Plan: See podiatry and ID note. Continue vanco and unasyn D #. May require serial I&D. (2) Abnormal liver function test (3) Uncontrolled diabetes mellitus Assessment & Plan: Continue novolog sliding scale. Status: stable Assessment/Plan Discharge plan: Patient uninsured; assisted fac vs home health for IV antibiotic for 42 days (D# ) SALIMA SHEFFIELD Sep 07, 2017 11:18
[2017-09-07 12:00] VITALS: BP 115/83
--- NOTE | 2017-09-07 13:33 | Infectious Diseases Prog Note ---
Assessment/Plan Assessment/Plan ASSESSMENT: 42 y/o male with: // Left 3rd toe ulcer / gangrene / abscess / osteomyelitis- polymicrobial - SP I&D 08/27 - WCx :+3 E.fecalis ( S Amp, vanco), +3 S. anginosus/ constellatus, +3 S. viridans , <+1 MRSA (S Vancomycin, Bactrim, tetracycline) - XR: Evidence of destruction of the terminal tuft of the third distal phalanx, worrisome process myelitis. Overlying soft tissue defect likely relates to stated clinical history of gangrene. Possible gas bubbles are noted, may indicate open wound or infection with gas-forming organism. Equivocal soft tissue and bony abnormality of the terminal tuft of the second digit. Tissue loss and osteomyelitis in this area not completely excludable. Consider MRI for better characterization - elevated ESR // Left foot cellulitis, improving // Elevated LFTs improving hepatitis panel: neg Abd us: Borderline hepatomegaly and increased hepatic echogenicity suggesting hepatic steatosis or other fibrofatty hepatocellular disease. Please correlate with liver function tests. Mild splenomegaly. Status post cholecystectomy. // Afebrile without leukocytosis // Uncontrolled DM2 - HbA1c 9.8% // NKDA // Full Code PLAN: -Continue IV Unasyn 3g q 6h abx d# and IV Vancomycin abx d # for OM -upon discharge for easier doing regimen, will do IV Vancomycin (dose per pharmacy), Ceftriaxone 2g daily and PO flagyl 500mg q8h -08/31 SP IV Vanco, Cefepime, Flagyl #4 - wound care - weekly CBC, CMP, ESR, CRP while on IV ABX -contact precautions Subjective Allergies: Coded Allergies: No Known Allergies (Unverified , 10/08/16) Subjective afebrile no leukocytosis awaiting dispo Objective Vital Signs Last 24 Hour Vital Signs Date Time Temp Pulse Resp B/P (MAP) Pulse Ox O2 Delivery O2 Flow Rate FiO2 09/07/17 12:00 98.1 82 20 115/83 99 09/07/17 08:00 98.2 82 18 146/91 99 09/07/17 04:00 97.1 78 20 144/78 97 Room Air 09/07/17 00:07 98.1 87 20 155/95 97 Room Air 09/06/17 23:38 84 16 Room Air 21 09/06/17 21:31 79 18 Room Air 21 09/06/17 20:16 98.1 94 18 148/91 98 Room Air 09/06/17 16:23 97.9 91 18 150/95 98 Room Air Height (Feet): 5 Height (Inches): 6.00 Weight (Pounds): 165 Objective General Appearance: WD/WN, no acute distress HEENT: normocephalic, atraumatic, anicteric, mucous membranes moist Respiratory/Chest: lungs clear, no respiratory distress, no accessory muscle use Cardiovascular: normal rate, regular rhythm, no JVD Abdomen: normal bowel sounds, soft, non tender, non distended Extremities: left 3rd toe with improved soft tissue swelling/cellulitis, distal tip gangrenous Neurologic/Psychiatric: no motor/sensory deficits, alert, oriented x 3, responsive Laboratory Tests Test 09/07/17 06:00 White Blood Count 5.2 K/UL (4.8-10.8) Red Blood Count 4.96 M/UL (4.70-6.10) Hemoglobin 15.6 G/DL (14.2-18.0) Hematocrit 44.9 % (42.0-52.0) Mean Corpuscular Volume 91 FL (80-99) Mean Corpuscular Hemoglobin 31.5 PG (27.0-31.0) H Mean Corpuscular Hemoglobin Concent 34.8 G/DL (32.0-36.0) Red Cell Distribution Width 10.8 % (11.6-14.8) L Platelet Count 287 K/UL (150-450) Mean Platelet Volume 8.8 FL (6.5-10.1) Neutrophils (%) (Auto) 48.6 % (45.0-75.0) Lymphocytes (%) (Auto) 38.6 % (20.0-45.0) Monocytes (%) (Auto) 8.6 % (1.0-10.0) Eosinophils (%) (Auto) 2.5 % (0.0-3.0) Basophils (%) (Auto) 1.7 % (0.0-2.0) Sodium Level 141 MMOL/L (136-145) Potassium Level 3.8 MMOL/L (3.5-5.1) Chloride Level 103 MMOL/L (98-107) Carbon Dioxide Level 28 MMOL/L (21-32) Anion Gap 10 mmol/L (5-15) Blood Urea Nitrogen 12 mg/dL (7-18) Creatinine 0.7 MG/DL (0.55-1.30) Estimat Glomerular Filtration Rate > 60 mL/min (>60) Glucose Level 119 MG/DL (74-106) H Calcium Level 9.1 MG/DL (8.5-10.1) Current Medications Medications (Trade) Dose Ordered Sig/Ghazal Route PRN Reason Start Time Stop Time Status Last Admin Dose Admin Acetaminophen (Tylenol) 650 mg Q4H PRN ORAL fever 08/27/17 15:00 09/26/17 14:59 Ampicillin Sodium/ Sulbactam Sodium 3 gm/Sodium Chloride 110 ml @ 220 mls/hr Q6HR IVPB 08/31/17 12:30 09/13/17 12:29 09/07/17 12:18 Chlorhexidine Gluconate (Catina-Hex 2%) 1 applic DAILY@2000 TOPIC 08/30/17 20:00 09/29/17 19:59 09/06/17 20:25 Dextrose (Dextrose 50%) STAT PRN IV Hypoglycemia 08/27/17 15:00 09/26/17 14:59 Heparin Sodium (Porcine) (Heparin 5000 units/ml) 5,000 units EVERY 12 HOURS SUBQ 08/27/17 21:00 09/26/17 20:59 09/07/17 08:24 Insulin Aspart (NovoLOG) BEFORE MEALS AND HS SUBQ 08/27/17 16:30 09/26/17 16:29 09/07/17 12:12 Insulin Detemir (Levemir) 7 units DAILY SUBQ 08/28/17 11:00 09/27/17 10:59 09/07/17 08:24 Metformin HCl (Glucophage) 500 mg BEFORE LUNCH ORAL 08/28/17 11:30 09/27/17 11:29 09/07/17 12:12 Metformin HCl (Glucophage) 1,000 mg BIAC ORAL 08/28/17 06:30 09/27/17 06:29 09/07/17 06:41 Morphine Sulfate (Morphine Sulfate) 2 mg Q4H PRN IVP Severe Pain (Pain Scale 7-10) 09/03/17 18:45 09/10/17 18:44 09/07/17 12:28 Ondansetron HCl (Zofran) 4 mg Q6H PRN IVP Nausea & Vomiting 08/27/17 15:00 09/26/17 14:59 Polyethylene Glycol (Miralax) 17 gm DAILYPRN PRN ORAL Constipation 08/27/17 15:00 09/26/17 14:59 Povidone Iodine (Betadine Susan) 1 applic BID TOPIC 08/28/17 15:00 09/27/17 14:59 09/07/17 08:25 Vancomycin HCl (Vanco rx to dose) 1 ea DAILYPRN PRN MISC Per rx protocol 09/01/17 12:30 10/01/17 12:29 Vancomycin HCl/ Dextrose 250 ml @ 125 mls/hr Q8HR@0200,1000,1800 IVPB 09/02/17 18:00 09/13/17 17:59 09/07/17 10:10 Tawnya Turner M.D. Sep 07, 2017 13:33
--- NOTE | 2017-09-07 13:38 | Pulmonology Progress Note ---
Assessment/Plan Problems: (1) Osteomyelitis of toe of left foot (2) Abnormal liver function test (3) Gangrene Assessment/Plan wound care IV abx podiatry f/u check cultures all reviewed improving slowly Subjective ROS Limited/Unobtainable: No Allergies: Coded Allergies: No Known Allergies (Unverified , 10/08/16) Objective Last 24 Hour Vital Signs Date Time Temp Pulse Resp B/P (MAP) Pulse Ox O2 Delivery O2 Flow Rate FiO2 09/07/17 12:00 98.1 82 20 115/83 99 09/07/17 08:00 98.2 82 18 146/91 99 09/07/17 04:00 97.1 78 20 144/78 97 Room Air 09/07/17 00:07 98.1 87 20 155/95 97 Room Air 09/06/17 23:38 84 16 Room Air 21 09/06/17 21:31 79 18 Room Air 21 09/06/17 20:16 98.1 94 18 148/91 98 Room Air 09/06/17 16:23 97.9 91 18 150/95 98 Room Air Intake and Output 09/07/17 09/08/17 19:00 07:00 Intake Total 240 ml Output Total 800 ml Balance -560 ml Intake Oral 240 ml Output Urine Total 800 ml Objective General Appearance: WD/WN HEENT: normocephalic, anicteric Cardiovascular: normal peripheral pulses, normal rate Abdomen: normal bowel sounds, no organomegaly Genitourinary: normal external genitalia Extremities: no clubbing, clean dressing Skin: no lesions Lymphatic: no neck adenopathy Laboratory Tests 09/07/17 06:00: White Blood Count 5.2, Red Blood Count 4.96, Hemoglobin 15.6, Hematocrit 44.9, Mean Corpuscular Volume 91, Mean Corpuscular Hemoglobin 31.5H, Mean Corpuscular Hemoglobin Concent 34.8, Red Cell Distribution Width 10.8L, Platelet Count 287, Mean Platelet Volume 8.8, Neutrophils (%) (Auto) 48.6, Lymphocytes (%) (Auto) 38.6, Monocytes (%) (Auto) 8.6, Eosinophils (%) (Auto) 2.5, Basophils (%) (Auto ) 1.7, Sodium Level 141, Potassium Level 3.8, Chloride Level 103, Carbon Dioxide Level 28, Anion Gap 10, Blood Urea Nitrogen 12, Creatinine 0.7, Estimat Glomerular Filtration Rate > 60, Glucose Level 119H, Calcium Level 9.1 Current Medications Medications (Trade) Dose Ordered Sig/Ghazal Route PRN Reason Start Time Stop Time Status Last Admin Dose Admin Acetaminophen (Tylenol) 650 mg Q4H PRN ORAL fever 08/27/17 15:00 09/26/17 14:59 Ampicillin Sodium/ Sulbactam Sodium 3 gm/Sodium Chloride 110 ml @ 220 mls/hr Q6HR IVPB 08/31/17 12:30 09/13/17 12:29 09/07/17 12:18 Chlorhexidine Gluconate (Catina-Hex 2%) 1 applic DAILY@2000 TOPIC 08/30/17 20:00 09/29/17 19:59 09/06/17 20:25 Dextrose (Dextrose 50%) STAT PRN IV Hypoglycemia 08/27/17 15:00 09/26/17 14:59 Heparin Sodium (Porcine) (Heparin 5000 units/ml) 5,000 units EVERY 12 HOURS SUBQ 08/27/17 21:00 09/26/17 20:59 09/07/17 08:24 Insulin Aspart (NovoLOG) BEFORE MEALS AND HS SUBQ 08/27/17 16:30 09/26/17 16:29 09/07/17 12:12 Insulin Detemir (Levemir) 7 units DAILY SUBQ 08/28/17 11:00 09/27/17 10:59 09/07/17 08:24 Metformin HCl (Glucophage) 500 mg BEFORE LUNCH ORAL 08/28/17 11:30 09/27/17 11:29 09/07/17 12:12 Metformin HCl (Glucophage) 1,000 mg BIAC ORAL 08/28/17 06:30 09/27/17 06:29 09/07/17 06:41 Morphine Sulfate (Morphine Sulfate) 2 mg Q4H PRN IVP Severe Pain (Pain Scale 7-10) 09/03/17 18:45 09/10/17 18:44 09/07/17 12:28 Ondansetron HCl (Zofran) 4 mg Q6H PRN IVP Nausea & Vomiting 08/27/17 15:00 09/26/17 14:59 Polyethylene Glycol (Miralax) 17 gm DAILYPRN PRN ORAL Constipation 08/27/17 15:00 09/26/17 14:59 Povidone Iodine (Betadine Susan) 1 applic BID TOPIC 08/28/17 15:00 09/27/17 14:59 09/07/17 08:25 Vancomycin HCl (Vanco rx to dose) 1 ea DAILYPRN PRN MISC Per rx protocol 09/01/17 12:30 10/01/17 12:29 Vancomycin HCl/ Dextrose 250 ml @ 125 mls/hr Q8HR@0200,1000,1800 IVPB 09/02/17 18:00 09/13/17 17:59 09/07/17 10:10 CESAR SRINIVASAN Sep 07, 2017 13:38
[2017-09-07 16:00] VITALS: BP 142/72
[2017-09-07 20:00] VITALS: BP 132/88
[2017-09-07] MEDS: Dyna-Hex 2% Top Sol 2oz TOPIC SCH (20:31)
[2017-09-08] VITALS: BP 132/75
[2017-09-08] MEDS: Ampicillin/Sulbactam Sod 3 GM in NS 110 ML IVPB SCH ×3 (00:05→12:35)
[2017-09-08] MEDS: Vancomycin 1.5gm/D5W 250ml 250 ML IVPB SCH ×2 (01:20→08:53)
[2017-09-08 03:52] VITALS: BP 114/74
[2017-09-08] MEDS: metFORMIN 500mg tab ORAL SCH ×3 (06:18→16:47)
[2017-09-08] MEDS: NovoLOG Insulin Flexpen SUBQ SCH ×3 (06:25→16:49)
[2017-09-08 08:00] VITALS: BP 133/88
[2017-09-08] MEDS: Morphine Sulfate 2mg/ml Inj IVP PRN (08:44)
[2017-09-08] MEDS: Betadine 4oz Bottle TOPIC SCH ×2 (08:44→17:33)
[2017-09-08] MEDS: Heparin 5000 units/ml inj SUBQ SCH (08:46)
[2017-09-08] MEDS: Levemir Flexpen SUBQ SCH (08:49)
[2017-09-08 09:07] LABS: BASOPHILS % (AUTO) 1.7 % (0.0-2.0); LYMPHOCYTES % (AUTO) 33.7 % (20.0-45.0); MEAN CORPUSCULAR HEMOGLOBIN 30.7 PG (27.0-31.0); MEAN CORPUSCULAR HGB CONC 33.6 G/DL (32.0-36.0); MEAN CORPUSCULAR VOLUME 91 FL (80-99); MEAN PLATELET VOLUME 8.9 FL (6.5-10.1); NEUTROPHILS % (AUTO) 52.5 % (45.0-75.0); PLATELET COUNT 301 K/UL (150-450); RED BLOOD COUNT 5.17 M/UL (4.70-6.10); WHITE BLOOD COUNT 4.7 K/UL (4.8-10.8)
[2017-09-08 09:26] LABS: ANION GAP 7 mmol/L (5-15); CALCIUM 9.5 MG/DL (8.5-10.1); CARBON DIOXIDE 29 MMOL/L (21-32); CHLORIDE 102 MMOL/L (98-107); CREATININE 0.8 MG/DL (0.55-1.30); GLOMERULAR FILTRATION RATE > 60 mL/min (>60); POTASSIUM 4.5 MMOL/L (3.5-5.1); SODIUM 138 MMOL/L (136-145)
[2017-09-08 12:00] VITALS: BP 133/88
--- NOTE | 2017-09-08 12:20 | Infectious Diseases Prog Note ---
Assessment/Plan Assessment/Plan ASSESSMENT: 42 y/o male with: // Left 3rd toe ulcer / gangrene / abscess / osteomyelitis- polymicrobial - SP I&D 08/27 - WCx :+3 E.fecalis ( S Amp, vanco), +3 S. anginosus/ constellatus, +3 S. viridans , <+1 MRSA (S Vancomycin, Bactrim, tetracycline) - XR: Evidence of destruction of the terminal tuft of the third distal phalanx, worrisome process myelitis. Overlying soft tissue defect likely relates to stated clinical history of gangrene. Possible gas bubbles are noted, may indicate open wound or infection with gas-forming organism. Equivocal soft tissue and bony abnormality of the terminal tuft of the second digit. Tissue loss and osteomyelitis in this area not completely excludable. Consider MRI for better characterization - elevated ESR // Left foot cellulitis, improving // Elevated LFTs improving hepatitis panel: neg Abd us: Borderline hepatomegaly and increased hepatic echogenicity suggesting hepatic steatosis or other fibrofatty hepatocellular disease. Please correlate with liver function tests. Mild splenomegaly. Status post cholecystectomy. // Afebrile without leukocytosis // Uncontrolled DM2 - HbA1c 9.8% // NKDA // Full Code PLAN: -Continue IV Unasyn 3g q 6h abx d# and IV Vancomycin abx d # for OM -upon discharge for easier doing regimen, will do IV Vancomycin (dose per pharmacy), Ceftriaxone 2g daily and PO flagyl 500mg q8h -08/31 SP IV Vanco, Cefepime, Flagyl #4 - wound care - weekly CBC, CMP, ESR, CRP while on IV ABX -contact precautions Subjective Allergies: Coded Allergies: No Known Allergies (Unverified , 10/08/16) Subjective afebrile no leukocytosis awaiting dispo Objective Vital Signs Last 24 Hour Vital Signs Date Time Temp Pulse Resp B/P (MAP) Pulse Ox O2 Delivery O2 Flow Rate FiO2 09/08/17 09:14 97.5 09/08/17 08:00 97.5 91 20 133/88 99 Room Air 09/08/17 03:52 97.7 81 20 114/74 96 Room Air 09/08/17 00:00 98.2 82 21 132/75 96 Room Air 09/07/17 20:00 99.4 82 21 132/88 100 Room Air 09/07/17 16:00 97.9 85 19 142/72 96 09/07/17 16:00 Room Air Height (Feet): 5 Height (Inches): 6.00 Weight (Pounds): 165 Objective General Appearance: WD/WN, no acute distress HEENT: normocephalic, atraumatic, anicteric, mucous membranes moist Respiratory/Chest: lungs clear, no respiratory distress, no accessory muscle use Cardiovascular: normal rate, regular rhythm, no JVD Abdomen: normal bowel sounds, soft, non tender, non distended Extremities: left 3rd toe with improved soft tissue swelling/cellulitis, distal tip gangrenous Neurologic/Psychiatric: no motor/sensory deficits, alert, oriented x 3, responsive Laboratory Tests Test 09/08/17 08:40 White Blood Count 4.7 K/UL (4.8-10.8) L Red Blood Count 5.17 M/UL (4.70-6.10) Hemoglobin 15.8 G/DL (14.2-18.0) Hematocrit 47.1 % (42.0-52.0) Mean Corpuscular Volume 91 FL (80-99) Mean Corpuscular Hemoglobin 30.7 PG (27.0-31.0) Mean Corpuscular Hemoglobin Concent 33.6 G/DL (32.0-36.0) Red Cell Distribution Width 11.0 % (11.6-14.8) L Platelet Count 301 K/UL (150-450) Mean Platelet Volume 8.9 FL (6.5-10.1) Neutrophils (%) (Auto) 52.5 % (45.0-75.0) Lymphocytes (%) (Auto) 33.7 % (20.0-45.0) Monocytes (%) (Auto) 10.0 % (1.0-10.0) Eosinophils (%) (Auto) 2.0 % (0.0-3.0) Basophils (%) (Auto) 1.7 % (0.0-2.0) Sodium Level 138 MMOL/L (136-145) Potassium Level 4.5 MMOL/L (3.5-5.1) Chloride Level 102 MMOL/L (98-107) Carbon Dioxide Level 29 MMOL/L (21-32) Anion Gap 7 mmol/L (5-15) Blood Urea Nitrogen 13 mg/dL (7-18) Creatinine 0.8 MG/DL (0.55-1.30) Estimat Glomerular Filtration Rate > 60 mL/min (>60) Glucose Level 180 MG/DL (74-106) H Calcium Level 9.5 MG/DL (8.5-10.1) Current Medications Medications (Trade) Dose Ordered Sig/Ghazal Route PRN Reason Start Time Stop Time Status Last Admin Dose Admin Acetaminophen (Tylenol) 650 mg Q4H PRN ORAL fever 08/27/17 15:00 09/26/17 14:59 Ampicillin Sodium/ Sulbactam Sodium 3 gm/Sodium Chloride 110 ml @ 220 mls/hr Q6HR IVPB 08/31/17 12:30 09/13/17 12:29 09/08/17 06:17 Chlorhexidine Gluconate (Catina-Hex 2%) 1 applic DAILY@2000 TOPIC 08/30/17 20:00 09/29/17 19:59 09/07/17 20:31 Dextrose (Dextrose 50%) STAT PRN IV Hypoglycemia 08/27/17 15:00 09/26/17 14:59 Heparin Sodium (Porcine) (Heparin 5000 units/ml) 5,000 units EVERY 12 HOURS SUBQ 08/27/17 21:00 09/26/17 20:59 09/08/17 08:46 Insulin Aspart (NovoLOG) BEFORE MEALS AND HS SUBQ 08/27/17 16:30 09/26/17 16:29 09/08/17 06:25 Insulin Detemir (Levemir) 7 units DAILY SUBQ 08/28/17 11:00 09/27/17 10:59 09/08/17 08:49 Metformin HCl (Glucophage) 500 mg BEFORE LUNCH ORAL 08/28/17 11:30 09/27/17 11:29 09/07/17 12:12 Metformin HCl (Glucophage) 1,000 mg BIAC ORAL 08/28/17 06:30 09/27/17 06:29 09/08/17 06:18 Morphine Sulfate (Morphine Sulfate) 2 mg Q4H PRN IVP Severe Pain (Pain Scale 7-10) 09/03/17 18:45 09/10/17 18:44 09/08/17 08:44 Ondansetron HCl (Zofran) 4 mg Q6H PRN IVP Nausea & Vomiting 08/27/17 15:00 09/26/17 14:59 Polyethylene Glycol (Miralax) 17 gm DAILYPRN PRN ORAL Constipation 08/27/17 15:00 09/26/17 14:59 Povidone Iodine (Betadine Susan) 1 applic BID TOPIC 08/28/17 15:00 09/27/17 14:59 09/08/17 08:44 Vancomycin HCl (Vanco rx to dose) 1 ea DAILYPRN PRN MISC Per rx protocol 09/01/17 12:30 10/01/17 12:29 Vancomycin HCl/ Dextrose 250 ml @ 125 mls/hr Q8HR@0200,1000,1800 IVPB 09/02/17 18:00 09/13/17 17:59 09/08/17 08:53 Tawnya Turner M.D. Sep 08, 2017 12:20
[2017-09-08 16:00] VITALS: BP 148/92
--- NOTE | 2017-09-08 17:05 | Internal Med Progress Note ---
Subjective Date of Service: Sep 08, 2017 Physician Name Salima Sheffield Attending Physician Zachariah Solomon MD Current Medications Medications (Trade) Dose Ordered Sig/Ghazal Route PRN Reason Start Time Stop Time Status Last Admin Dose Admin Acetaminophen (Tylenol) 650 mg Q4H PRN ORAL fever 08/27/17 15:00 09/26/17 14:59 Ampicillin Sodium/ Sulbactam Sodium 3 gm/Sodium Chloride 110 ml @ 220 mls/hr Q6HR IVPB 08/31/17 12:30 09/13/17 12:29 09/08/17 12:35 Chlorhexidine Gluconate (Catina-Hex 2%) 1 applic DAILY@2000 TOPIC 08/30/17 20:00 09/29/17 19:59 09/07/17 20:31 Dextrose (Dextrose 50%) STAT PRN IV Hypoglycemia 08/27/17 15:00 09/26/17 14:59 Heparin Sodium (Porcine) (Heparin 5000 units/ml) 5,000 units EVERY 12 HOURS SUBQ 08/27/17 21:00 09/26/17 20:59 09/08/17 08:46 Insulin Aspart (NovoLOG) BEFORE MEALS AND HS SUBQ 08/27/17 16:30 09/26/17 16:29 09/08/17 16:49 Insulin Detemir (Levemir) 7 units DAILY SUBQ 08/28/17 11:00 09/27/17 10:59 09/08/17 08:49 Metformin HCl (Glucophage) 500 mg BEFORE LUNCH ORAL 08/28/17 11:30 09/27/17 11:29 09/08/17 12:34 Metformin HCl (Glucophage) 1,000 mg BIAC ORAL 08/28/17 06:30 09/27/17 06:29 09/08/17 16:47 Morphine Sulfate (Morphine Sulfate) 2 mg Q4H PRN IVP Severe Pain (Pain Scale 7-10) 09/03/17 18:45 09/10/17 18:44 09/08/17 08:44 Ondansetron HCl (Zofran) 4 mg Q6H PRN IVP Nausea & Vomiting 08/27/17 15:00 09/26/17 14:59 Polyethylene Glycol (Miralax) 17 gm DAILYPRN PRN ORAL Constipation 08/27/17 15:00 09/26/17 14:59 Povidone Iodine (Betadine Susan) 1 applic BID TOPIC 08/28/17 15:00 09/27/17 14:59 09/08/17 08:44 Vancomycin HCl (Vanco rx to dose) 1 ea DAILYPRN PRN MISC Per rx protocol 09/01/17 12:30 10/01/17 12:29 Vancomycin HCl/ Dextrose 250 ml @ 125 mls/hr Q8HR@0200,1000,1800 IVPB 09/02/17 18:00 09/13/17 17:59 09/08/17 08:53 Allergies: Coded Allergies: No Known Allergies (Unverified , 10/08/16) ROS Limited/Unobtainable: No Constitutional: Reports: no symptoms HEENT: Reports: no symptoms Cardiovascular: Reports: no symptoms Respiratory: Reports: no symptoms Gastrointestinal/Abdominal: Reports: no symptoms Genitourinary: Reports: no symptoms Neurologic/Psychiatric: Reports: no symptoms Subjective 42 YO M admitted with infection left foot. Now osteomyelitis left 3rd toe. Cover for Int Med-Dr Solomon. Await discharge home today Objective Last Vital Signs Date Time Temp Pulse Resp B/P (MAP) Pulse Ox O2 Delivery O2 Flow Rate FiO2 09/08/17 16:00 98.1 90 20 148/92 100 Room Air 09/06/17 23:38 21 Laboratory Tests Test 09/08/17 08:40 White Blood Count 4.7 K/UL (4.8-10.8) L Red Blood Count 5.17 M/UL (4.70-6.10) Hemoglobin 15.8 G/DL (14.2-18.0) Hematocrit 47.1 % (42.0-52.0) Mean Corpuscular Volume 91 FL (80-99) Mean Corpuscular Hemoglobin 30.7 PG (27.0-31.0) Mean Corpuscular Hemoglobin Concent 33.6 G/DL (32.0-36.0) Red Cell Distribution Width 11.0 % (11.6-14.8) L Platelet Count 301 K/UL (150-450) Mean Platelet Volume 8.9 FL (6.5-10.1) Neutrophils (%) (Auto) 52.5 % (45.0-75.0) Lymphocytes (%) (Auto) 33.7 % (20.0-45.0) Monocytes (%) (Auto) 10.0 % (1.0-10.0) Eosinophils (%) (Auto) 2.0 % (0.0-3.0) Basophils (%) (Auto) 1.7 % (0.0-2.0) Sodium Level 138 MMOL/L (136-145) Potassium Level 4.5 MMOL/L (3.5-5.1) Chloride Level 102 MMOL/L (98-107) Carbon Dioxide Level 29 MMOL/L (21-32) Anion Gap 7 mmol/L (5-15) Blood Urea Nitrogen 13 mg/dL (7-18) Creatinine 0.8 MG/DL (0.55-1.30) Estimat Glomerular Filtration Rate > 60 mL/min (>60) Glucose Level 180 MG/DL (74-106) H Calcium Level 9.5 MG/DL (8.5-10.1) Intake and Output 09/08/17 09/09/17 19:00 07:00 Intake Total 610 ml Output Total 1000 ml Balance -390 ml Intake Oral 250 ml IV Total 360 ml Output Urine Total 1000 ml # Voids 2 Objective Objective General: No acute distress, awake and alert HEENT: NCAT, sclera anicteric, PERRL, EOMI. Neck: Supple, no significant jugular venous distention, Lungs: Good inspiratory effort, no accessory muscle use, clear to auscultation bilaterally, no Wheeze or Rales. Heart: Regular rate and rhythm, normal S1/S2, no murmurs/gallops Abdomen: soft, nontender, nondistended. Normoactive bowel sounds. / Rectal: Refused and deferred. Extremities: No Cyanosis , clubbing or edema. Neuro: A&O x 3, Able to move all extremities, Left foot dressing. Skin: warm, no rashes or lesions Psych: Normal mood and affect Assessment/Plan Problem List: (1) Osteomyelitis of toe of left foot Assessment & Plan: See podiatry and ID note. Continue vanco and unasyn D #. May require serial I&D. (2) Abnormal liver function test (3) Uncontrolled diabetes mellitus Assessment & Plan: Continue novolog sliding scale. Status: stable Assessment/Plan Discharge home today. Cipro 500 mg BID, Bactrim D/S 2 tab BID and Flagyl 500 mg TID for 30 days. D/W Infectious Dis. SALIMA SHEFFIELD Sep 08, 2017 17:05
[2017-09-08] MEDS ORDERED: METRONIDAZOLE500 MG ORAL (17:14)
[2017-09-08] MEDS ORDERED: CIPROFLOXACIN500 MG PO (17:14)
[2017-09-08] MEDS ORDERED: BACTRIM-DS1 EA ORAL (17:14)
[2017-09-08] MEDS ORDERED: NS 500ML ONE (18:07)
[2017-09-08] MEDS ORDERED: Tubing IV Secondary IV ONE (18:07)
--- NOTE | 2017-09-08 18:21 | Pulmonology Progress Note ---
Assessment/Plan Problems: (1) Osteomyelitis of toe of left foot (2) Abnormal liver function test (3) Gangrene Assessment/Plan wound care IV abx podiatry f/u check cultures all reviewed improving slowly Subjective ROS Limited/Unobtainable: No HEENT: Repors: no symptoms Respiratory: Reports: no symptoms Allergies: Coded Allergies: No Known Allergies (Unverified , 10/08/16) Objective Last 24 Hour Vital Signs Date Time Temp Pulse Resp B/P (MAP) Pulse Ox O2 Delivery O2 Flow Rate FiO2 09/08/17 16:00 98.1 90 20 148/92 100 Room Air 09/08/17 12:00 97.5 91 20 133/88 100 Room Air 09/08/17 09:14 97.5 09/08/17 08:00 97.5 91 20 133/88 99 Room Air 09/08/17 03:52 97.7 81 20 114/74 96 Room Air 09/08/17 00:00 98.2 82 21 132/75 96 Room Air 09/07/17 20:00 99.4 82 21 132/88 100 Room Air Intake and Output 09/08/17 09/09/17 19:00 07:00 Intake Total 610 ml Output Total 1000 ml Balance -390 ml Intake Oral 250 ml IV Total 360 ml Output Urine Total 1000 ml # Voids 2 Objective General Appearance: WD/WN HEENT: normocephalic, anicteric Cardiovascular: normal peripheral pulses, normal rate Abdomen: normal bowel sounds, no organomegaly Genitourinary: normal external genitalia Extremities: no clubbing, clean dressing Skin: no lesions Lymphatic: no neck adenopathy Laboratory Tests 09/08/17 08:40: White Blood Count 4.7L, Red Blood Count 5.17, Hemoglobin 15.8, Hematocrit 47.1, Mean Corpuscular Volume 91, Mean Corpuscular Hemoglobin 30.7, Mean Corpuscular Hemoglobin Concent 33.6, Red Cell Distribution Width 11.0L, Platelet Count 301, Mean Platelet Volume 8.9, Neutrophils (%) (Auto) 52.5, Lymphocytes (%) (Auto) 33.7, Monocytes (%) (Auto) 10.0, Eosinophils (%) (Auto) 2.0, Basophils (%) (Auto ) 1.7, Sodium Level 138, Potassium Level 4.5, Chloride Level 102, Carbon Dioxide Level 29, Anion Gap 7, Blood Urea Nitrogen 13, Creatinine 0.8, Estimat Glomerular Filtration Rate > 60, Glucose Level 180H, Calcium Level 9.5 Current Medications Medications (Trade) Dose Ordered Sig/Ghazal Route PRN Reason Start Time Stop Time Status Last Admin Dose Admin Acetaminophen (Tylenol) 650 mg Q4H PRN ORAL fever 08/27/17 15:00 09/26/17 14:59 Ampicillin Sodium/ Sulbactam Sodium 3 gm/Sodium Chloride 110 ml @ 220 mls/hr Q6HR IVPB 08/31/17 12:30 09/13/17 12:29 09/08/17 12:35 Chlorhexidine Gluconate (Catina-Hex 2%) 1 applic DAILY@2000 TOPIC 08/30/17 20:00 09/29/17 19:59 09/07/17 20:31 Dextrose (Dextrose 50%) STAT PRN IV Hypoglycemia 08/27/17 15:00 09/26/17 14:59 Heparin Sodium (Porcine) (Heparin 5000 units/ml) 5,000 units EVERY 12 HOURS SUBQ 08/27/17 21:00 09/26/17 20:59 09/08/17 08:46 Insulin Aspart (NovoLOG) BEFORE MEALS AND HS SUBQ 08/27/17 16:30 09/26/17 16:29 09/08/17 16:49 Insulin Detemir (Levemir) 7 units DAILY SUBQ 08/28/17 11:00 09/27/17 10:59 09/08/17 08:49 Metformin HCl (Glucophage) 500 mg BEFORE LUNCH ORAL 08/28/17 11:30 09/27/17 11:29 09/08/17 12:34 Metformin HCl (Glucophage) 1,000 mg BIAC ORAL 08/28/17 06:30 09/27/17 06:29 09/08/17 16:47 Morphine Sulfate (Morphine Sulfate) 2 mg Q4H PRN IVP Severe Pain (Pain Scale 7-10) 09/03/17 18:45 09/10/17 18:44 09/08/17 08:44 Ondansetron HCl (Zofran) 4 mg Q6H PRN IVP Nausea & Vomiting 08/27/17 15:00 09/26/17 14:59 Polyethylene Glycol (Miralax) 17 gm DAILYPRN PRN ORAL Constipation 08/27/17 15:00 09/26/17 14:59 Povidone Iodine (Betadine Susan) 1 applic BID TOPIC 08/28/17 15:00 09/27/17 14:59 09/08/17 17:33 Vancomycin HCl (Vanco rx to dose) 1 ea DAILYPRN PRN MISC Per rx protocol 09/01/17 12:30 10/01/17 12:29 Vancomycin HCl/ Dextrose 250 ml @ 125 mls/hr Q8HR@0200,1000,1800 IVPB 09/02/17 18:00 09/13/17 17:59 09/08/17 08:53 CESAR SRINIVASAN Sep 08, 2017 18:21
--- NOTE | 2017-09-11 15:46 | Discharge Summary ---
Discharge Summary Hospital Course Date of Admission Aug 27, 2017 at 12:07 Date of Discharge Sep 08, 2017 at 18:08 Admitting Diagnosis gangrene Left 2nd toe HPI Edd Aldrich is a 42 year old male who was admitted on Aug 27, 2017 at 12:07 for Gangrene Left Second Toe Hospital Course [id number] Discharge Discharge Disposition Patient was discharged to Home (01) Discharge Diagnoses: Arminda Mccarthy NP Sep 11, 2017 15:46
--- NOTE | 2017-09-12 01:45 | Discharge Summary 2 SIG ---
DATE OF ADMISSION: 08/27/2017 DATE OF DISCHARGE: 09/08/2017 CONSULTANTS: 1. Elder Gibson M.D. 2. Tawnya Turner M.D. 3. Maykel Vuong D.P.M. BRIEF HOSPITAL COURSE: The patient is a 42-year-old gentleman with medical history significant for diabetes type 2 and history of cholecystectomy, presented to ER complaining of worsening infection on left foot. He was at emergency room a few days prior to admission and was given IV antibiotics and was subsequently discharged. He returned with worsening infection and pain with drainage coming out from the toe. Denied fever and chills. On evaluation at ED, there was no leukocytosis. Lactic acid was elevated. ESR was 27. X-ray of the left foot showed destruction of the terminal tuft of the third distal phalanx with overlying soft tissue defect, possible gas bubbles. Chest x-ray done showed evidence of old granulomatous disease with no acute process. EKG was without injury. He was started on IV antibiotic vancomycin. He was admitted for gas gangrene of the left second toe and uncontrolled diabetes mellitus type 2. He was given IV hydration. Dr. Vuong was consulted. A bedside incision and drainage of the left third toe was done on 08/27/2017. Purulence was noted and drained and the distal phalanx was exposed. Malodor was noted. Cultures were sent. He was given wound care. Initially, he was placed on vancomycin and cefepime. Flagyl was added. He had elevated LFTs. Abdominal ultrasound showed borderline hepatomegaly with hepatic steatosis. Hepatitis panel was negative. Venous duplex was negative for DVT. Blood sugars were monitored. Hemoglobin A1c was 9.8 and was started on Levemir with sliding scale of insulin and was continued on metformin b.i.d. Antibiotic was eventually switched to IV Unasyn 2 g q.6 hours. The patient will need 6 weeks of IV antibiotic treatment. Wound culture with growth of Enterococcus, Streptococcus viridans, and Staph aureus MRSA. Blood culture did not isolate any growth. PICC line was inserted on 08/31/2017 to the left arm. He was continued on IV antibiotic. Cellulitis resolved and condition was improving. He was cleared for discharge per Podiatry and we will recommend long-term followup. He was eventually discharged home on p.o. antibiotics to continue for 30 days. He was recommended to follow up with [facility]. [facility]ointment at [facility] was [facility]. He was eventually discharged. FINAL DIAGNOSES: 1. Acute osteomyelitis of the left foot. 2. Diabetes mellitus, out of control. 3. Elevated liver transaminases. 4. Gas gangrene on the left foot. 5. Left foot cellulitis. 6. Hepatic steatosis. 7. Lactic acidosis. DISPOSITION: The patient was discharged home. DISCHARGE MEDICATIONS: Ciprofloxacin 500 mg q.12 hours x30 days, Flagyl 500 mg q.8 hours x30 days, and Bactrim DS 2 tabs b.i.d. x30 days. DISCHARGE INSTRUCTIONS: Follow up with [facility] for wound care and antibiotic management. Zachariah Solomon M.D. I have been assigned to dictate discharge summary on this account and I was not involved in the patient's management. Arminda Mccarthy N.P. DR: ROSEANNA JOB#: [id number] CC: LOUIE
--- NOTE | 2017-09-15 14:54 | Cardiology Report ---
APPROVED REPORT EKG Measurement Heart [id number] Sinus tachycardia Possible Left atrial enlargement Borderline ECG
== END 2017-09-08 18:08 | disposition home or self-care (01) | DRG 300 ==
LOC: EMR 11:55 → 4W 12:07 → EDBEDREQ 13:44 → 4E 08-28 17:11
PROC: 02HV33Z Insertion of Infusion Device into Superior Vena Cava, Percutaneous Approach (ICD-10-PCS; principal; 2017-08-31)
PROC: B518ZZA Fluoroscopy of Superior Vena Cava, Guidance (ICD-10-PCS; principal; 2017-08-31)
DX: E11.52 Type 2 diabetes mellitus with diabetic peripheral angiopathy with gangrene (principal); E11.40 Type 2 diabetes mellitus with diabetic neuropathy, unspecified; E87.2 Acidosis; M86.172 Other acute osteomyelitis, left ankle and foot; E11.621 Type 2 diabetes mellitus with foot ulcer; L03.116 Cellulitis of left lower limb; E87.1 Hypo-osmolality and hyponatremia; L97.528 Non-pressure chronic ulcer of other part of left foot with other specified severity; E11.65 Type 2 diabetes mellitus with hyperglycemia; K76.0 Fatty (change of) liver, not elsewhere classified; B95.62 Methicillin resistant Staphylococcus aureus infection as the cause of diseases classified elsewhere
CPT/HCPCS: 36415; 36569; 71010; 76700; 76937; 80048; 80053; 80202; 81003; 82550; 82962; 83036; 83605; 83735; 84100; 84484; 85025; 85610; 85651; 85730; 86140; 86705; 86709; 86803; 87040; 87070; 87081; 87181; 87205; 87340; 93005; 93970; 93971; 94664; 99285; A4246; J1815; J2250; J2405; J2765; J8499; S5561

== ENCOUNTER 2017-09-21 11:46 | Emergency (ER) | payer SELFPAY ==
[~2017-09-21] VITALS: Ht 170.2 cm; Wt 74.8 kg
[~2017-09-21 11:46] MED LIST changes: +BACTRIM-DS1 EA ORAL; +CIPROFLOXACIN500 MG PO; +METRONIDAZOLE500 MG ORAL
[2017-09-21 12:08] VITALS: BP 131/79
[2017-09-21 13:11] LABS: APPEARANCE,URINE SLIGHTLY CLOUDY; KETONES,URINE NEGATIVE (NEGATIVE); LEUKOCYTE ESTERASE ,URINE 1+ (NEGATIVE); NITRITE,URINE NEGATIVE (NEGATIVE); PH,URINE 5 (4.5-8.0); PROTEIN,URINE 3+ (NEGATIVE); UROBILINOGEN,URINE NORMAL MG/DL (0.0-1.0)
[2017-09-21 13:12] LABS: BASOPHILS % (AUTO) 1.3 % (0.0-2.0); LYMPHOCYTES % (AUTO) 37.7 % (20.0-45.0); MEAN CORPUSCULAR HEMOGLOBIN 30.6 PG (27.0-31.0); MEAN CORPUSCULAR HGB CONC 33.9 G/DL (32.0-36.0); MEAN CORPUSCULAR VOLUME 90 FL (80-99); MEAN PLATELET VOLUME 10.6 FL (6.5-10.1); MONOCYTES % (AUTO) 10.6 % (1.0-10.0); NEUTROPHILS % (AUTO) 46.5 % (45.0-75.0); PLATELET COUNT 175 K/UL (150-450); RED BLOOD COUNT 4.98 M/UL (4.70-6.10); RED CELL DISTRIBUTION WIDTH 11.3 % (11.6-14.8); WHITE BLOOD COUNT 4.7 K/UL (4.8-10.8)
[2017-09-21 13:21] LABS: ANION GAP 9 mmol/L (5-15); BACTERIA,URINE OCCASIONAL /HPF; CALCIUM 8.9 MG/DL (8.5-10.1); CARBON DIOXIDE 25 MMOL/L (21-32); CHLORIDE 100 MMOL/L (98-107); GLOMERULAR FILTRATION RATE > 60 mL/min (>60); POTASSIUM 4.1 MMOL/L (3.5-5.1); SODIUM 134 MMOL/L (136-145); SQUAMOUS EPITHELIAL CELL,UR OCCASIONAL /LPF (NONE/OCC); WBC,URINE 0-2 /HPF (0 - 0)
[2017-09-21 13:22] LABS: MUCUS,URINE FEW /LPF (NONE/OCC); URIC ACID CRYSTALS,URINE MODERATE /LPF
[2017-09-21 13:26] LABS: ALANINE AMINOTRANSFERASE 33 U/L (12-78); ALBUMIN/GLOBULIN RATIO 0.9 (1.0-2.7); ASPARTATE AMINO TRANSFERASE 22 U/L (15-37); LIPASE 190 U/L (73-393); TOTAL PROTEIN 7.4 G/DL (6.4-8.2)
[2017-09-21] MEDS ORDERED: Ketorolac 30mg Inj IV ONE (13:30)
[2017-09-21] MEDS ORDERED: TRAMADOL HCL50 MG ORAL (14:25)
[2017-09-21 14:30] VITALS: BP 128/74
--- NOTE | 2017-09-21 16:57 | Diagnostic Imaging Report ---
Indication: PAIN Technique: 3 views left foot Comparison: none Findings: There is evidence of bony and soft tissue abnormality of the terminal tuft of the third distal phalanx, with soft tissue defect as well as absence of the terminal tuft. No other acute fractures. No radiopaque foreign body. No dislocations. The joint spaces are preserved. Findings are unchanged Impression: Stable soft tissue and bony defect of the tip of the third toe, consistent with gangrene and underlying osteomyelitis, unchanged since prior study 08/27/2017
--- NOTE | 2017-09-21 21:57 | Emergency Room Report ---
History of Present Illness General Chief Complaint: Pain Source: Patient Present Illness [facility] The patient is a 42-year-old male presenting for left toe pain. He was admitted to this hospital and discharged 2 weeks prior for gangrene and infection of the left middle toe. He was discharged home with prescription for Bactrim, ciprofloxacin, and Flagyl. He states that he has been taking all of these medications as directed. He has been having continued pain and has now returned for evaluation. He has not followed up with his primary doctor or podiatry since being discharged. Pain is an 8/10 dull ache and does not radiate from the toe. Worse with touch. He denies discharge from the area. He denies other symptoms including numbness, fever, chills, calf pain or swelling Allergies: Coded Allergies: No Known Allergies (Unverified , 10/08/16) Patient History Past Medical History: see triage record Pertinent Family History: none Reviewed Nursing Documentation: PMH: Agreed, PSxH: Agreed Nursing Documentation-PMH Hx Hypertension: Yes Hx Diabetes: Yes Review of Systems All Other Systems: negative except mentioned in HPI Physical Exam Vital Signs Date Time Temp Pulse Resp B/P (MAP) Pulse Ox O2 Delivery O2 Flow Rate FiO2 09/21/17 11:56 98.4 93 16 131/79 99 Room Air Sp02 EP Interpretation: reviewed, normal General Appearance: no apparent distress, alert, GCS 15, non-toxic Head: normocephalic, atraumatic Eyes: bilateral eye normal inspection, bilateral eye PERRL ENT: hearing grossly normal, normal pharynx, no angioedema, normal voice Musculoskeletal: no calf tenderness, decreased range of motion - L 3rd digit, tender - L 3rd digit Neurologic: alert, oriented x3, responsive, sensory intact Psychiatric: judgement/insight normal, memory normal, mood/affect normal, no suicidal/homicidal ideation Skin: other - There is discoloration to the left third digit with possible distal necrosis. No discharge or bleeding. Sensation is intact Lymphatic: no adenopathy Medical Decision Making PA Attestation Dr. Baig is my supervising physician. Patient management was discussed with my supervising physician Diagnostic Impression: Primary Impression: Toe infection Additional Impression: Visit for wound check ER Course The patient is a 42-year-old male presenting for left toe pain Ddx considered include but not limited to gangrene, cellulitis, sprain/strain, fracture, contusion PE: afebrile. NAD Left foot: There is localized discoloration to the third digit. Limited active range of motion. Sensation is intact to light touch. There is no discharge or bleeding. Distal end appears to have some necrosis CBC no leukocytosis CMP shows hyperglycemia. Otherwise unremarkable Lactate within normal limits Xray: Stable soft tissue and bony defect of the tip of the third toe, consistent with gangrene and underlying osteomyelitis, unchanged since prior study 08/27/2017 Dr. Vuong Was consulted over the phone and physical exam findings were discussed. He states that this is improved from when the patient was admitted and he needs to continue to take the antibiotics that he was prescribed. He needs to also followup with podiatry. The patient was informed of this. ER precautions given Laboratory Tests Test 09/21/17 12:50 White Blood Count 4.7 K/UL (4.8-10.8) L Red Blood Count 4.98 M/UL (4.70-6.10) Hemoglobin 15.3 G/DL (14.2-18.0) Hematocrit 45.0 % (42.0-52.0) Mean Corpuscular Volume 90 FL (80-99) Mean Corpuscular Hemoglobin 30.6 PG (27.0-31.0) Mean Corpuscular Hemoglobin Concent 33.9 G/DL (32.0-36.0) Red Cell Distribution Width 11.3 % (11.6-14.8) L Platelet Count 175 K/UL (150-450) Mean Platelet Volume 10.6 FL (6.5-10.1) H Neutrophils (%) (Auto) 46.5 % (45.0-75.0) Lymphocytes (%) (Auto) 37.7 % (20.0-45.0) Monocytes (%) (Auto) 10.6 % (1.0-10.0) H Eosinophils (%) (Auto) 4.0 % (0.0-3.0) H Basophils (%) (Auto) 1.3 % (0.0-2.0) Urine Color Yellow Urine Appearance Slightly cloudy Urine pH 5 (4.5-8.0) Urine Specific [place] 1.025 (1.005-1.035) Urine Protein 3+ (NEGATIVE) H Urine Glucose (UA) 2+ (NEGATIVE) H Urine Ketones Negative (NEGATIVE) Urine Occult Blood 3+ (NEGATIVE) H Urine Nitrite Negative (NEGATIVE) Urine Bilirubin Negative (NEGATIVE) Urine Urobilinogen Normal MG/DL (0.0-1.0) Urine Leukocyte Esterase 1+ (NEGATIVE) H Urine RBC 2-4 /HPF (0 - 0) H Urine WBC 0-2 /HPF (0 - 0) Urine Squamous Epithelial Cells Occasional /LPF Urine Uric Acid Crystals Moderate /LPF (NONE) H Urine Bacteria Occasional /HPF (NONE) Urine Mucus Few /LPF (NONE/OCC) H Sodium Level 134 MMOL/L (136-145) L Potassium Level 4.1 MMOL/L (3.5-5.1) Chloride Level 100 MMOL/L (98-107) Carbon Dioxide Level 25 MMOL/L (21-32) Anion Gap 9 mmol/L (5-15) Blood Urea Nitrogen 20 mg/dL (7-18) H Creatinine 1.0 MG/DL (0.55-1.30) Estimate Glomerular Filtration Rate > 60 mL/min (>60) Glucose Level 198 MG/DL (74-106) H Lactic Acid Level 1.50 mmol/L (0.66-2.22) Calcium Level 8.9 MG/DL (8.5-10.1) Total Bilirubin 0.3 MG/DL (0.2-1.0) Aspartate Amino Transferase (AST) 22 U/L (15-37) Alanine Aminotransferase (ALT) 33 U/L (12-78) Alkaline Phosphatase 122 U/L (46-116) H Total Protein 7.4 G/DL (6.4-8.2) Albumin 3.4 G/DL (3.4-5.0) Globulin 4.0 g/dL Albumin/Globulin Ratio 0.9 (1.0-2.7) L Lipase 190 U/L (73-393) Lab Results Impression CBC no leukocytosis CMP shows hyperglycemia. Otherwise unremarkable Lactate within normal limits Other X-Ray Diagnostic Results Other X-Ray Diagnostic Results : X-Ray ordered: L foot # of Views/Limited Vs Complete: 3 View Indication: Pain EP Interpretation: Yes PA Xray: Interpretation reviewed, by supervising MD, and agrees with findings. Interpretation: no dislocation, other - findings consistent with gangrene Impression: Other - unchanged since last xray Electronically Signed by: Richard Blandon PA-C Last Vital Signs Date Time Temp Pulse Resp B/P (MAP) Pulse Ox O2 Delivery O2 Flow Rate FiO2 09/21/17 14:30 98.4 80 18 128/74 99 Room Air Status: improved Disposition: HOME, SELF-CARE Condition: Improved Scripts Tramadol Hcl* (ULTRAM*) 50 Mg Tablet 50 MG ORAL Q6H Y for For Pain, #15 TAB 0 Refills Prov: RICHARD BLANDON 09/21/17 Patient Instructions: Cellulitis, Gangrene Additional Instructions: I discussed my findings with the patient. All questions and concerns have been answered. Treatment and medication compliance have been addressed. Return to ED if symptoms worsen, new symptoms arise, or if needed for any reason. Patient verbalized understanding of discharge instructions. The patient was instructed to followup with podiatry as soon as possible and continue taking the antibiotics as were prescribed to him RICHARD BLANDON Sep 21, 2017 21:57
== END 2017-09-21 14:30 | disposition home or self-care (01) ==
LOC: EMR 12:28 → CANBEDREQ 14:37
DX: L08.9 Local infection of the skin and subcutaneous tissue, unspecified (principal); E11.9 Type 2 diabetes mellitus without complications; I10 Essential (primary) hypertension
CPT/HCPCS: 36415; 73630; 80053; 81003; 83605; 83690; 85025; 96361; 96374; 99284; J1885

== ENCOUNTER 2019-06-09 12:16 | Emergency (ER) | payer MEDICAID, OTHER ==
[~2019-06-09] VITALS: Ht 170.2 cm; Wt 76.7 kg
[~2019-06-09 12:16] MED LIST changes: +CIPROFLOXACIN500 M2 ORAL; +TRAMADOL HCL50 MG ORAL
--- NOTE | 2019-06-09 12:41 | Emergency Room Report ---
History of Present Illness General Chief Complaint: Eye Problems Source: Patient Present Illness HPI Presents with 8 days of left eye visual changes, eye pain and dizziness. He was eating when this began. He felt off balance "gradual". He is a diabetic. His sugars have been well controlled according to him. He has never had this problem before. There is no extremity weakness. He denies headache. There is no fever. There is no numbness. No head trauma. No blood thinners. No history of hypertension. No oncologic problems. No neck pain. No sore throat, chest pain, palpitations, nausea, vomiting, diarrhea, dysuria, abdominal pain, shortness of breath, joint pain, rashes, depression, anxiety. The patient was admitted to this hospital for osteomyelitis 2017. D/C dx: 1. Acute osteomyelitis of the left foot. 2. Diabetes mellitus, out of control. 3. Elevated liver transaminases. 4. Gas gangrene on the left foot. 5. Left foot cellulitis. 6. Hepatic steatosis. 7. Lactic acidosis. Allergies: Coded Allergies: No Known Allergies (Unverified , 10/08/16) Patient History Past Medical History: see triage record Social History: Reports: drug use - see tox; Denies: smoking, alcohol use Social History Narrative born in [place] Reviewed Nursing Documentation: PMH: Agreed; PSxH: Agreed Nursing Documentation-PMH Past Medical History: No History, Except For Hx Hypertension: Yes Hx Diabetes: Yes Review of Systems All Other Systems: negative except mentioned in HPI Physical Exam Vital Signs Date Time Temp Pulse Resp B/P (MAP) Pulse Ox O2 Delivery O2 Flow Rate FiO2 06/09/19 12:22 98.8 122 18 183/98 (126) 95 Room Air Sp02 EP Interpretation: reviewed, normal General Appearance: well appearing, no apparent distress, GCS 15, non-toxic Head: normocephalic Eyes: bilateral eye PERRL, bilateral eye abnormal EOM - L LR palsy ENT: moist mucus membranes Neck: supple Respiratory: chest non-tender, lungs clear, normal breath sounds Cardiovascular #1: tachycardia Cardiovascular #2: 2+ radial (R) Gastrointestinal: normal inspection, non tender, no mass, non-distended, decreased bowel sounds Genitourinary: no CVA tenderness Musculoskeletal: back normal, gait/station normal, normal range of motion Neurologic: alert, oriented x3, DTRs symmetric, sensory intact, cerebellar normal, normal gait, speech normal, other - left lateral rectus palsy Psychiatric: mood/affect normal Skin: other - Tniea versicolor back Medical Decision Making Diagnostic Impression: Primary Impression: Hyperosmolar syndrome Additional Impressions: Hyperglycemia Lateral rectus palsy Qualified Codes: H49.22 - Sixth [abducent] nerve palsy, left eye Amphetamine abuse ER Course Patient presents with left eye pain with visual changes and a drunk feeling with history of diabetes. Differential includes occipital infarct, glaucoma, arterial occlusion, retinal detachment, diabetic retinopathy amongst others. There is a left lateral rectus palsy evaluation with EKG, chest x-ray, MRI of the head and labs including sedimentation rate. Patient is given some IV hydration. 8 day duration makes process sub-acute. EKG ST, no injury. Accu-Chek here is 383 (initally told Hi). IV hydration begun. We need to exclude diabetic ketoacidosis. MRI is canceled as most likely this is due to elevated blood sugar. However CT of the head is ordered as within 8 days lesion should show up. CT normal. Labs with normal white count. Minimally elevated sed rate. Elevated glucose without evidence of diabetic ketoacidosis. Elevated transaminases (history of same). Ocular pressure left eye 22 2728. Right eye 17 and 18. VA - Left = 20/100, R = 20/70, marek = 20/50. Repeat glucose after bolus = 301 at 14:25. Discussed with Dr. Vitale at [facility]. Stable for transfer. Consider neurology/opthalmology consult. 14:45 Tox + amphetamines. Discussed with patient positive tox screen. He admits to this. Discussion of follow-up with 12-step program. Final glucose prior to transfer 153. Laboratory Tests Test 06/09/19 12:55 White Blood Count 4.3 K/UL (4.8-10.8) L Red Blood Count 5.28 M/UL (4.70-6.10) Hemoglobin 16.7 G/DL (14.2-18.0) Hematocrit 47.0 % (42.0-52.0) Mean Corpuscular Volume 89 FL (80-99) Mean Corpuscular Hemoglobin 31.5 PG (27.0-31.0) H Mean Corpuscular Hemoglobin Concent 35.5 G/DL (32.0-36.0) Red Cell Distribution Width 13.3 % (11.6-14.8) Platelet Count 200 K/UL (150-450) Mean Platelet Volume 7.3 FL (6.5-10.1) Neutrophils (%) (Auto) 55.4 % (45.0-75.0) Lymphocytes (%) (Auto) 29.1 % (20.0-45.0) Monocytes (%) (Auto) 10.7 % (1.0-10.0) H Eosinophils (%) (Auto) 2.0 % (0.0-3.0) Basophils (%) (Auto) 2.8 % (0.0-2.0) H Erythrocyte Sedimentation Rate 26 MM/HR (0-15) H Prothrombin Time 9.4 SEC (9.30-11.50) Prothrombin Time INR 0.9 (0.9-1.1) PTT 25 SEC (23-33) Urine Color Pale yellow Urine Appearance Clear Urine pH 6 (4.5-8.0) Urine Specific [place] 1.010 (1.005-1.035) Urine Protein 3+ (NEGATIVE) H Urine Glucose (UA) 4+ (NEGATIVE) H Urine Ketones Negative (NEGATIVE) Urine Blood 2+ (NEGATIVE) H Urine Nitrite Negative (NEGATIVE) Urine Bilirubin Negative (NEGATIVE) Urine Urobilinogen Normal MG/DL (0.0-1.0) Urine Leukocyte Esterase Negative (NEGATIVE) Urine RBC 2-4 /HPF (0 - 0) H Urine WBC 0 /HPF (0 - 0) Urine Squamous Epithelial Cells None /LPF (NONE/OCC) Urine Bacteria None /HPF (NONE) Sodium Level 136 MMOL/L (136-145) Potassium Level 4.4 MMOL/L (3.5-5.1) Chloride Level 100 MMOL/L (98-107) Carbon Dioxide Level 29 MMOL/L (21-32) Anion Gap 7 mmol/L (5-15) Blood Urea Nitrogen 12 mg/dL (7-18) Creatinine 0.9 MG/DL (0.55-1.30) Estimate Glomerular Filtration Rate > 60 mL/min (>60) Glucose Level 432 MG/DL (74-106) H Calcium Level 9.2 MG/DL (8.5-10.1) Total Bilirubin 0.6 MG/DL (0.2-1.0) Aspartate Amino Transferase (AST) 84 U/L (15-37) H Alanine Aminotransferase (ALT) 157 U/L (12-78) H Alkaline Phosphatase 180 U/L (46-116) H Total Creatine Kinase 113 U/L (26-308) Troponin I 0.000 ng/mL (0.000-0.056) C-Reactive Protein, Quantitative < 0.4 mg/dL (0.00-0.90) Pro-B-Type Natriuretic Peptide 38 pg/mL (0-125) Total Protein 7.2 G/DL (6.4-8.2) Albumin 3.3 G/DL (3.4-5.0) L Globulin 3.9 g/dL Albumin/Globulin Ratio 0.8 (1.0-2.7) L Urine Opiates Screen Negative (NEGATIVE) Urine Barbiturates Screen Negative (NEGATIVE) Phencyclidine (PCP) Screen Negative (NEGATIVE) Urine Amphetamines Screen Positive (NEGATIVE) H Urine Benzodiazepines Screen Negative (NEGATIVE) Urine Cocaine Screen Negative (NEGATIVE) Urine Marijuana (THC) Screen Negative (NEGATIVE) Serum Alcohol < 3 mg/dL EKG Diagnostic Results Rate: tachycardiac Rhythm: NSR ST Segments: no acute changes Rhythm Strip Diag. Results EP Interpretation: yes Rhythm: no PVC's, no ectopy, other - Sinus tachycardia Chest X-Ray Diagnostic Results Chest X-Ray Diagnostic Results : Chest X-Ray Ordered: Yes # of Views/Limited/Complete: 1 View Indication: Other EP Interpretation: Yes Interpretation: no consolidation, no effusion, no pneumothorax Impression: No acute disease Electronically Signed by: Electronically signed by Massimo Griffith MD CT/MRI/US Diagnostic Results CT/MRI/US Diagnostic Results : Imaging Test Ordered: head Impression no bleed or infarct Last Vital Signs Date Time Temp Pulse Resp B/P (MAP) Pulse Ox O2 Delivery O2 Flow Rate FiO2 06/09/19 18:00 98.8 111 21 149/77 98 Room Air Status: improved Disposition: XFER SHT-TRM HOSP Condition: Serious Massimo Griffith MD Jun 09, 2019 12:41
[2019-06-09] MEDS ORDERED: Gadavist 7.5mMol/7.5ml vial IV PRN (12:45)
[2019-06-09] MEDS ORDERED: Tetracaine 0.5% Opth 4ml Soln LEFT EYE ONE (12:45)
--- NOTE | 2019-06-09 13:00 | NUR ---
ED Nurse Note: pt walked in due to left eye pain. pt stated its been happening for 8 days now, pt noted to have non symetrical eye movement. pt stated he has dm, BS 383, ermd made aware. blood and urine was sent. will continue to monitor.
--- NOTE | 2019-06-09 13:05 | NUR ---
ED Nurse Note: tetracaine applied by faviola.
[2019-06-09 13:09] VITALS: BP 183/98
[2019-06-09] MEDS ORDERED: GLIPIZIDE XL10 MG ORAL (13:13)
[2019-06-09 13:27] LABS: APPEARANCE,URINE CLEAR; BASOPHILS % (AUTO) 2.8 % (0.0-2.0); BILIRUBIN, URINE NEGATIVE (NEGATIVE); COLOR,URINE PALE YELLOW; GLUCOSE, URINE (UA) 4+ (NEGATIVE); HEMOGLOBIN 16.7 G/DL (14.2-18.0); KETONES,URINE NEGATIVE (NEGATIVE); LEUKOCYTE ESTERASE ,URINE NEGATIVE (NEGATIVE); LYMPHOCYTES % (AUTO) 29.1 % (20.0-45.0); MEAN CORPUSCULAR VOLUME 89 FL (80-99); MONOCYTES % (AUTO) 10.7 % (1.0-10.0); NEUTROPHILS % (AUTO) 55.4 % (45.0-75.0); NITRITE,URINE NEGATIVE (NEGATIVE); PH,URINE 6 (4.5-8.0); PLATELET COUNT 200 K/UL (150-450); PROTEIN,URINE 3+ (NEGATIVE); RED BLOOD COUNT 5.28 M/UL (4.70-6.10); RED CELL DISTRIBUTION WIDTH 13.3 % (11.6-14.8); UROBILINOGEN,URINE NORMAL MG/DL (0.0-1.0); WHITE BLOOD COUNT 4.3 K/UL (4.8-10.8)
[2019-06-09 13:34] LABS: ANION GAP 7 mmol/L (5-15); BLOOD UREA NITROGEN 12 mg/dL (7-18); CALCIUM 9.2 MG/DL (8.5-10.1); CARBON DIOXIDE 29 MMOL/L (21-32); CHLORIDE 100 MMOL/L (98-107); CREATININE 0.9 MG/DL (0.55-1.30); POTASSIUM 4.4 MMOL/L (3.5-5.1); SODIUM 136 MMOL/L (136-145)
--- NOTE | 2019-06-09 13:35 | NUR ---
ED Nurse Note:pt. has CT head done
[2019-06-09 13:38] LABS: INR 0.9 (0.9-1.1)
[2019-06-09 13:45] LABS: ALANINE AMINOTRANSFERASE 157 U/L (12-78); ALBUMIN 3.3 G/DL (3.4-5.0); ALBUMIN/GLOBULIN RATIO 0.8 (1.0-2.7); ALKALINE PHOSPHATASE 180 U/L (46-116); ASPARTATE AMINO TRANSFERASE 84 U/L (15-37); BILIRUBIN,TOTAL 0.6 MG/DL (0.2-1.0); CREATINE KINASE 113 U/L (26-308)
--- NOTE | 2019-06-09 14:13 | Diagnostic Imaging Report ---
Indications: A Technique: Spiral acquisitions obtained through the brain. Angled axial and coronal 5 x 5 mm slices were reconstructed. Total dose length product 1383.12 mGycm. CTDI vol(s) 70.38 mGy. Dose reduction achieved using automated exposure control Comparison: None. Findings: No acute intracranial hemorrhage or edema. No mass effect nor midline shift. Normal torres-white differentiation. Normal size ventricles and extra-axial CSF spaces. Intact calvarium. Visualized orbits and sinuses are unremarkable. The mastoids are clear. Impression: Negative The CT scanner at [facility] is accredited by the [employer] and the scans are performed using protocols designed to limit radiation exposure to as low as reasonably achievable to attain images of sufficient resolution adequate for diagnostic evaluation.
--- NOTE | 2019-06-09 14:29 | Diagnostic Imaging Report ---
Indication: Cough Technique: One view of the chest Comparison: 08/27/2017 Findings: The lungs and pleural spaces are clear. The heart size is normal. Calcified granuloma is again demonstrated in the left upper lung Impression: No acute process
[2019-06-09] MEDS ORDERED: Insulin Human Regular 100units/ml 3ml IV ONE (14:30)
[2019-06-09 16:17] VITALS: BP 174/91
--- NOTE | 2019-06-09 16:47 | NUR ---
ED Nurse Note:called [facility] -given report to Soheila PALMER
[2019-06-09 17:59] VITALS: BP 149/89
[2019-06-09 18:00] VITALS: BP 149/77
--- NOTE | 2019-06-09 18:06 | NUR ---
ED Nurse Note:pt. was picked up by ambulance for transfer to [facility], condition stable
--- NOTE | 2019-06-10 16:40 | Cardiology Report ---
APPROVED REPORT EKG Measurement Heart [id number] 140P-5 [id number] Sinus tachycardia with fusion complexes Minimal voltage criteria for LVH, may be normal variant Septal infarct, age undetermined Abnormal ECG
== END 2019-06-09 18:07 | disposition short-term general hospital (02) ==
LOC: EMR 13:42
DX: E87.0 Hyperosmolality and hypernatremia (principal); E11.65 Type 2 diabetes mellitus with hyperglycemia; H49.882 Other paralytic strabismus, left eye; F15.10 Other stimulant abuse, uncomplicated; I10 Essential (primary) hypertension; B36.0 Pityriasis versicolor; R00.0 Tachycardia, unspecified
CPT/HCPCS: 36415; 70450; 71045; 80053; 80307; 80329; 81003; 82550; 82962; 83880; 84484; 85025; 85610; 85651; 85730; 86140; 93005; 96361; 96374; 96375; 99284; J0360; J1815